=== PATIENT | female | born 2000 | race Caucasian/White ===

== ENCOUNTER 2024-01-23 16:02 | Emergency (ER) | payer OTHER, SELFPAY ==
--- NOTE | ~2024-01-23 | XR_ITS ---
XR chest 1V portable Ordering provider: Camila Pierce MD History: 23 years Female with . palpitations/tachycardia; SHIELD abdomen. 19 wks preg . Comparison: None. FINDINGS: MEDIASTINUM: The cardiac silhouette is not enlarged. LUNGS: No effusions or pneumothorax. Prominent bronchovascular markings in the left lower lobe medial ly. Early pneumonia is not excluded. OTHER: No free air under the diaphragm. IMPRESSION: Prominent markings in the left lower lobe medially which may indicate early pneumonia. Follow-up advi sed. Reviewed, dictated and finalized at location A. IMPRESSION: Prominent markings in the left lower lobe medially which may indicate early pne umonia. Follow-up advised.
--- NOTE | 2024-01-23 16:09 | ECG_ITS ---
Test Date: 2024-01-23 16:18:59 Measurements Intervals [place] Rate: 101 P: 19 NE: 157 QRS: 24 QRSD: 91 T: 9 QT: 341 QTc: 443 Interpretive Statements SINUS TACHYCARDIA OTHERWISE WITHIN NORMAL LIMITS No previous ECG available for comparison Electronically Signed On 01-24-2024 09:41:12 CDT by Barrie Klein M.D.
[2024-01-23 16:15] VITALS: BP 148/76; PULSE 101; RESP 16; TEMP 36.4; O2SAT 99
[2024-01-23 16:58] VITALS: BP 149/78; PULSE 100; RESP 18; O2SAT 98
--- NOTE | 2024-01-23 17:44 | ED.ARRPALP ---
HPI - Arrhythmia/Palpitations General Chief Complaint: Arrhythmia/Palpitations <Camila Pierce MD - Last Filed: 01/24/24 08:06> Stated Complaint: fast heart rate <Camila Pierce MD - Last Filed: 01/24/24 08:06> Time Seen by Provider: 01/23/24 16:58 <Camila Pierce MD - Last Filed: 01/24/24 08:06> Source: patient and other (Boyfriend) <Camila Pierce MD - Last Filed: 01/24/24 08:06> Mode of arrival: ambulatory <Camila Pierce MD - Last Filed: 01/24/24 08:06> Limitations: no limitations <Camila Pierce MD - Last Filed: 01/24/24 08:06> History of Present Illness HPI narrative: 23-year-old female at approximately 19 weeks gestational age presents with complaint of palpitations. She was sitting while at rest using her laptop when she felt like heart was racing and beating out of her chest. She checked her watch at this time and her heart rate was between 100 and 125 beats per minute. She has had a slight nonproductive cough but notes that this has generally only been she has not eaten for a bit. Denies any fevers or syncope. No history of anxiety or panic attacks. Denies any vision changes during the episode. Denies any underlying respiratory or cardiac history. This has never happened before. She did have some shortness breath which is now resolved. She has had no chest pain. She follows with Dr. Jarad Minor as her inspectors and regulatory officers. She denies leakage of fluid or contractions. He does feel like she has had some decreased movement today. <Camila Pierce MD - Last Filed: 01/24/24 08:06> Related Data Allergies/Adverse Reactions: Allergies Allergy/AdvReac Type Severity Reaction Status Date / Time No Known Allergies Allergy Verified 01/23/24 16:18 <Camila Pierce MD - Last Filed: 01/24/24 08:06> Exam Narrative: GENERAL: Well-appearing, well-nourished, and in no acute distress. HEAD: Normocephalic, atraumatic. EYES: Non injected, non icteric ENT: Nares clear, no rhinorrhea or epistaxis. NECK: Supple. CHEST: Speaking in full sentences. No respiratory distress. Lungs clear to auscultation bilaterally without wheezes or crackles. HEART: Mildly tachycardic rate and rhythm. Normal S1-S2 without appreciable murmur. ABDOMEN: Soft, nondistended. Obese. EXTREMITIES: Normal range of motion. No lower extremity edema bilaterally. SKIN: Warm, dry, no rash. NEURO: No focal deficits. Alert and oriented x3. PSYCH: Normal mood and affect. <Camila Pierce MD - Last Filed: 01/24/24 08:06> Course Vital Signs Vital signs: Vital Signs Temperature 97.5 F L 01/23/24 16:15 Pulse Rate 101 H 01/23/24 16:15 Respiratory Rate 16 01/23/24 16:15 Blood Pressure 148/76 H 01/23/24 16:15 Pulse Oximetry 99 01/23/24 16:15 Oxygen Delivery Room Air 01/23/24 16:15 Temperature 98.3 F 01/23/24 19:27 Pulse Rate 98 01/23/24 19:27 Respiratory Rate 19 01/23/24 19:27 Blood Pressure 137/67 01/23/24 19:27 Pulse Oximetry 100 01/23/24 19:27 Oxygen Delivery Room Air 01/23/24 16:15 <Camila Pierce MD - Last Filed: 01/24/24 08:06> Vital Signs Temperature 97.5 F L 01/23/24 16:15 Pulse Rate 101 H 01/23/24 16:15 Respiratory Rate 16 01/23/24 16:15 Blood Pressure 148/76 H 01/23/24 16:15 Pulse Oximetry 99 01/23/24 16:15 Oxygen Delivery Room Air 01/23/24 16:15 Temperature 98.3 F 01/23/24 19:27 Pulse Rate 98 01/23/24 19:27 Respiratory Rate 19 01/23/24 19:27 Blood Pressure 137/67 01/23/24 19:27 Pulse Oximetry 100 01/23/24 19:27 Oxygen Delivery Room Air 01/23/24 16:15 <Barrie León MD - Last Filed: 01/23/24 20:46> MDM - Arrhythmia/Palpitations MDM Narrative Medical decision making narrative: 23-year-old female at 19 weeks 3 days gestational age based on stated estimated due date of 06/15/2024 presents with palpita
[2024-01-23 18:22] VITALS: BP 151/83; PULSE 104; RESP 18; O2SAT 99
[2024-01-23 19:02] LABS: Basophils Absolute Auto 0.1 K/mm3 (0.0-0.1); Basophils Percent Auto 0.3 % (0.2-1.2); Eosinophils Absolute Auto 0.2 K/mm3 (0-0.3); Eosinophils Percent Auto 1.5 % (0-4.4); Hematocrit 35.3 % (37.0-47.0); Hemoglobin 11.5 g/dL (12.0-15.0); Immature Granulocyte Absolute 0.19 K/mm3 (0.00-0.031); Immature Granulocyte Percent A 1.2 % (0-0.5); Lymphocytes Absolute Auto 2.54 K/mm3 (0.9-3.2); Lymphocytes Percent Auto 16.4 % (18.3-44.2); Mean Corpuscular HGB Conc 32.6 g/dl (32-36); Mean Corpuscular Hemoglobin 26.4 pg (26-34); Mean Corpuscular Volume 81.1 fl (80-100); Mean Platelet Volume 9.9 fl (7.4-10.4); Monocytes Absolute Auto 1.1 K/mm3 (0.1-0.6); Monocytes Percent Auto 7.2 % (2.6-8.5); Neutrophils Absolute Auto 11.4 K/mm3 (1.3-6.7); Neutrophils Percent Auto 73.4 % (45.5-73.1); Platelet Count Result 268 k/mm3 (150-375); Red Blood Count 4.35 M/mm3 (4.2-5.4); Red Cell Distribution Width 13.2 % (11.5-14.5); White Blood Count 15.5 K/mm3 (4.5-10.0)
[2024-01-23 19:14] LABS: Prothrombin Time 13.9 Seconds (11.1-14.7)
[2024-01-23 19:15] LABS: Alanine Aminotransferase 15 U/L (6-35); Albumin Level 3.9 g/dL (3.5-5.1); Alkaline Phosphatase 52 U/L (38-126); Anion Gap 8 mmol/L (4-12); Aspartate Amino Transferase 23 U/L (14-36); Bilirubin,Total 0.2 mg/dL (0.2-1.3); Blood Urea Nitrogen 7 mg/dL (7-17); Calcium 8.9 mg/dL (8.4-10.2); Carbon Dioxide 22 mmol/L (22-30); Chloride 105 mmol/L (98-107); Estimated CRCL calculation 203 ml/min; Estimated Glomerular Filt Rate > 60; Glucose 96 mg/dL (65-110); Partial Thromboplastin Time 27.7 Seconds (22.3-36.8); Potassium 3.8 mmol/L (3.4-5.0); Sodium 135 mmol/L (137-145)
[2024-01-23 19:17] LABS: D Dimer 0.27 ug/mL (<0.48)
[2024-01-23 19:27] VITALS: BP 137/67; PULSE 98; RESP 19; TEMP 36.8; O2SAT 100
[2024-01-23 20:16] LABS: Influenza A QL RT-PCR Negative (Negative); Influenza B QL RT-PCR Negative (Negative); RSV RNA, RT-PCR Negative (Negative); SARS-CoV-2 RNA PCR Negative (Negative)
[2024-01-23] MEDS: AMOXICILLIN/CLAVULANATE K 875-125 MG TAB 1 TABLET PO (21:02)
[2024-01-23] MEDS: AZITHROMYCIN 250 MG TABLET 500 MG PO (21:02)
== END 2024-01-23 20:55 | disposition home or self-care (01) ==
PROVIDERS: Student in an Organized Health Care Education/Training Program; Emergency Provider Emergency Medicine
DX: O99.512 Diseases of the respiratory system complicating pregnancy, second trimester (principal); J18.9 Pneumonia, unspecified organism; O99.891 Other specified diseases and conditions complicating pregnancy; R00.0 Tachycardia, unspecified; Z20.822 Contact with and (suspected) exposure to COVID-19; Z3A.19 19 weeks gestation of pregnancy
CPT/HCPCS: 36415; 71045; 80053; 85025; 85380; 85610; 85730; 87637; 93005; 99283; A9270

== ENCOUNTER 2024-03-17 10:39 | Emergency (ER) | payer OTHER, SELFPAY ==
--- NOTE | ~2024-03-17 | XR_ITS ---
Clinical Indication: Cough PA and lateral views of the chest: Comparison: 01/23/2024 Findings: The lungs are clear, without evidence of focal consolidation or pleural effusion. Cardiome diastinal silhouette is within normal limits. Bones and soft tissues are unremarkable. Impression: Normal chest. Reviewed, dictated and finalized at location . RUMENTAL MUSIC TEACHER Impression: Normal chest.
--- NOTE | 2024-03-17 10:45 | ED.URI ---
HPI - URI/Sore Throat General Chief Complaint: Upper Respiratory Infection Stated Complaint: Congestion Time Seen by Provider: 03/17/24 10:50 Source: patient Mode of arrival: ambulatory Limitations: no limitations History of Present Illness HPI Narrative: iVk is a 23-year-old female patient presenting to the clinic today with complaints of productive cough with yellow phlegm, headache, sore throat, bilateral ear pain, nasal and chest congestion, and shortness of breath x3 days. She took Tylenol and Benadryl this morning. She is 27 weeks . Denies any chest pain. No history of prior DVT or PE. Was diagnosed with pneumonia back in January. No fever or chills. She does not appear to be any respiratory distress. She is able speak in full sentences without gasping for air in between words. She denies any abdominal pain or vaginal discharge. States that the baby has been active. MD elicited complaint: cough, sore throat, rhinorrhea, nasal congestion and other Related Data Allergies Allergy/AdvReac Type Severity Reaction Status Date / Time No Known Allergies Allergy Verified 03/17/24 11:00 Review of Systems Review of Systems: Pertinent positives per HPI. Patient denies any fever, chills, rash, headache, visual changes, dizziness, chest pain, palpitations, nausea, vomiting, diarrhea, constipation, abdominal pain, or any urinary issues. PMFSH Comments At the time of my signature, I reviewed and agree with the nursing past medical, surgical, social, and family history. There is no relevant family history pertinent to the patient complaint. Exam Narrative: General: Well-developed, morbidly obese, in no apparent distress Head: Normocephalic, atraumatic Eyes: Pupils equally round and reactive to light bilaterally, EOM intact, sclera and conjunctive clear, no discharge, lids normal Ears: TMs intact and congested, ear canals clear, no drainage, grossly hearing normal. Nose: Nares patent, clear nasal discharge, no inflammation, no sinus tenderness. Mouth: Oral pharynx without lesions or masses, good dentition, MMM. Neck: Supple, trachea midline, no enlargement of anterior or posterior cervical nodes, no thyroid masses or goiter palpable. Cardio: Regular rate and rhythm, s1 and s2 normal, no murmur appreciated. Resp: Clear to auscultation bilaterally, no rhonchi, rales, wheezing or rubs Course Course Emergency Course: Portions of this record may have been created with voice recognition software. Level of Care: Express Care Visit Vital Signs Vital signs: Vital Signs Oxygen Delivery Room Air 03/17/24 10:47 Temperature 36.6 C 03/17/24 10:49 Pulse Rate 114 H 03/17/24 10:49 Respiratory Rate 16 03/17/24 10:49 Blood Pressure 129/91 H 03/17/24 10:49 Pulse Oximetry 96 03/17/24 10:49 Oxygen Delivery Room Air 03/17/24 10:47 Vital signs reviewed MDM - URI/Sore Throat MDM Narrative Medical decision making narrative: At the time of visit patient is resting comfortably on the exam table. Patient appears to be nontoxic. Labs: COVID, influenza, and strep test were performed. All testing was negative. We will send strep for culture. Diagnostics: Chest x-ray is negative for any acute cardiopulmonary process. heart tones: heart tones were 148 in the clinic today Plan: Wells criteria- 1.5% low risk for PE. I suspect patient has URI with cough and congestion. Prescription for albuterol inhaler was sent to the pharmacy. Supportive measures were discussed with the patient and they voiced understanding discharge instructions and agrees to treatment plan. Return precautions reviewed Differential Diagnosis Differential diagnosis: Likely upper respiratory infection, otitis media, sinusitis, viral infection, bronchitis, influenza and pharyngitis Lab Data Labs: Lab Results 03/17/24 03/17/24 Range/Units 11:05 11:11 POC Influenza A Ag Negative (Negative) POC Influenza B Ag Negative (Negative) POC SARS CoV-2 Ag Pending POC Grp A Strep Screen Negative (Negative) Discharge Plan Discharge Clinical Impression: Upper respiratory infection with cough and congestion Patient Disposition: Home, Self-Care Condition: Stable Instructions: Antibiotic Form, Upper Respiratory Infection (ED) Additional Instructions: COVID, influenza, and strep test were all negative in the clinic today. We will send strep for culture. Chest x-rays negative for any acute cardiopulmonary process. Take prescription medications only as prescribed-albuterol inhaler Increase fluids and stay well hydrated Tylenol for pain/fever Flonase and OTC antihistamines such as Zyrtec or Claritin as directed Vicks vapor rub to open sinuses Sinus rinses for congestion Cepacol spray, cough drops, throat lozenges, warm tea with honey/lemon, gargle salt water to soothe throat BRAT diet for diarrhea Clear liquids x 24 hours then advance as tolerated for nausea/vomiting Go to the ED if you develop a worsening in your condition- high fever not controlled by Tylenol or Motrin, dehydration, weakness, lethargy, shortness of breath, or chest pain. Follow up with your PCP in 3-5 days if symptoms persist. Approved Medications for Patients Cold and Flu Symptoms --Tylenol (regular or extra Strength) Fever (call if over 101?)--Tylenol (regular or extra Strength) Nasal Drainage/Head Congestion--Chlor-Trimeton, Sudafed, Tavist,Tylenol Sinus Cough--Robitussin, Delsym, Mucinex Sore Throat--Chloraseptic, Cepacol lozenges Allergy Symptoms--Benadryl, Zyrtec, Zyrtec D, Claritin, Claritin D Nausea--Emetrol, Vitamin B6 Tablets, Rosario, Rosario Tea, Preggie Pops, B-Rubia Suckers Constipation--Milk of Magnesia, Metamucil, Fiberall, Konsyl, Colace (Docusate Sodium) Diarrhea--Imodium, Kaopectate, Follow BRAT diet: bananas, rice, applesauce, tea/toast Heartburn--Maalox, Mylanta, TUMS, Prilosec OTC, Zantac, Tagament, Prevacid, Pepcid Hemorrhoids--Tucks Pads, Anusol, Preparation H, warm sitz baths Patient Language: Montenegrin Prescriptions: New albuterol sulfate 90 mcg/actuation HFA aerosol inhaler 2 puff inhalation Q4-6H PRN (Reason: shortness of breath or wheezing) 30 Days Qty: 8.5 0RF No Action azithromycin 250 mg tablet 250 mg PO DAILY 4 Days Qty: 4 0RF Rx Instructions: start on day 2 of therapy amoxicillin-pot clavulanate 875-125 mg tablet 1 tablet PO Q12H Qty: 14 0RF Follow-up/Referrals: PHYSICIAN,AGRICULTURAL PRODUCTION ENGINEER [Primary Care Provider] - Time of Disposition: 11:49 Quality NIHSS Nursing Documentation ED NIHSS nursing documentation: reviewed/agree
[2024-03-17 10:49] VITALS: BP 129/91; PULSE 114; RESP 16; TEMP 36.6; O2SAT 96
[2024-03-17 11:06] LABS: EDSTREPNEGPOS1 Negative (Negative)
[2024-03-17 11:13] LABS: EDINFLUASCREEN Negative (Negative); EDINFLUBSCREEN Negative (Negative)
[2024-03-17 14:03] LABS: EDCOVIDSCREEN Yes (Negative)
== END 2024-03-17 11:45 | disposition home or self-care (01) ==
PROVIDERS: Emergency Provider Nurse Practitioner Family
DX: O99.512 Diseases of the respiratory system complicating pregnancy, second trimester (principal); Z3A.27 27 weeks gestation of pregnancy; J06.9 Acute upper respiratory infection, unspecified; Z20.822 Contact with and (suspected) exposure to COVID-19
CPT/HCPCS: 71046; 87081; 87426; 87804; 87880; 99213; G0463

== ENCOUNTER 2024-03-17 17:57 | Observation (INO) | payer OTHER, SELFPAY ==
[2024-03-17] VITALS (18 sets, daily range): BP systolic 134–156; BP diastolic 72–92; PULSE 67–142; RESP 16–24; TEMP 36.6–37.1; O2SAT 78–99; BMI 52.5
--- NOTE | 2024-03-17 18:10 | ECG_ITS ---
Test Date: 2024-03-17 18:18:36 Measurements Intervals [place] Rate: 128 P: 35 UT: 145 QRS: 55 QRSD: 85 T: 31 QT: 302 QTc: 441 Interpretive Statements SINUS TACHYCARDIA ABNORMAL RHYTHM ECG Compared to ECG 01/23/2024 16:18:59 No significant changes Electronically Signed On 03-17-2024 19:06:07 MERCHANDISE APPRAISER by Ysabel Kennedy
[2024-03-17 20:47] LABS: Basophils Absolute Auto 0.1 K/mm3 (0.0-0.1); Basophils Percent Auto 0.4 % (0.2-1.2); Eosinophils Absolute Auto 0.2 K/mm3 (0-0.3); Eosinophils Percent Auto 1.4 % (0-4.4); Hematocrit 36.9 % (37.0-47.0); Hemoglobin 12.1 g/dL (12.0-15.0); Immature Granulocyte Absolute 0.15 K/mm3 (0.00-0.031); Immature Granulocyte Percent A 1.2 % (0-0.5); Lymphocytes Absolute Auto 1.62 K/mm3 (0.9-3.2); Lymphocytes Percent Auto 13.3 % (18.3-44.2); Mean Corpuscular HGB Conc 32.8 g/dl (32-36); Mean Corpuscular Hemoglobin 26.1 pg (26-34); Mean Corpuscular Volume 79.7 fl (80-100); Mean Platelet Volume 9.8 fl (7.4-10.4); Monocytes Absolute Auto 1.2 K/mm3 (0.1-0.6); Monocytes Percent Auto 9.8 % (2.6-8.5); Neutrophils Percent Auto 73.9 % (45.5-73.1); Platelet Count Result 271 k/mm3 (150-375); Red Blood Count 4.63 M/mm3 (4.2-5.4); Red Cell Distribution Width 13.3 % (11.5-14.5); White Blood Count 12.2 K/mm3 (4.5-10.0)
[2024-03-17 21:02] LABS: Alanine Aminotransferase 24 U/L (6-35); Albumin Level 3.9 g/dL (3.5-5.1); Alkaline Phosphatase 81 U/L (38-126); Anion Gap 9 mmol/L (4-12); Aspartate Amino Transferase 59 U/L (14-36); Bilirubin,Total 0.4 mg/dL (0.2-1.3); Blood Urea Nitrogen 7 mg/dL (7-17); Calcium 9.2 mg/dL (8.4-10.2); Carbon Dioxide 18 mmol/L (22-30); Chloride 104 mmol/L (98-107); Estimated CRCL calculation 176 ml/min; Estimated Glomerular Filt Rate > 60; Glucose 93 mg/dL (65-110); Lipase 43 U/L (23-300); Potassium 3.9 mmol/L (3.4-5.0); Sodium 131 mmol/L (137-145)
[2024-03-17 21:06] LABS: Prothrombin Time 13.8 Seconds (11.1-14.7)
[2024-03-17] MEDS: SODIUM CHLORIDE 0.9% IV 1,000 ML 999 ML IV CONT (21:09)
[2024-03-17 21:14] LABS: Troponin I < 0.012 ng/mL (0.000-0.034)
[2024-03-17 21:15] LABS: Lactate Dehydrogenase 181 U/L (120-246); Magnesium 1.6 mg/dL (1.6-2.3); Uric Acid 6.2 mg/dL (2.5-7.5)
[2024-03-17 21:21] LABS: Add Urine Microscopic? YES; Appearance Urine Cloudy (Clear); Bacteria Urine Rare /hpf; Bilirubin Urine Negative (Negative); Blood Urine Negative (Negative); Color Urine Yellow (Yellow); Glucose Urine UA Negative (Negative); Ketones Urine 1+ mg/dL (Negative); Leukocyte Esterase Ur 1+ LEU/UL (Negative); Nitrate Urine Negative (Negative); Non Pathogenic Casts 0-2; Protein Urine Negative (Negative); RBC Urine 0-2 /hpf (0-2); Specific Grav Ur 1.008 (1.001-1.035); Squamous Epithelial Cell Urine Few /hpf (Few); Urobilinogen Urine 0.2 mg/dL (<2.0); pH Urine 6.5 (5.0-9.0)
[2024-03-17 21:54] LABS: Troponin I < 0.012 ng/mL (0.000-0.034)
--- NOTE | 2024-03-17 22:02 | ED_ITS ---
HPI - Chest Pain General Chief Complaint: Chest Pain Stated Complaint: chest pain Time Seen by Provider: 03/17/24 20:39 History of Present Illness HPI narrative: Patient is a 23-year-old female who presents to the emergency department this evening with multiple complaints. Patient is approximately [address] Minor as her OBGYN. She states that within the past 3 days she has been having URI symptoms including a cough, chest pain, right ear pain, nausea and vomiting. Patient also states that she has been having headaches for the past 3 days. Denies any history of migraine headaches and denies any history of hypertension. Patient admits that this is her 1st . Patient was seen at an urgent care and had negative viral swabs there today but was sent to our facility for further evaluation given that she is 27 weeks . Denies any additional symptoms or concerns at this time. Related Data Allergies Allergy/AdvReac Type Severity Reaction Status Date / Time No Known Allergies Allergy Verified 03/17/24 11:00 Review of Systems 2 Review of Systems: All systems are reviewed and are negative unless stated otherwise in the HPI. Exam 2 Narrative: General: Alert, awake, afebrile, in no acute distress. HEENT: PERRL, no rhinorrhea, no post nasal drip, oropharynx clear. Neck: Trachea midline, no JVD, no lymphadenopathy. Cardiovascular: Regular rate and rhythm, no murmurs, rubs or gallops, no peripheral edema. Respiratory: Clear to auscultation bilaterally, no tachypnea, no wheezing, no rhonchi, no rubs, no respiratory distress. Abdomen: Soft, nontender, nondistended, no rebound, no guarding, no peritoneal signs. Musculoskeletal: No joint swelling or deformity, normal muscle tone. Skin: No rashes or petechia, no signs of infection. Psychiatric: Alert and oriented, normal behavior and judgment for situation. Neurological: Alert and oriented to person, place, and time. Follows all commands. No focal deficits, speech is clear and fluent. Course Vital Signs Vital signs: Vital Signs Temperature 98 F 03/17/24 18:11 Pulse Rate 126 H 03/17/24 18:11 Respiratory Rate 16 03/17/24 18:11 Blood Pressure 148/92 H 03/17/24 18:11 Pulse Oximetry 98 03/17/24 18:11 Temperature 98 F 03/17/24 18:11 Pulse Rate 126 H 03/17/24 20:44 Respiratory Rate 24 H 03/17/24 20:44 Blood Pressure 144/73 H 03/17/24 20:44 Pulse Oximetry 96 03/17/24 20:44 Oxygen Delivery Room Air 03/17/24 20:42 MDM - Chest Pain MDM Narrative Medical decision making narrative: The patient was evaluated by myself in the emergency department. History is obtained from patient who is an independent historian and physical exam was performed. External medical records were reviewed at this time. IV was established and pertinent tests were ordered. Patient's blood pressure has been persistently elevated over 140 systolic during her 4 hour ED stay with blood pressure readings of 148/92, 149/73, 144/131 and 151/79. Patient denies any history of hypertension and states that she has never taken any blood pressure medications. EKG was obtained which revealed sinus tachycardia rate of 128 beats per Min. No ST changes, T wave inversions or evidence of acute ischemia. EKG was independently interpreted by me and is currently pending official cardiology read. Laboratory results obtained revealing a leukocytosis of 12.2, AST 59 otherwise unremarkable. Urinalysis revealed 1+ ketones. Patient was administered 1 L IV fluid bolus with normal saline. Given her ear pain and right tympanic membrane erythema patient was also started on Augmentin b.i.d. for otitis media. Differential diagnosis considerations include acute viral syndrome, dehydration, electrolyte derangements, preeclampsia. Comorbidities impacting this visit include current 2nd trimester . At this time, case was discussed with the on-call OBGYN for Dr. Minor, Dr. Sher at 2200 regarding admission for concern for preeclampsia. After discussing the case with him he did agree to admitting the patient to L&D for observation. I have evaluated and discussed social determinants of health with the patient that could potentially impact subsequent diagnosis and treatment plans. On repeat assessment of the patient, reevaluation revealed that the patient is doing well and is in no acute distress. Patient symptoms have improved since she arrived to our emergency department. Repeat vital signs were all reviewed and noted to be stable. Differential diagnosis and treatment plan were discussed with the patient at bedside. Patient agrees with discussion and after shared medical decision making agrees with admission. All questions were answered to the patient's satisfaction. Patient was admitted to our labor and delivery unit in stable condition. Lab Data 03/17/24 20:41 03/17/24 20:41 Labs: Lab Results 03/17/24 03/17/24 03/17/24 Range/Units 20:41 21:08 21:27 WBC 12.2 H (4.5-10.0) K/mm3 RBC 4.63 (4.2-5.4) M/mm3 Hgb 12.1 (12.0-15.0) g/dL Hct 36.9 L (37.0-47.0) % MCV 79.7 L (80-100) fl MCH 26.1 (26-34) pg MCHC 32.8 (32-36) g/dl RDW 13.3 (11.5-14.5) % Plt Count 271 (150-375) k/mm3 MPV 9.8 (7.4-10.4) fl Immature Gran % (Auto) 1.2 H (0-0.5) % Neut % (Auto) 73.9 H (45.5-73.1) % Lymph % (Auto) 13.3 L (18.3-44.2) % [place] % (Auto) 9.8 H (2.6-8.5) % Eos % (Auto) 1.4 (0-4.4) % Baso % (Auto) 0.4 (0.2-1.2) % Lymph # (Auto) 1.62 (0.9-3.2) K/mm3 [place] # (Auto) 1.2 H (0.1-0.6) K/mm3 Eos # (Auto) 0.2 (0-0.3) K/mm3 Baso # (Auto) 0.1 (0.0-0.1) K/mm3 Abs Immat Gran (auto) 0.15 H (0.00-0.031) K/mm3 Absolute Neuts (auto) 9.0 H (1.3-6.7) K/mm3 Absolute Nucleated RBC 0.000 (0.0-0.012) K/mm3 Nucleated RBC % 0.0 (0.0-0.2) % PT 13.8 (11.1-14.7) Seconds INR 1.0 APTT 29.0 (22.3-36.8) Seconds Sodium 131 L (137-145) mmol/L Potassium 3.9 (3.4-5.0) mmol/L Chloride 104 (98-107) mmol/L Carbon Dioxide 18 L (22-30) mmol/L Anion Gap 9 (4-12) mmol/L BUN 7 (7-17) mg/dL Creatinine 0.60 L (0.7-1.0) mg/dL Estim Creat Clear Calc 176 ml/min Estimated GFR > 60 (59 - ) Glucose 93 (65-110) mg/dL Uric Acid 6.2 (2.5-7.5) mg/dL Calcium 9.2 (8.4-10.2) mg/dL Magnesium 1.6 (1.6-2.3) mg/dL Total Bilirubin 0.4 (0.2-1.3) mg/dL AST 59 H (14-36) U/L ALT 24 (6-35) U/L Alkaline Phosphatase 81 (38-126) U/L Lactate Dehydrogenase 181 (120-246) U/L Troponin I < 0.012 < 0.012 (0.000-0.034) ng/mL Total Protein 7.0 (6.3-8.2) g/dL Albumin 3.9 (3.5-5.1) g/dL Lipase 43 (23-300) U/L Urine Color Yellow (Yellow) Urine Appearance Cloudy H (Clear) Urine pH 6.5 (5.0-9.0) Ur Specific [place] 1.008 (1.001-1.035) Urine Protein Negative (Negative) mg/dL Urine Glucose (UA) Negative (Negative) mg/dL Urine Ketones 1+ H (Negative) mg/dL Ur Blood (Man) Negative (Negative) Urine Nitrate Negative (Negative) Urine Bilirubin Negative (Negative) Urine Urobilinogen 0.2 (<2.0) mg/dL Leukocyte Esterase Rfl 1+ H (Negative) QUINTIN/UL Urine RBC 0-2 (0-2) /hpf Urine WBC 6-10 H (0-3) /hpf Ur Squamous Epith Cells Few (Few) /hpf Urine Bacteria Rare /hpf Urine Casts 0-2 Discharge Plan Discharge Clinical Impression: Acute viral syndrome, Pre-eclampsia Patient Disposition: Still a Patient Condition: Improved Patient Language: Mongolian Prescriptions: No Action albuterol sulfate 90 mcg/actuation HFA aerosol inhaler 2 puff inhalation Q4-6H PRN (Reason: shortness of breath or wheezing) 30 Days Qty: 8.5 0RF azithromycin 250 mg tablet 250 mg PO DAILY 4 Days Qty: 4 0RF Rx Instructions: start on day 2 of therapy amoxicillin-pot clavulanate 875-125 mg tablet 1 tablet PO Q12H Qty: 14 0RF Follow-up/Referrals: PHYSICIAN,DIRECTOR DIGITAL COMMUNICATIONS [Primary Care Provider] - Time of Disposition: 22:41
[2024-03-17] MEDS: AMOXICILLIN/CLAVULANATE K 875-125 MG TAB 1 TABLET PO (22:53)
--- NOTE | 2024-03-17 22:57 | PC.NURSE ---
Pt arrives to unit from the ED with a headache, cough, right ear pain, and nausea.
--- NOTE | 2024-03-17 23:26 | OBADM ---
This patient, Rochelle Louise, admitted to the OB room [facility] Post [facility] for observation. Patient/family oriented to hospital policies and general routines including ID bracelet, bed and alarms, visiting hours, pain management, procedures, bathroom and other care routines, personal items, smoking policy, room service/diet, and visiting hours. Patient/Family are encouraged to report perceived risks to care and to ask questions if they do not understand what they are told or what they should do.
--- NOTE | 2024-03-17 23:42 | PC.NURSE ---
Called Fide Souza CNM, update on pt, headache, cough, right ear pain, nausea, blood pressure, tracing, EKG, chest X-ray, labs, and medications given in the ER. Orders received to administer LR at 125 ml/hr, tylenol 1000 mg as needed, robitussin as needed, vitals signs every four hours, and NST every shift.
[2024-03-18] VITALS (31 sets, daily range): BP systolic 124–156; BP diastolic 65–98; PULSE 66–159; RESP 18–20; TEMP 36.3–36.6; O2SAT 78–100
[2024-03-18] MEDS: LACTATED RINGERS 1,000 ML 125 ML IV CONT ×2 (00:07→07:58)
[2024-03-18] MEDS: guaiFENesin/DEXTROMETHORPHAN 10 ML UDC 5 ML PO ×2 (00:12→04:05)
[2024-03-18] MEDS: ACETAMINOPHEN 500 MG TABLET 1000 MG PO (03:50)
[2024-03-18] MEDS: CALCIUM CARBONATE (TUMS) 500 MG (200 MG ELEMENTAL) PO (03:50)
--- NOTE | 2024-04-10 11:20 | P.PNOB_ITS ---
OB - Triage/Final Diagnosis Visit Information Comments/Additional reasons for admission: I have assessed the risk for this patient, Rochelle Louise, and determined that she would benefit from observation care. Evaluation Laboratory results: Laboratory Tests 03/17/24 03/17/24 03/17/24 20:41 21:08 21:27 WBC 12.2 H RBC 4.63 Hgb 12.1 Hct 36.9 L MCV 79.7 L MCH 26.1 MCHC 32.8 RDW 13.3 Plt Count 271 MPV 9.8 Immature Gran % (Auto) 1.2 H Neut % (Auto) 73.9 H Lymph % (Auto) 13.3 L [place] % (Auto) 9.8 H Eos % (Auto) 1.4 Baso % (Auto) 0.4 Lymph # (Auto) 1.62 [place] # (Auto) 1.2 H Eos # (Auto) 0.2 Baso # (Auto) 0.1 Abs Immat Gran (auto) 0.15 H Absolute Neuts (auto) 9.0 H Absolute Nucleated RBC 0.000 Nucleated RBC % 0.0 PT 13.8 INR 1.0 APTT 29.0 Sodium 131 L Potassium 3.9 Chloride 104 Carbon Dioxide 18 L Anion Gap 9 BUN 7 Creatinine 0.60 L Estim Creat Clear Calc 176 Estimated GFR > 60 Glucose 93 Uric Acid 6.2 Calcium 9.2 Magnesium 1.6 Total Bilirubin 0.4 AST 59 H ALT 24 Alkaline Phosphatase 81 Lactate Dehydrogenase 181 Troponin I < 0.012 < 0.012 Total Protein 7.0 Albumin 3.9 Lipase 43 Urine Color Yellow Urine Appearance Cloudy H Urine pH 6.5 Ur Specific [place] 1.008 Urine Protein Negative Urine Glucose (UA) Negative Urine Ketones 1+ H Ur Blood (Man) Negative Urine Nitrate Negative Urine Bilirubin Negative Urine Urobilinogen 0.2 Leukocyte Esterase Rfl 1+ H Urine RBC 0-2 Urine WBC 6-10 H Ur Squamous Epith Cells Few Urine Bacteria Rare Urine Casts 0-2 Final Diagnosis (1) Upper respiratory infection: Code(s): J06.9 - Acute upper respiratory infection, unspecified Status: Acute
== END 2024-03-18 10:07 | disposition home or self-care (01) ==
LOC: ANHED 22:41 → ANHOBPP 23:03
PROVIDERS: Family Medicine; Admitting Provider Obstetrics & Gynecology; Emergency Provider Emergency Medicine; Visit Provider Obstetrics & Gynecology
DX: O99.512 Diseases of the respiratory system complicating pregnancy, second trimester (principal); J06.9 Acute upper respiratory infection, unspecified; O14.92 Unspecified pre-eclampsia, second trimester; Z3A.27 27 weeks gestation of pregnancy; Z20.822 Contact with and (suspected) exposure to COVID-19
CPT/HCPCS: 36415; 59025; 71046; 80053; 81001; 83615; 83690; 83735; 84484; 84550; 85025; 85610; 85730; 87081; 87086; 87426; 87804; 87880; 93005; 96360; 96361; 99285; A9270; G0378; J7030; J7120

== ENCOUNTER 2024-04-23 15:55 | Outpatient (CLI) | payer OTHER, SELFPAY ==
[2024-04-23 16:31] VITALS: BP 141/75; PULSE 99
[2024-04-23 16:35] LABS: Add Urine Microscopic? NO; Appearance Urine Clear (Clear); Bilirubin Urine Negative (Negative); Blood Urine Negative (Negative); Color Urine Yellow (Yellow); Glucose Urine UA Negative (Negative); Ketones Urine 1+ mg/dL (Negative); Leukocyte Esterase Ur Negative LEU/UL (Negative); Nitrate Urine Negative (Negative); Protein Urine Negative (Negative); Specific Grav Ur 1.006 (1.001-1.035); Urobilinogen Urine 0.2 mg/dL (<2.0)
[2024-04-23 16:35] LABS: Basophils Percent Auto 0.3 % (0.2-1.2); Eosinophils Absolute Auto 0.1 K/mm3 (0-0.3); Eosinophils Percent Auto 0.7 % (0-4.4); Hematocrit 37.8 % (37.0-47.0); Hemoglobin 12.2 g/dL (12.0-15.0); Immature Granulocyte Absolute 0.08 K/mm3 (0.00-0.031); Immature Granulocyte Percent A 0.7 % (0-0.5); Lymphocytes Absolute Auto 2.22 K/mm3 (0.9-3.2); Lymphocytes Percent Auto 18.2 % (18.3-44.2); Mean Corpuscular HGB Conc 32.3 g/dl (32-36); Mean Corpuscular Hemoglobin 25.6 pg (26-34); Mean Corpuscular Volume 79.2 fl (80-100); Mean Platelet Volume 10.8 fl (7.4-10.4); Monocytes Absolute Auto 0.9 K/mm3 (0.1-0.6); Monocytes Percent Auto 7.2 % (2.6-8.5); Neutrophils Absolute Auto 8.9 K/mm3 (1.3-6.7); Neutrophils Percent Auto 72.9 % (45.5-73.1); Platelet Count Result 280 k/mm3 (150-375); Red Blood Count 4.77 M/mm3 (4.2-5.4); Red Cell Distribution Width 14.2 % (11.5-14.5); White Blood Count 12.2 K/mm3 (4.5-10.0)
[2024-04-23 16:42] LABS: Creatinine Urine 42.8 mg/dL; Total Protein Urine Random 32 mg/dL; Ur Ttl Prot Creatinine Ratio 0.75 mg/mg (0-0.20)
[2024-04-23 16:46] VITALS: BP 139/86; PULSE 109
[2024-04-23 16:50] LABS: Alanine Aminotransferase 24 U/L (6-35); Albumin Level 3.6 g/dL (3.5-5.1); Alkaline Phosphatase 89 U/L (38-126); Anion Gap 11 mmol/L (4-12); Aspartate Amino Transferase 41 U/L (14-36); Bilirubin,Total 0.4 mg/dL (0.2-1.3); Blood Urea Nitrogen 9 mg/dL (7-17); Calcium 10.3 mg/dL (8.4-10.2); Carbon Dioxide 16 mmol/L (22-30); Chloride 106 mmol/L (98-107); Estimated Glomerular Filt Rate > 60; Glucose 84 mg/dL (65-110); Potassium 4.2 mmol/L (3.4-5.0); Sodium 133 mmol/L (137-145)
[2024-04-23 17:01] VITALS: BP 130/78; PULSE 101
--- NOTE | 2024-04-23 17:07 | PC.NURSE ---
Report to Dr. Minor re: BP's and lab results. Orders to DC home with instructions re: preeclampsia.
[2024-04-23 17:12] VITALS: BMI 52.4
== END 2024-04-23 17:15 | disposition home or self-care (01) ==
LOC: ANHOBOP 16:04 → ANHLDR 16:06
PROVIDERS: Visit Provider Obstetrics & Gynecology
DX: O13.9 Gestational [pregnancy-induced] hypertension without significant proteinuria, unspecified trimester (principal); Z3A.00 Weeks of gestation of pregnancy not specified
CPT/HCPCS: 36415; 59025; 80053; 81003; 82570; 84156; 84550; 85025; 99199

== ENCOUNTER 2024-04-29 10:14 | Outpatient (CLI) | payer OTHER, SELFPAY ==
[2024-04-29 10:40] LABS: Basophils Percent Auto 0.3 % (0.2-1.2); Eosinophils Absolute Auto 0.1 K/mm3 (0-0.3); Eosinophils Percent Auto 1.1 % (0-4.4); Hematocrit 38.9 % (37.0-47.0); Hemoglobin 12.6 g/dL (12.0-15.0); Immature Granulocyte Absolute 0.06 K/mm3 (0.00-0.031); Immature Granulocyte Percent A 0.5 % (0-0.5); Lymphocytes Absolute Auto 2.22 K/mm3 (0.9-3.2); Lymphocytes Percent Auto 18.3 % (18.3-44.2); Mean Corpuscular HGB Conc 32.4 g/dl (32-36); Mean Corpuscular Hemoglobin 25.8 pg (26-34); Mean Corpuscular Volume 79.7 fl (80-100); Mean Platelet Volume 10.8 fl (7.4-10.4); Monocytes Absolute Auto 0.9 K/mm3 (0.1-0.6); Monocytes Percent Auto 7.1 % (2.6-8.5); Neutrophils Absolute Auto 8.8 K/mm3 (1.3-6.7); Neutrophils Percent Auto 72.7 % (45.5-73.1); Platelet Count Result 274 k/mm3 (150-375); Red Blood Count 4.88 M/mm3 (4.2-5.4); Red Cell Distribution Width 14.4 % (11.5-14.5); White Blood Count 12.1 K/mm3 (4.5-10.0)
[2024-04-29 10:47] VITALS: BP 123/63; PULSE 101
[2024-04-29 10:48] VITALS: BP 123/63; PULSE 85
[2024-04-29 10:49] LABS: Add Urine Microscopic? YES; Appearance Urine Clear (Clear); Bacteria Urine 2+ /hpf; Bilirubin Urine Negative (Negative); Blood Urine Negative (Negative); Color Urine Yellow (Yellow); Glucose Urine UA Negative (Negative); Ketones Urine 2+ mg/dL (Negative); Leukocyte Esterase Ur 1+ LEU/UL (Negative); Nitrate Urine Negative (Negative); Protein Urine 1+ mg/dL (Negative); RBC Urine 0-2 /hpf (0-2); Specific Grav Ur 1.017 (1.001-1.035); Squamous Epithelial Cell Urine Moderate /hpf (Few); Urobilinogen Urine 0.2 mg/dL (<2.0); WBC Urine 21-50 /hpf (0-3)
[2024-04-29 10:52] LABS: Alanine Aminotransferase 23 U/L (6-35); Albumin Level 3.4 g/dL (3.5-5.1); Alkaline Phosphatase 99 U/L (38-126); Anion Gap 11 mmol/L (4-12); Aspartate Amino Transferase 39 U/L (14-36); Bilirubin,Total 0.4 mg/dL (0.2-1.3); Blood Urea Nitrogen 9 mg/dL (7-17); Calcium 9.1 mg/dL (8.4-10.2); Carbon Dioxide 16 mmol/L (22-30); Chloride 107 mmol/L (98-107); Creatinine Urine 132.8 mg/dL; Estimated Glomerular Filt Rate > 60; Glucose 124 mg/dL (65-110); Potassium 4.2 mmol/L (3.4-5.0); Sodium 134 mmol/L (137-145); Total Protein Urine Random 49 mg/dL; Ur Ttl Prot Creatinine Ratio 0.37 mg/mg (0-0.20); Uric Acid 7.3 mg/dL (2.5-7.5)
[2024-04-29 11:02] VITALS: BP 131/76; PULSE 98
--- NOTE | 2024-04-29 11:13 | PC.NURSE ---
Fide Souza CNM in department, reviewed tracing, vital signs, and lab results. Okay to discharge.
--- OUTSIDE RECORDS SUMMARY | 2024-04-30 04:18 | XMS_ITS | Referral Summary ---
Author Organization [facility] Address [address] [place] [address] Care Team Providers Care Corrections Lieutenant Name Role Phone Jovanny Montenegro MD Primary Care Provider [phone] Allergies No known active allergies Medications albuterol HFA (PROVENTIL HFA,VENTOLIN HFA,PROAIR HFA) 90 mcg/actuation inhaler Inhale 2 puffs every 6 (six) hours as needed 02/21/2020 Active sertraline (ZOLOFT) 50 mg tabletIndication s:Mild episode of recurrent major depressive disorder (HCC),Anxiety TAKE ONE (1) TABLET (50 MG TOTAL) BY MOUTH DAILY 90 tablet 1 12/27/2021 Active Active Problems Problem Noted Date Diagnosed Date Anxiety 09/10/2021 Assessment & Plan (09/10/2021 1:33 PM CDT): Discussed indications, MOA, and adverse effects of SSRIs, anxiolytics, and daily vs PRN medications. Would like to re-start sertraline as she had previous good response. Reviewed healthy diet, benefits of exercise, and sleep hygiene. Encouraged patient to engage in counseling. Seek immediate medical attention if experiencing SI/HI. Acute maxillary sinusitis 05/24/2021 Assessment & Plan (06/20/2021 1:48 PM CDT): To completes Augmentin and, with food. Discussed benefits of sinus irrigation using distilled water only. Recommended nasal glucocorticoid. Patient to follow-up if no improvement in 1-2 weeks. Acute strain of neck muscle 05/24/2021 Assessment & Plan (06/20/2021 1:48 PM CDT): Will trial short course of muscle relaxer p.r.n. nightly. Discussed NSAID use in scheduling. We will continue to monitor. Refused influenza vaccine 03/05/2021 Encounter for screening for lipid disorder 03/05 Assessment & Plan (03/05/2021 2:01 PM RN CASE MANAGER): Results for orders placed or performed in visit on 03/05/21 POCT hemoglobin A1c Result Value Ref Range Hemoglobin A1C, POC 4.8 POCT lipid panel Result Value Ref Range Cholesterol, POC 232 mg/dL HDL, POC 35 mg/dL Triglycerides, POC 96 mg/dL LDL, Direct, POC 177 mg/dL Chol/HDL Ratio, POC 6.5 Non-HDL Cholesterol, POC 196 mg/dL Cholesterol Total, POC 232 mg/dL Discussed need to increase exercise and avoid bad fats such as red meats and fried/fatty/fast and greasy foods. Will plan to repeat labs in 6 month. Allergic rhinitis due to animal hair and dander 03/05/2021 Assessment & Plan (03/05/2021 1:44 PM RN CASE MANAGER): Encouraged patient to take daily antihistamine and avoid exposure to known irritants/animals. Encounter for medical examination to establish c are 03/05/2021 Assessment & Plan (03/05/2021 2:01 PM RN CASE MANAGER): Preventive exam; reviewed recommended preventive screenings and vaccinations. Declines annual flu vaccine. Wear sunscreen/protective clothing when outdoors. No concerns for STI and declines testing. Will request pap results from [facility] office. 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 Assessment & Plan (06/20/2021 1:52 PM CDT): Stable on current medication regimen, sertraline 50 mg daily. No changes made today. We will continue to monitor. Assessment & Plan (03/05/2021 2:00 PM RN CASE MANAGER): Depression well controlled with sertraline. Medication refilled. Denies SI/HI. Patient benefiting from counseling. Class 3 severe obesity due t o excess calories without serious comorbidity with body mass index (BMI) of 40.0 to 44.9 in adult 07/15/2017 Assessment & Plan (09/10/2021 1:33 PM CDT): Discussed healthy diet and importance of regular physical activity. Encouraged patient to track calories and pay attention to portion sizes. Will continue to monitor. Assessment & Plan (05/24/2021 9:37 AM RN CASE MANAGER): Discussed healthy diet and importance of regular physical activity. Assessment & Plan (03/05/2021 1:38 PM RN CASE MANAGER): Discussed healthy diet and importance of regular physical activity. Primary hypertriglyceridemia 08/13/2010 Resolved Problems Problem Noted Date Diagnosed Date Resolved Date Lipid screening 03/05/2021 03/05/2021 Encounter for screening for diabetes mellitus 03/05/20 21 03/05/2021 Assessment & Plan (03/05/2021 1:43 PM RN CASE MANAGER): A1c 4.8. Reviewed diet and exercise recommendations and need for weight loss. Current mild episode of alex r depressive disorder without prior episode 08/18/2017 Neck pain 05/06/2016 03/05/2021 Overview (07/12/2016): Neck pain Shoulder pain 04/19/2016 03/05/2021 Overview (07/12/2016): Shoulder pain Knee pain 01/29/2016 03/05/2021 Overview (07/12/2016): Knee pain Immunizations Name Administration Dates Next Due DTaP 09/24/2004, 0,07/23/1999,04/18,02/16/1999 DTaP 5 Pertussis 09/24/2004, 0,07/23/1999,04/18,02/16/1999 HPV, Quadrivalent 11/08/2011,01/02/2011,10/27/19 11 Hep B / HiB 07/23/1999 Hep B, Adolescent or Pediatric 12/02/2002,1999 Hib (HbOC) 03/21/2000,04/18/1999,02/16/1999 IPV 09/24/2004, 0,04/18/1999,02/16 Influenza, Quadrivalent, Spl it, Intramuscular 01/20/2019 Influenza, Trivalent, IM (MDV) 02/06/2015,2008 Influenza, Unspecified 03/05/2021(Deferr ed: Patient Refused),01/06/2020(Deferred: Patient Refused),01/06/2020(Deferred: Patient Refused),04/08/2016(Deferred: Patient Refused) MMR 09/24/2004,12/27/1999 Meningococcal ACWY, Unspecified 10/26/2010 Meningococcal MCV4P (Menactra) 2016,2014 Meningococcal Polysaccharide (Menomune) 10/26/2010 Pneumococcal Conjugate 7-Valent 12/02/2002,02/12,12/27/1999 Tdap 10/26/2010 Varicella 02/18/2014,12/10/2013,12/27/1999 Social History Tobacco Use Types Packs/Day Years Used Date Smoking Tobacco: Former Cigarettes Smokeless Tobacco: Never Alcohol Use Standard Drinks/Week Comments Not Asked 0 (1 standard drink = 0.6 oz pur e alcohol) PHQ-2 Answer Date Recorded PHQ-2 Total Score 0 09/10/2021 Personal Safety Answer Date Recorded Getting School Help Needed Not on file 06/21 Comments No Sex and Gender Information Value Date Recorded Sex Assigned at Not on file Legal Sex Female 1:47 AM RN CASE MANAGER Gender Identity Not on file Sexual Orientation Not on file Last Filed Vital Signs Vital Sign Reading Time Taken Comments Blood Pressure 110/64 09/10/2021 1:02 PM CDT Pulse 102 09/10/2021 1:02 PM CDT Temperature 36.7 ??C (98 ??F) 05/24/2021 8:56 AM RN CASE MANAGER Respiratory Rate 16 09/10/2021 1:02 PM CDT Oxygen Saturation 97% 09/10/2021 1:02 PM CDT Inhaled Oxygen Concentration - - Weight 125.1 kg (275 lb 12.8 oz) 09/10/2021 1:02 PM CDT Height 168.5 cm (5' 6.34 ) 09/10/2021 1:02 PM CD T Body Mass Index 44.06 09/10/2021 1:02 PM CDT Plan of Treatment Not on file Insurance [id number] [place] [address] [place] [place] [address] [facility] CHOICE PLUS [employer] Care Teams Corrections Lieutenant Relationship Specialty Start Date End Date Jovanny [place] [address] PCP - General Family Medicine 03/05/21
--- OUTSIDE RECORDS SUMMARY | 2024-04-30 04:18 | XMS_ITS | Clinical Summary ---
Author Organization [facility] Address [address] [place] [address] Care Team Providers Care Photoflash Powder Mixer Name Role Phone Jovanny Montenegro MD Primary Care Provider [phone] Allergies No known active allergies Medications albuterol [...] 03/05 Assessment & Plan (03/05/2021 2:01 PM FINAL TOUCH UP PAINTER): Results for orders placed or performed in [...] 03/05/2021 Assessment & Plan (03/05/2021 1:44 PM FINAL TOUCH UP PAINTER): Encouraged patient to take daily antihistamine and avoid exposure to known irritants/animals. Encounter for medical examination to establish c are 03/05/2021 Assessment & Plan (03/05/2021 2:01 PM FINAL TOUCH UP PAINTER): Preventive exam; reviewed recommended preventive screenings and vaccinations. Declines annual flu vaccine. Wear sunscreen/protective clothing when outdoors. No concerns for STI and declines testing. Will request pap results from [facility] office. 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 Assessment & Plan (06/20/2021 1:52 PM CDT): Stable on current medication regimen, sertraline 50 mg daily. No changes made today. We will continue to monitor. Assessment & Plan (03/05/2021 2:00 PM FINAL TOUCH UP PAINTER): Depression well controlled with sertraline. Medication refilled. [...] monitor. Assessment & Plan (05/24/2021 9:37 AM FINAL TOUCH UP PAINTER): Discussed healthy diet and importance of regular physical activity. Assessment & Plan (03/05/2021 1:38 PM FINAL TOUCH UP PAINTER): Discussed healthy diet and importance of regular physical activity. Primary hypertriglyceridemia 08/13/2010 Resolved Problems Problem Noted Date Diagnosed Date Resolved Date Lipid screening 03/05/2021 03/05/2021 Encounter for screening for diabetes mellitus 03/05/20 21 03/05/2021 Assessment & Plan (03/05/2021 1:43 PM FINAL TOUCH UP PAINTER): A1c 4.8. Reviewed diet and exercise recommendations [...] Conjugate 7-Valent 12/02/2002,02/12,12/27/1999 Tdap 10/26/2010 Varicella 02/18/2014,12/10/2013,12/27/1999 Medical History Medical History Date Comments Asthma Asthma Hx Other Medical cervical radicu lopathy; Comments: JOSH 05/07/2016 - Family History Medical History Relation Name Comments Diabetes type II Mother Diabetes me llitus type 2; Fibromyalgia Mother Lupus Mother Neuropathy Mother Alcohol abuse Other 1 grandfather Family history of Alcoholism; Cancer Other 1 grandfather Heart disease Other 2 Family history of Heart disease; Mental illness Other 3 Family histor y of Mental illness; Diabetes Other 4 Family history of diabetes; Relation Name Status Comments Mother Other 1 grandfather Other Other 2 Other 3 Other 4 Social History Tobacco Use Types Packs/Day Years [...] on file Legal Sex Female 1:47 AM FINAL TOUCH UP PAINTER Gender Identity Not on file Sexual Orientation Not on file Obstetrics History Last Filed Vital Signs Vital Sign Reading Time Taken Comments Blood Pressure 110/64 09/10/2021 1:02 PM CDT Pulse 102 09/10/2021 1:02 PM CDT Temperature 36.7 ??C (98 ??F) 05/24/2021 8:56 AM FINAL TOUCH UP PAINTER Respiratory Rate 16 09/10/2021 1:02 PM CDT Oxygen Saturation 97% 09/10/2021 1:02 PM CDT Inhaled Oxygen Concentration - - Weight 125.1 kg (275 lb 12.8 oz) 09/10/2021 1:02 PM CDT Height 168.5 cm (5' 6.34 ) 09/10/2021 1:02 PM CD T Body Mass Index 44.06 09/10/2021 1:02 PM CDT Plan of Treatment Health Maintenance Due Date Last Done Comments Cervical Cancer Screening 1998 Hepatitis C Screening 1998 DTaP/Tdap/Td Vaccine (7 - Td or Tdap) 10/26/2020 10/26/2010, 09/24/2004, 09/24/2004, Additional history exists Regular Well Visit/Exam 18-64 03/05/2022 03/05/2021 Depression Screening 09/10/2022 09/10/2021, 05/24/2021, 03/05/2021, Additional history exists Covid-19 Vaccine (3 2023-2 5 season) 2023 09/15/2020, 08/25/2020 Influenza Vaccine (#1) 2023 9, 02/06/2015, 01/06/2009 Pneumococcal vaccine <65 Completed 003, 02/13/2000, 12/27/1999 HPV Vaccines Completed 11/08/2011, 12/07, 10/26/2010 Varicella Vaccines Completed 02/18/2014, 0 12/10/2013, 12/27/1999 Insurance [facility] CHOICE PLUS [facility] HMO/PPO Address: [address] [facility] Address: [facility] [address] [place] [address] [facility] CHOICE PLUS [facility] HMO/PPO [place] [address] [address] [address] [employer] Care Teams Photoflash Powder Mixer Relationship Specialty Start Date End Date Jovanny Montenegro MD [address] [place] [address] PCP - General Family Medicine 03/05/21
--- OUTSIDE RECORDS SUMMARY | 2024-04-30 04:18 | XMS_ITS | Data Portability ---
Author Organization [facility] Address [address] [place] [address] Care Team Providers Care Renal Dietitian Name Role Phone INDU YUSUF Primary Care Provider [phone] Assessment No assessment recorded. Plan of Treatment Reminders Order Date Submit Date Provider Last Modified By Organization Details Last Modified Time Details Appointments U/S OB BPP 2024 10:00A M ULTRASOUND Not available Not available Not available NST 2024 10:30A M NST SCHEDULE Not available Not available Not available NST 2024 09:30A M NST SCHEDULE Not available Not available Not available OB ROUTINE 2024 10:00A M BIPIN RODRÍGUEZ MD Not available Not available Not available U/S OB BPP 2024 09:30A M ULTRASOUND Not available Not available Not available NST 2024 10:00A M NST SCHEDULE Not available Not available Not available OB ROUTINE 2024 10:30A M BIPIN RODRÍGUEZ MD Not available Not available Not available NST 2024 09:30A M NST SCHEDULE Not available Not available Not available U/S OB BPP 2024 09:30A M ULTRASOUND Not available Not available Not available NST 2024 10:00A M NST SCHEDULE Not available Not available Not available OB ROUTINE 2024 10:30A M BIPIN RODRÍGUEZ MD Not available Not available Not available NST 2024 09:30A M NST SCHEDULE Not available Not available Not available U/S OB BPP 2024 09:00A M ULTRASOUND Not available Not available Not available NST 2024 09:30A M NST SCHEDULE Not available Not available Not available OB ROUTINE 2024 10:00A M BIPIN RODRÍGUEZ MD Not available Not available Not available NST 2024 09:30A M NST SCHEDULE Not available Not available Not available U/S OB BPP 2024 09:30A M ULTRASOUND Not available Not available Not available NST 2024 10:00A M NST SCHEDULE Not available Not available Not available OB ROUTINE 2024 10:30A M Sheila THORNTON MD Not available Not available Not available NST 2024 09:30A M NST SCHEDULE Not available Not available Not available NST 2024 09:30A M NST SCHEDULE Not available Not available Not available U/S OB BPP 2024 10:00A M ULTRASOUND Not available Not available Not available OB ROUTINE 2024 10:30A M BIPIN RODRÍGUEZ MD Not available Not available Not available NST 2024 09:30A M NST SCHEDULE Not available Not available Not available U/S OB BPP 2024 09:00A M ULTRASOUND Not available Not available Not available NST 2024 09:30A M NST SCHEDULE Not available Not available Not available OB ROUTINE 2024 10:15A M BIPIN RODRÍGUEZ MD Not available Not available Not available Lab None recorde d. Referral None recorde d. Procedures None recorde d. Surgeries None recorde d. Imaging non-str ess test 2024 025 [email or web address] [address], [address], [place], [address], 04/28/2024 02:43:07 US, obstetr ic, biophys ical profile + non-str ess test 2024 025 [email or web address] [address], [address], [place], [address], 04/27/2024 20:36:37 non-str ess test 2024 025 [email or web address] [place], [address], [address], [place], [address], 04/29/2024 15:13:41 Medication Orders None recorde d. Patient TargetsNo targets recorded. Patient InstructionsNo instructions recorded. Reason for Referral None Reported. Results Created Date Observation Date Name Description Value Unit Range Abnormal Flag Note LastModifiedBy Organization Detail LastModifiedTime 03/29/20 24 03/29/2024 HEMAT OCRIT (HCT) HCT 37.6 % (based on docume nted legal sex) 34.0-4 5.0 Not Available [facility] (Lab) [address] [facility] [facility], [place], [address], 03/30/2024 11:49:17 03/29/20 24 03/29/2024 HEMOG LOBIN (HGB) HGB 11.7 g/dL (based on docume nted legal sex) 11.6-1 5.4 Not Available [facility] (Lab) [address] [facility] [facility], [place], [address], 03/30/2024 11:49:18 03/29/20 24 03/29/2024 GTT - GESTA LUKE Jane Darling, ACOG OB glucose, 1 hour screen 186 mg/dL 70-135 high Not Available [facility] (Lab) [address] [place], [address], 03/30/2024 11:49:18 03/29/20 24 03/29/2024 HIV 1/2 ANTIG EN/AN TIBOD Y, REFLE X CONFI RMATI ON HIV antigen/anti body Nonrea ctive nonrea ctive HIV-1 antig en and HIV-1 /HIV- 2 antib odies were not detec loc. No labor atory evide nce of HIV infec tion. Not Available [facility] (Lab) [address] [facility] [facility], [place], [address], 03/30/2024 11:49:18 03/29/20 24 03/29/2024 RPR SCREE N, REFLE X TITER /CONF IRMAT ION RPR screen Nonrea ctive nonrea ctive Not Available [facility] (Lab) [address] [facility] [facility], [place], [address], 03/30/2024 11:49:18 04/08/19 25 04/08/2024 GTT - GESTA LUKE L, 3 HOUR, ACOG glucose, fasting acog 119 mg/dL 70-94 high Not Available [facility] (Lab) [address] [facility] [facility], [place], [address], 04/09/2024 04:22:23 04/08/19 25 04/08/2024 GTT - GESTA LUKE L, 3 HOUR, ACOG glucose, 1 hour acog 216 mg/dL 70-179 high Not Available [facility] (Lab) [address] [facility] [facility], [place], [address], 04/09/2024 04:22:23 04/08/19 25 04/08/2024 GTT - GESTA LUKE L, 3 HOUR, ACOG glucose, 2 hour acog 168 mg/dL 70-154 high Not Available [facility] (Lab) [address] [place], [address], 04/09/2024 04:22:23 04/08/19 25 04/08/2024 GTT - GESTA LUKE L, 3 HOUR, ACOG glucose, 3 hour acog 153 mg/dL 70-139 high Not Available [facility] (Lab) [address] [place], [address], 04/09/2024 04:22:23 03/24/20 24 03/24/2024 US, jessica royalo w-up No observ ation record ed. [email or web address] [facility] [address], [place], [address], 03/25/2024 15:07:53 04/08/19 25 04/08/2024 US, obste tric, follo w-up No observ ation record ed. [address] [facility] [place] [address] [facility], [place], [address], 04/21/2024 11:05:34 04/08/19 25 04/08/2024 imagi ng/di agnos tic resul t No observ ation record ed. [address], [place], [address], 04/09/2024 10:30:29 04/22/19 25 04/22/2024 US, obste tric, follo w-up No observ ation record ed. [address] [facility] [place] [address] [facility], [place], [address], 04/23/2024 20:51:38 04/22/19 25 04/22/2024 US, obste tric, follo w-up No observ ation record ed. [address] [facility] [place] [address], [place], [address], 04/23/2024 09:57:54 04/22/19 25 04/22/2024 US, obste tric, follo w-up No observ ation record ed. [address] [facility] [place] [address] [facility], [place], [address], 04/23/2024 20:53:23 04/22/19 25 04/22/2024 US, doppl er, echoc ardio gram, follo w-up No observ ation record ed. [address] [facility] [place] [address] [facility], [place], [address], 04/27/2024 07:30:58 04/22/19 25 04/22/2024 US, obste tric, follo w-up No observ ation record ed. [address] [facility] [place] [address], [place], [address], 04/23/2024 09:59:17 04/22/19 25 04/22/2024 US, obste tric, follo w-up No observ ation record ed. [address] [facility] [address], [place], [address], 04/23/2024 09:58:52 04/22/19 25 04/22/2024 US, obste tric, follo w-up No observ ation record ed. [address] [facility], [place], [address], 04/23/2024 09:58:38 04/23/19 25 04/23/2024 imagi ng/di agnos tic resul t No observ ation record ed. [address] [facility], [place], [address], 04/25/2024 10:48:45 04/27/19 25 04/27/2024 US, obste tric, bioph ysica l profi le + non-s tress test No observ ation record ed. [facility] [address], [place], [address], 04/27/2024 17:41:59 04/27/19 25 04/27/2024 US, obste tric, bioph ysica l profi le + non-s tress test No observ ation record ed. [email or web address] [address], [place], [address], 04/27/2024 21:32:25 04/27/19 25 04/27/2024 non-s tress test No observ ation record ed. [place] [address], [place], [address], 04/27/2024 14:30:50 04/29/19 25 04/29/2024 non-s tress test No observ ation record ed. [place] [id number] [facility] [address] [facility], [place], [address], 04/29/2024 14:47:44 04/29/19 25 04/29/2024 non-s tress test No observ ation record ed. [email or web address] [place] [address], [place], [address], 04/29/2024 14:54:57 Result Notes None recorded. Problems Name Problem SNOMED Code Status Onset Date Resolution Date Notes Provider Name and Address Organization Details Recorded Time 37231891 Active 2023 Carmela Ryder [facility], [facility] 4 12:23:09 Body mass index 40+ - severely obese 021565004 Active testing @ 34wks Odilia Peña [facility] 4 15:01:19 Body mass index 40+ - severely obese 700233658 Active testing @ 34wks Odilia Peña [facility], [facility] 4 15:01:19 Alpha thalassemi a 10395649 Active 2023 silent carrier, low risk Lisbeth Wise [facility], [facility] 4 10:09:47 Gestationa l diabetes mellitus 16926605 Active BS QID and serial growth pt scheduled [facility] 04/22/24 Lantus 20u @ HS DT referral faxed 04/16 [facility] 04/22 Appt Odilia Peña [facility], [facility] 5 15:54:42 Gestationa l diabetes mellitus 62789388 Active BS QID and serial growth pt scheduled [facility] 04/22/24 Lantus 20u @ HS DT referral faxed 04/16 [facility] 04/22 Appt Odilia Peña [facility], [facility] 5 15:54:42 Pre-eclamp tonya 399427210 Active LD labs 0.75 2xwkly testing Odilia roldan [facility] 5 18:10:41 Pre-eclamp tonya 813468389 Active LD labs 0.75 2xwkly testing Odilia roldan, [facility] 5 18:10:41 Problem Notes None recorded. Procedures Surgical History Date Name Laterality Status Provider Name and Address Organization Details Recorded Time 3 Colposcopy completed [facility] 10/29/2023 12:39:09 3 Date of Last Pap Smear completed [facility] 10/29/2023 12:04:48 3 Colposcopy completed [facility] 12/03/2023 12:46:10 Imaging Results Imaging Date Name Status LastModified by Organiz ation Details LastModified Time 03/24/2024 US, obstetric, follow-up completed [address], [address], 03/25/2024 15:07:53 04/08/2024 US, obstetric, follow-up completed [address], [address], 04/21/2024 11:05:34 04/08/2024 imaging/diagnos tic result completed [address], [address], 04/09/2024 10:30:29 04/22/2024 US, obstetric, follow-up completed [address], [address], 04/23/2024 20:51:38 04/22/2024 US, obstetric, follow-up completed [email or web address] [facility] [address], [place], [address], 04/23/2024 09:57:54 04/22/2024 US, obstetric, follow-up completed [address] [facility], [place], [address], 04/23/2024 20:53:23 04/22/2024 US, doppler, echocardiogram, follow-up completed [address] [place], [address], 04/27/2024 07:30:58 04/22/2024 US, obstetric, follow-up completed [address], [place], [address], 04/23/2024 09:59:17 04/22/2024 US, obstetric, follow-up completed [address], [place], [address], 04/23/2024 09:58:52 04/22/2024 US, obstetric, follow-up completed [address], [address], 04/23/2024 09:58:38 04/23/2024 imaging/diagnos tic result completed [facility] [address], [place], [address], 04/25/2024 10:48:45 04/27/2024 US, obstetric, biophysical profile + non-stress test completed [facility] [address], [place], [address], 04/27/2024 17:41:59 04/27/2024 US, obstetric, biophysical profile + non-stress test completed [email or web address] [address], [place], [address], 04/27/2024 21:32:25 04/27/2024 non-stress test completed [place] [address], [place], [address], 04/27/2024 14:30:50 04/29/2024 non-stress test completed [address], [place], [address], 04/29/2024 14:47:44 04/29/2024 non-stress test completed [email or web address] [place] [address], [place], [address], 04/29/2024 14:54:57 Procedure Notes None recorded. Medical Equipment None Reported. Allergies No known drug allergies Medications Name Sig Start Date Stop Date Status Note LastModified by Organization Details LastModified Time azithromyci n 250 mg tablet TAKE 1 TABLET BY MOUTH EVERY DAY FOR 4 DAYS 02/01 completed Not Available Not Available Not Available Lantus U-100 Insulin 100 unit/mL subcutaneou s solution Inject 10 units every day by subcutane ous route at bedtime. active Not Available Not Available No t Available metronidazo le 500 mg tablet TAKE 1 TABLET BY MOUTH TWICE DAILY 10/28 completed Not Available Not Available Not Available albuterol sulfate HFA 90 mcg/actuati on aerosol inhaler active Not Available Not Available Not Available metoclopram lima 10 mg tablet TAKE 1 TABLET BY MOUTH FOUR TIMES A DAY active Not Available Not Available No t Available amoxicillin 875 mg-potassiu m clavulanate 125 mg tablet TAKE 1 TABLET BY MOUTH EVERY 12 HOURS 04/27 completed Not Available Not Available Not Available nitrofurant oin monohydrate /macrocryst als 100 mg capsule TAKE 1 CAPSULE BY MOUTH EVERY 12 HOURS FOR 5 DAYS 01/01 completed Not Available Not Available Not Available OneTouch Verio test strips active Not Available Not Available Not Available Vitamin 27 mg iron-800 mcg tablet 1 tablet every day by oral route. 2023 active Not Available Not Available Not Avai lable OneTouch Verio Flex Meter TEST BLOOD SUGARS 4 TIMES A DAY active Not Available Not Available No t Available BD Veo Insulin Syringe Ultra-Fine 0.3 mL 31 gauge x 15/64 active Not Available Not Available Not Available OneTouch Delica Plus Lancet 33 gauge TEST BLOOD SUGARS 4 TIMES A DAY active Not Available Not Available No t Available Vitals Date Recorded Body weight Systolic blood pressure Diastolic blood pressure Provider Name and Address Organization Details Last Updated DateTime 04/16/2024 800930.188 92 g 143 mm[Hg] 87 mm[Hg] Jaci Dorian [facility] 04/16/2024 14:48:27 Date Recorded Body height Body mass index (BMI) Body weight Systolic blood pressure Diastolic blood pressure Provider Name and Address Organization Details Last Updated DateTime 04/27/2024 165.1 cm 52.3 kg/m2 031672 g 152 mm[Hg] 92 mm[Hg] [facility] 12:13:27 Date Recorded Body height Body mass index (BMI) Body weight Systolic blood pressure Diastolic blood pressure Systolic blood pressure Diastolic blood pressure Provider Name and Address Organization Details Last Updated DateTime 165.1 cm 52.6 kg/m2 249041. 19 g 157 mm[Hg] 99 mm[Hg] 160 mm[Hg] 98 mm[Hg] [facility] 14:54:08 Social History Question Answer Notes LastModified by Organizat ion Details LastModified Time What Is Your Level Of Alcohol Consumption? Occasional Information not available 12/03/2023 How Many Years Have You Consumed Alcohol? 3 Information not available 12/03/2023 Are You Blind Or Do You Have Difficulty Seeing? Yes Information not available 12/03/2023 What Is Your Level Of Caffeine Consumption? Heavy Information not available 12/03/2023 How Much Tobacco Do You Chew? None Information not available 12/03/2023 In The 14 Days Before Symptom Onset, Have You Had Close Contact With A Laboratory-confir med COVID-19 While That Case Was Ill? No Information not available 12/03/2023 In The 14 Days Before Symptom Onset, Have You Had Close Contact With A Person Who Is Under Investigation For COVID-19 While That Person Was Ill? No Information not available 12/03/2023 Have You Been To An Area Known To Be High Risk For COVID-19? No Information not available 12/03/2023 Are You Deaf Or Do You Have Serious Difficulty Hearing? No Information not available 12/03/2023 What Type Of Diet Are You Following? REGULAR Information not available 12/03/2023 What Is The Highest Grade Or Level Of School You Have Completed Or The Highest Degree You Have Received? 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 No Information not available 12/03/2023 Do You Use Protection During Sex? No Information not available 12/03/2023 Do You Use Your Seat Belt Or Car Seat Routinely? Yes Information not available 12/03/2023 Do You Have Smoke And Carbon Monoxide Detectors In Your Home? Yes Information not available 12/03/2023 How Much Tobacco Do You Smoke? No Information not available 12/03/2023 Do You Feel Stressed (tense, Restless, Nervous, Or Anxious, Or Unable To Sleep At Night)? [id number] Information not available 12/03/2023 Do You Use Any Illicit Or Recreational Drugs? Yes Information not available 12/03/2023 Do You Use Sunscreen Routinely? Yes Information not available 12/03/2023 Have You Used IV Drugs? No Information not available 12/03/2023 Sex: Unknown Functional Status Question Answer Note LastModified by Organizat ion Details LastModified Time Are you able to walk? YESWOREST Information not available 12/03/2023 What is your exercise level? Occasional Information not available 12/03/2023 Mental Status None recorded. Family History Relationship Description Onset Age of this Age Resolved Age Notes LastModified by Organization Details LastModified Time Mother Diabetes mellitus [email or web address] Not available 2023 12:38:27 Maternal Grandfather Diabetes mellitus [email or web address] Not available 08/28/ 2024 12:45:55 Maternal Grandmother Malignant neoplastic disease [email or web address] Not available 2023 12:45:55 Medical History Condition Response Allergies (Food, seasonal, environmental ) N Other N Drug/Latex Allergies/Reactions N Blood Transfusion N Breast Cancer N Dermatologic Disorders N Lung Disease N Defects or Inherited Disease N Breast Problem N Gestational Diabetes N Hematologic disorders N Anesthesia Complications N History of STI N Deep Vein Thrombosis N Polycystic ovary syndrome N Anxiety Disorder N Autoimmune disease N Arthritis N Polyps N Infertility N Acid Reflux (GERD) N History of abnormal pap N Cancer N Varicosities N Stroke N Neurologic/Epilepsy N Endometriosis N High Cholesterol N Fibromyalgia N Headaches N Kidney Disease N Heart Problems N Thyroid Problems N Kidney or Bladder Problems N GI Problems N Eating Disorder N Anemia N Art (IVF or FET) N Psychiatric Illness N Ovarian Cancer N Diabetes N Pulmonary (TB, Asthma) N Hepatitis/Liver Disease N No Past Medical History N Eczema N Urinary Tract Infection N Abuse/Domestic Violence N Asthma N Trauma/Violence N Depression/ depression N Heart Disease N Pre-Eclampsia N Hypertension N Osteoporosis N Thrombophilias N Gynecological History Statement/Question Response Date of LMP 07/16/2023 On BCP's at Conception? N N Was last menstrual period normal Y STIs/STDs N HPV Vaccine Y Colposcopy 06/05/2022 Duration of Flow (days) 7 Current Control Method None Frequency of Cycle (Q days) 25 Sexually Active? Y None Age of first menstrual cycle 10 Date of Last Pap Smear 11/25/2022 Sexual Problems? N Desired Control Method N/A LMP Unknown N Obstetrics History GPAL:G 1 P 0 0 0 0 Past Encounters Encounter ID Performer Location Encounter Start Date Encounter Closed Date Diagnosis/Indication Diagnosis SNOMED-CT Code Diagnosis ICD10 Code Diagnosis Note Kate Greenwood [place] [address] [address] 10/29/2023 11:35:12 10/29/2023 12:27:19 Uterine size for dates discrepancy 816813305 O26.841 Z3A.01 BIPIN RODRÍGUEZ MD [place] [address] [address] 10/29/2023 11:39:02 10/29/2023 13:09:43 Nausea and vomiting 84196340 R11.2 test positive 581091601 Z32.01 1. Exam today within normal limits.2. Ultrasound today confirms GA and viability. EDC . GC/Clamydi a testing done: will f/u as indicated. 4. ACOG guidelines and plan of care for reviewed with patient. All questions answered.5 . Return to office at 12 weeks for new OB visit6. Will need new OB labs at next visit.7. [facility] screening: [facility]. [id number] [facility] [address],[place] [address] 12/03/2023 11:47:08 12/03/2023 12:45:41 screening 616598004 Z36.82 Z3A.12 [id number] [facility] [address],[place] [address] 12/03/2023 11:49:53 12/03/2023 13:47:17 Routine care 622961453 Z34.91 screening 2437 61722 Z36.0 [id number] BIPIN RODRÍGUEZ MD [place] [address],[place] [address] 01/02/2024 12:02:11 01/02/2024 13:05:31 Routine care 444079761 Z34.91 - continue PNV [id number] Kate Greenwood [place] [address],[place] [address] 02/02/2024 11:24:42 02/02/2024 12:43:33 screening for malformation 819140207 Z36.3 Z3A.20 [id number] BIPIN RODRÍGUEZ MD [place] [address],[place] [address] 02/02/2024 11:25:05 02/02/2024 13:57:19 Body mass index 40+ - severely obese 347263545 Z68.43 - testing at 34 weeks Gestation period, 20 weeks 03576083 Z3A.20 - continue PNV [id number] BIPIN RODRÍGUEZ MD [place] [address],[place] [address] 03/01/2024 11:58:10 03/01/2024 13:57:27 Maternal obesity complicating , childbirth and the puerperium, antepartum 3135280988 07 O99.212 Gestation period, 24 weeks 425201554 Z3A.24 [id number] Kate Greenwood [place] [address],[place] [address] 03/01/2024 11:58:57 03/01/2024 12:38:51 screening 048077107 Z36.2 O99.212 Z3A.24 [id number] BIPIN RODRÍGUEZ MD [place] [address],[place] [address] 03/29/2024 11:18:45 03/29/2024 11:56:51 Maternal obesity complicating , childbirth and the puerperium, antepartum 7315632975 07 O99.212 - plan for testing at 34 weeks Gestation period, 28 weeks 38156991 Z3A.28 [id number] BIPIN RODRÍGUEZ MD [place] [address],[place] [address] 04/16/2024 14:39:31 04/19/2024 18:24:44 Gestational diabetes mellitus 14618438 O24.410 Maternal o besity complicating , childbirth and the puerperium, antepartum 5002780371 07 O99.212 - plan for testing at 34 weeks Gestation period, 31 weeks 51268079 Z3A.31 [id number] [facility] [address],[place] [address] 04/27/2024 10:35:14 04/27/2024 11:06:01 Gestational diabetes mellitus 36906094 O24.414 O99.210 O14.93 Z3A.33 [id number] Amber Barrientos [place] [address],[place] [address] 04/27/2024 10:35:32 04/27/2024 14:34:56 Maternal obesity complicating , childbirth and the puerperium, antepartum 0059742288 07 O99.212 [id number] BIPIN RODRÍGUEZ MD [place] [address],[place] [address] 04/27/2024 10:36:48 04/27/2024 14:34:49 Mild pre-eclampsia 54685815 O14.03 - twice weekly testing- weekly labs- 37 week induction Gestationa l diabetes mellitus class A2 63314942 O24.414 - just started lantus 10u- continue to monitor glucose closely Maternal o besity complicating , childbirth and the puerperium, antepartum 9096196200 07 O99.212 Gestation period, 33 weeks 42778143 Z3A.33 [id number] Amber Iliana [place] [address] [address] 04/29/2024 09:58:29 04/29/2024 15:13:41 Maternal obesity complicating , childbirth and the puerperium, antepartum 4597347095 07 O99.212 Health Concerns Section Related Observation LastModified by Organization Detai ls LastModified Time None Recorded Concern Status LastModified by Organization Details LastModified Time None Recorded Advance Directives Directive None Recorded Payers Encounter Date Sequence Insurance Name Policy Number Policy Li Covered Member ID Li Member ID Guarantor Name 04/16/[address] [facility] [id number] Rochelle Louise [id number] Rochelle Louise 04/16/2024 1 [employer] - CHOICE (POS II) [id number] Rochelle Louise [id number] Rochelle Louise 04/27/2024 1 [employer] - CHOICE (POS II) [id number] Rochelle Louise [id number] Rochelle Louise 04/27/2024 1 [employer] - CHOICE (POS II) [id number] Rochelle Louise [id number] Rochelle Louise 04/27/2024 1 [employer] - CHOICE (POS II) [id number] Rochelle Louise [id number] Rochelle Louise 04/29/2024 1 [employer] - CHOICE (POS II) [id number] Rochelle Louise [id number] Rochelle Louise OBGyn Episode Ob Episode Information Episode Created Date Number of Fetuses Patient Bloodtype Patient rh Status Prepregnancy Weight lbs Domestic Partner Domestic Partner Phone Father Name Case Reviewer Status 10/29/19 24 1 A Positive OPEN Fetus Data First Name Last Name Admitted to NICU Weight (g) Sex Living Outcome Pediatric Complications Fetus ID Race Codes Race Delivery Type [id number] Problems Problem Notes UDS +THCComplete anatomy - [facility] 04/08 & 04/22/24 USincomplete cardiac views MF echo referral faxed 04/16- echo in chart (recommend pediatric cardiolgy [facility] arrange ) Problem Name Start Date End Date Resolution Snomed Code Not e Body mass index 40+ - severely obese [id number] dereje ting @ 34wks Alpha thalassemia 12/18/2023 [id number] s ilent carrier, low risk Pre-eclampsia [id number] LD lab s 0.752xwkly testing Gestational diabetes mellitus [id number] BS QID and seri al growth pt [facility] 04/22/24Lantus 20u @ HS DT referral faxed 04/16 [facility] 04/22 Appt Adan Calculation Initial Adan Date Initial Exam Date Initial Exam Provider Initial Ultrasound Date Last Menstrual Period Date Ultra Sound Weeks Gestation 06/15/2024 10/29/2023 10/29/2023 07/16/2023 7 Eighteen To Twenty Week Adan Update Ultra Sound Date Fundal Height At Umbil Quickening Date Ultra Sound Latest Weeks Gestation Final Adan Confirmed By Final Adan Confirmed Date Final Adan Date Ultra Sound Latest Days Gestation 0 06/16/19 25 0 Pre- Flowsheet Flowsheet Date 10/29/2023 March Score Blood Edema Fundus Height Fundus Units Glucose Ketones Leukocytes Nitrite Labor Signs Protein Cervic Dilation Cervic Effacement Cervic Station Type Weight in lbs Pre/Post Dialysis Refused Weight 289.486019539092 BP Diastolic BP Location Tested BP Systolic BP Type 80 125 Fetus Heart Rate Present Fetus Movement Comments Flowsheet Date 12/03/2023 March Score Blood Edema Fundus Height Fundus Units Glucose Ketones Leukocytes Nitrite Labor Signs Protein Cervic Dilation Cervic Effacement Cervic Station Type Weight in lbs Pre/Post Dialysis Refused BP Diastolic BP Location Tested BP Systolic BP Type Fetus Heart Rate Present Fetus Movement Comments Flowsheet Date 12/03/2023 March Score Blood Edema Fundus Height Fundus Units Glucose Ketones Leukocytes Nitrite Labor Signs Protein Cervic Dilation Cervic Effacement Cervic Station Type Weight in lbs Pre/Post Dialysis Refused Weight 291.830568299508 BP Diastolic BP Location Tested BP Systolic BP Type 84 138 Fetus Heart Rate Present Fetus Movement Comments Patient presents to [facility] care. Nausea much improved! Has not needed meds in the past two weeks. No cramping. Small amount of spotting that has resolved. Otherwise doing well. NT/NB wnl today, desires NIPT. Will draw with new OB labs. PMH/PSH otherwise uncomplicated. RTC 4 weeks. Flowsheet Date 01/02/2024 March Score Blood Edema Fundus Height Fundus Units Glucose Ketones Leukocytes Nitrite Labor Signs Protein Cervic Dilation Cervic Effacement Cervic Station neg none none trace Type Weight in lbs Pre/Post Dialysis Refused 297.863882018489 BP Diastolic BP Location Tested BP Systolic BP Type 84 L arm 135 sitting Fetus Heart Rate Present Fetus Movement A No Comments Doing well, no movemen t. No cramping or bleeding. Will run ZULEAM for UTI. LR female NIPT. 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 Other OB labs wnl. Discussed anatomy US for next visit. RTC 4 weeks. Flowsheet Date 02/02/2024 March Score Blood Edema Fundus Height Fundus Units Glucose Ketones Leukocytes Nitrite Labor Signs Protein Cervic Dilation Cervic Effacement Cervic Station Type Weight in lbs Pre/Post Dialysis Refused BP Diastolic BP Location Tested BP Systolic BP Type Fetus Heart Rate Present Fetus Movement Comments Flowsheet Date 02/02/2024 March Score Blood Edema Fundus Height Fundus Units Glucose Ketones Leukocytes Nitrite Labor Signs Protein Cervic Dilation Cervic Effacement Cervic Station neg none none trace Type Weight in lbs Pre/Post Dialysis Refused 308.508050841116 BP Diastolic BP Location Tested BP Systolic BP Type 85 L arm 137 sitting Fetus Heart Rate Present A Present Fetus Movement A Yes Comments Good movement. No cram ping or bleeding. Was seen in the ER 2 weeks ago and diagnosed with pneumonia, received abx and is feeling better. Anatomy today, EFW 41%, incomplete due to heart views. Will repeat in 4 weeks, discussed referral to [facility] if unable to clear at next visit. RTC 4 weeks. Flowsheet Date 03/01/2024 March Score Blood Edema Fundus Height Fundus Units Glucose Ketones Leukocytes Nitrite Labor Signs Protein Cervic Dilation Cervic Effacement Cervic Station Type Weight in lbs Pre/Post Dialysis Refused BP Diastolic BP Location Tested BP Systolic BP Type Fetus Heart Rate Present Fetus Movement Comments Flowsheet Date 03/01/2024 March Score Blood Edema Fundus Height Fundus Units Glucose Ketones Leukocytes Nitrite Labor Signs Protein Cervic Dilation Cervic Effacement Cervic Station neg none none trace Type Weight in lbs Pre/Post Dialysis Refused 315.038004032667 BP Diastolic BP Location Tested BP Systolic BP Type 74 L arm 136 sitting Fetus Heart Rate Present A Present Fetus Movement A Yes Comments Patient c/o of slight swelli ng in feet. No bleeding or cramping. Good movement. EFW 59%, ESTHER normal. LVOT and AA seen, needs RVOT and DA still. Will send to [facility] for completion of anatomy US. Discussed gct and labs for next visit. RTC 4 weeks. Flowsheet Date 03/29/2024 March Score Blood Edema Fundus Height Fundus Units Glucose Ketones Leukocytes Nitrite Labor Signs Protein Cervic Dilation Cervic Effacement Cervic Station neg none Type Weight in lbs Pre/Post Dialysis Refused Weight 311.167491050275 BP Diastolic BP Location Tested BP Systolic BP Type 84 L arm 132 sitting Fetus Heart Rate Present A 150 Fetus Movement A Yes Comments Good movement. No cram ping or bleeding. Saw [facility] for completion of anatomy, heart views still suboptimal. Repeat US scheduled 1/2 with [facility]. GCT and labs today. RTC 2 weeks. Need to discuss tdap at next appointment. Flowsheet Date 04/16/2024 March Score Blood Edema Fundus Height Fundus Units Glucose Ketones Leukocytes Nitrite Labor Signs Protein Cervic Dilation Cervic Effacement Cervic Station Type Weight in lbs Pre/Post Dialysis Refused 316.199792338162 BP Diastolic BP Location Tested BP Systolic BP Type 87 L arm 143 sitting Fetus Heart Rate Present A 145 Fetus Movement A Yes Comments Good movement. No cram ping or bleeding. Diagnosed with GDM, started tracking BG yesterday, PP wnl, fasting elevated x1 (125). Discussed diet, order sent for diet teaching. Discussed parameters for starting insulin. Also discussed incomplete anatomy at [facility], recommend echo, order sent. Will start testing at 34 weeks due to obesity. RTC 2 weeks. Flowsheet Date 04/27/2024 March Score Blood Edema Fundus Height Fundus Units Glucose Ketones Leukocytes Nitrite Labor Signs Protein Cervic Dilation Cervic Effacement Cervic Station Type Weight in lbs Pre/Post Dialysis Refused BP Diastolic BP Location Tested BP Systolic BP Type Fetus Heart Rate Present Fetus Movement Comments Flowsheet Date 04/27/2024 March Score Blood Edema Fundus Height Fundus Units Glucose Ketones Leukocytes Nitrite Labor Signs Protein Cervic Dilation Cervic Effacement Cervic Station Type Weight in lbs Pre/Post Dialysis Refused BP Diastolic BP Location Tested BP Systolic BP Type Fetus Heart Rate Present Fetus Movement Comments Flowsheet Date 04/27/2024 March Score Blood Edema Fundus Height Fundus Units Glucose Ketones Leukocytes Nitrite Labor Signs Protein Cervic Dilation Cervic Effacement Cervic Station neg none Type Weight in lbs Pre/Post Dialysis Refused Weight 314.694622008845 BP Diastolic BP Location Tested BP Systolic BP Type 92 L arm 152 sitting Fetus Heart Rate Present A 140 Fetus Movement A Yes Comments Good movement. No cram ping or bleeding. Fasting glucose still elevated, only started insulin yesterday. Will recheck at next monitoring appointment. Discussed diagnosis of preeclampsia without severe features based on BPs and proteinuria. Discussed recommendation for twice weekly monitoring and weekly labs, as well as 37 week delivery. Discussed severe features and warning symptoms. Discussed delivery before 37 weeks if severe features present. Patient voices understanding. BPP 01/14. Continue twice weekly monitoring. Flowsheet Date 04/29/2024 March Score Blood Edema Fundus Height Fundus Units Glucose Ketones Leukocytes Nitrite Labor Signs Protein Cervic Dilation Cervic Effacement Cervic Station Type Weight in lbs Pre/Post Dialysis Refused Weight 316.588585083670 BP Diastolic BP Location Tested BP Systolic BP Type 99 L arm 157 sitting 98 L arm 160 sitting Fetus Heart Rate Present Fetus Movement Comments Menstrual History Last Menstrual Date Menses Monthly On Bcp Conception Prior Menses Frequency Hcg Plus Date Menarche Onset Age 0407/16/2023 Delivery Information Delivery Date Delivery Type Labor Anesthesia Weeks Gestation Incision Type Labor Labor Length Hrs Delivered By Post Complications Tubal Sterilization Discharge Date Comments Discharge Information Feeding Method Contraceptive Method Maternal HG B and HCT Levels
== END 2024-04-29 11:10 ==
LOC: ANHOBOP 10:19 → ANHOBPP 10:21
PROVIDERS: Visit Provider Obstetrics & Gynecology
DX: O13.9 Gestational [pregnancy-induced] hypertension without significant proteinuria, unspecified trimester (principal); Z3A.00 Weeks of gestation of pregnancy not specified
CPT/HCPCS: 36415; 59025; 80053; 81001; 82570; 84156; 84550; 85025; 99199

== ENCOUNTER 2024-05-06 08:15 | Outpatient (RCR) | payer OTHER, MEDICAID, SELFPAY | END 2024-07-12 10:13 | disposition home or self-care (01) | LOC: ANHDMC 08:15 | PROVIDERS: Visit Provider Obstetrics & Gynecology | DX: O24.410 Gestational diabetes mellitus in pregnancy, diet controlled (principal); Z71.3 Dietary counseling and surveillance | CPT/HCPCS: G0108 ==

== ENCOUNTER 2024-05-17 11:41 | Outpatient (RCR) | payer OTHER, MEDICAID, SELFPAY ==
--- NOTE | ~2024-05-17 | US_ITS ---
EXAMINATION: US OB BPP wo non-stress DATE: 05/17/2024 13:41 [employer] IN[employer] INDICATION: Nonreactive tracing in office TECHNIQUE: Real-time transabdominal obstetric ultrasound. FINDINGS: There is a single intrauterine gestation in vertex presentation. The placenta is posterior without p lacenta previa. cardiac activity and movement is noted with a heart rate of 146 beats per minute. Biophysical profile: breathin of 2 movement: 2 of 2 tone: 2 of 2 Amniotic fluid pocket: 2 of 2 Total score: 8 of 8 IMPRESSION: 1. Single intrauterine gestation in vertex presentation. 2: Total biophysical profile score of 8 out of 8. Reviewed, dictated and finalized at location A. [employer] ARTIST IN[employer]CTOR
[2024-05-17 13:45] VITALS: BP 154/95; PULSE 91
== END 2024-08-15 23:59 | disposition home or self-care (01) ==
LOC: ANHOBOP 11:41
PROVIDERS: Visit Provider Obstetrics & Gynecology
DX: O36.8330 Maternal care for abnormalities of the fetal heart rate or rhythm, third trimester, not applicable or unspecified (principal); O26.899 Other specified pregnancy related conditions, unspecified trimester; Z3A.35 35 weeks gestation of pregnancy
CPT/HCPCS: 59025; 76819

== ENCOUNTER 2024-05-24 14:08 | Inpatient (IN) | payer OTHER, MEDICAID, SELFPAY ==
[2024-05-24] VITALS (127 sets, daily range): BP systolic 70–183; BP diastolic 35–118; PULSE 71–203; TEMP 36.8–37.4; O2SAT 63–100; BMI 52.6
[2024-05-24 15:38] LABS: Basophils Percent Auto 0.3 % (0.2-1.2); Eosinophils Absolute Auto 0.1 K/mm3 (0-0.3); Eosinophils Percent Auto 0.8 % (0-4.4); Hematocrit 38.9 % (37.0-47.0); Hemoglobin 12.7 g/dL (12.0-15.0); Immature Granulocyte Absolute 0.05 K/mm3 (0.00-0.031); Immature Granulocyte Percent A 0.5 % (0-0.5); Lymphocytes Percent Auto 23.2 % (18.3-44.2); Mean Corpuscular HGB Conc 32.6 g/dl (32-36); Mean Corpuscular Hemoglobin 25.8 pg (26-34); Mean Corpuscular Volume 79.1 fl (80-100); Mean Platelet Volume 11.3 fl (7.4-10.4); Monocytes Absolute Auto 0.7 K/mm3 (0.1-0.6); Neutrophils Absolute Auto 7.4 K/mm3 (1.3-6.7); Neutrophils Percent Auto 69.2 % (45.5-73.1); Platelet Count Result 248 k/mm3 (150-375); Red Blood Count 4.92 M/mm3 (4.2-5.4); White Blood Count 10.8 K/mm3 (4.5-10.0)
[2024-05-24 16:15] LABS: Syphilis IgG/IgM Antibody Negative (Negative)
[2024-05-24 16:28] LABS: HIV 1/2 Ab P24 Ag Result Negative (Negative)
[2024-05-24 16:43] LABS: Alanine Aminotransferase 20 U/L (6-35); Albumin Level 3.2 g/dL (3.5-5.1); Alkaline Phosphatase 136 U/L (38-126); Anion Gap 11 mmol/L (4-12); Aspartate Amino Transferase 31 U/L (14-36); Bilirubin,Total 0.3 mg/dL (0.2-1.3); Blood Urea Nitrogen 14 mg/dL (7-17); Calcium 9.4 mg/dL (8.4-10.2); Carbon Dioxide 17 mmol/L (22-30); Chloride 106 mmol/L (98-107); Estimated Glomerular Filt Rate > 60; Glucose 118 mg/dL (65-110); Potassium 4.3 mmol/L (3.4-5.0); Sodium 134 mmol/L (137-145); Uric Acid 7.1 mg/dL (2.5-7.5)
[2024-05-24] MEDS: LABETALOL HCL 100 MG TABLET 200 MG PO (16:50)
--- OUTSIDE RECORDS SUMMARY | 2024-05-24 16:50 | XMS_ITS | Continuity of Care Document ---
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 Plan of Treatment Reminders Order Date Submit Date Provider Last Modified By Organization Details Last Modified Time Details Appointments U/S OB BPP 2024 09:00A M ULTRASOUND Not available Not available Not available NST 2024 09:30A M NST SCHEDULE Not available Not available Not available OB ROUTINE 2024 10:00A M BIPIN RODRÍGUEZ MD Not available Not available Not available INDUCTI ON 2024 12:00A M BIPIN RODRÍGUEZ MD Not available Not [...] d. Imaging non-str ess test 2024 025 [email or web address] [facility], [address], [address], [place], [address], 05/24/2024 11:54:56 Medication Orders None recorde d. Patient TargetsNo targets recorded. Patient InstructionsNo instructions recorded. Reason for Referral None Reported. Results Created Date Observation Date Name Description Value Unit Range Abnormal Flag Note LastModifiedBy Organization Detail LastModifiedTime 10/29/19 24 10/29/2023 US, obste tric, trans vagin al No observ ation record ed. [email or web address] [facility] [address], [place], [address], 10/29/2023 13:07:15 10/29/19 24 10/29/2023 US, obste tric, follo w-up No observ ation record ed. Latisha [address], [place], [address], 10/30/2023 17:04:50 12/03/19 24 12/03/2023 US, obste tric, nucha l trans lucen cy No observ ation record ed. [email or web address] [facility] [address], [place], [address], 12/03/2023 14:04:30 12/03/19 24 12/03/2023 US, obste tric, follo w-up No observ ation record ed. Latisha [address], [place], [address], 12/04/2023 08:41:06 02/02/20 24 02/02/2024 US, obste tric, 2nd or 3rd trime ster No observ ation record ed. [email or web address] [facility] [address], [place], [address], 02/02/2024 19:16:06 02/02/20 24 02/02/2024 US, obste tric, 2nd or 3rd trime ster No observ ation record ed. MARCI [facility] [address], [place], [address], 02/02/2024 13:39:26 03/01/20 24 03/01/2024 US, obste tric, follo w-up No observ ation record ed. [email or web address] [facility] [address], [place], [address], 03/01/2024 13:04:13 03/01/20 24 03/01/2024 US, obste tric, follo w-up No observ ation record ed. [email or web address] [facility] [address], [place], [address], 03/01/2024 18:01:55 03/24/20 24 03/24/2024 US, obste tric, follo w-up No observ ation record ed. [email or web address] [facility] [address], [address], 03/25/2024 15:07:53 04/08/19 25 04/08/2024 US, obste tric, follo w-up No observ ation record ed. [email or web address] [facility] [address], [address], 04/21/2024 11:05:34 04/08/19 25 04/08/2024 imagi ng/di agnos tic resul t No observ ation record ed. [address], [place], [address], 04/09/2024 10:30:29 04/22/19 25 04/22/2024 US, obste tric, follo w-up No observ ation record ed. [address] [facility] [place] [address] [facility], [place], [address], 04/23/2024 20:51:38 04/22/19 25 04/22/2024 US, obste tric, follo w-up No observ ation record ed. [address] [facility] [place] [address], [place], [address], 04/23/2024 09:57:54 04/22/19 25 04/22/2024 US, obste tric, follo w-up No observ ation record ed. [address] [facility] [place] [address] [facility], [place], [address], 04/23/2024 20:53:23 04/22/19 25 04/22/2024 US, doppl er, echoc ardio gram, follo w-up No observ ation record ed. [address] [facility] [place] [address] [facility], [place], [address], 04/27/2024 07:30:58 04/22/19 25 04/22/2024 US, obste tric, follo w-up No observ ation record ed. [address] [facility] [address], [place], [address], 04/23/2024 09:59:17 04/22/19 25 04/22/2024 US, obste tric, follo w-up No observ ation record ed. [address] [facility] [address], [place], [address], 04/23/2024 09:58:52 04/22/19 25 04/22/2024 US, obste tric, follo w-up No observ ation record ed. [address] [facility], [place], [address], 04/23/2024 09:58:38 04/23/19 25 04/23/2024 imagi ng/di agnos tic resul t No observ ation record ed. [facility] [address], [place], [address], 04/25/2024 10:48:45 04/27/19 25 04/27/2024 US, obste tric, bioph ysica l profi le + non-s tress test No observ ation record ed. [email or web address] [facility] [address], [place], [address], 04/27/2024 17:41:59 04/27/19 25 04/27/2024 US, obste tric, bioph ysica l profi le + non-s tress test No observ ation record ed. [email or web address] [facility] [address], [place], [address], 04/27/2024 21:32:25 04/27/19 25 04/27/2024 non-s tress test No observ ation record ed. [email or web address] [facility] [address], [place], [address], 04/27/2024 14:30:50 04/29/19 25 04/29/2024 non-s tress test No observ ation record ed. [address] [facility] [address], [place], [address], 04/29/2024 14:47:44 04/29/19 25 04/29/2024 non-s tress test No observ ation record ed. [email or web address] [facility] [address], [place], [address], 04/29/2024 14:54:57 05/03/19 25 05/03/2024 US, obste tric, bioph ysica l profi le + non-s tress test No observ ation record ed. [email or web address] [facility] [address], [place], [address], 05/03/2024 17:58:34 05/03/19 25 05/03/2024 US, obste tric, bioph ysica l profi le + non-s tress test No observ ation record ed. [email or web address] [facility] [address], [place], [address], 05/05/2024 21:12:06 05/03/19 25 05/03/2024 non-s tress test No observ ation record ed. [email or web address] [facility] [address], [place], [address], 05/03/2024 12:26:44 05/06/19 25 05/06/2024 non-s tress test No observ ation record ed. [facility] [address], [place], [address], 05/06/2024 10:57:38 05/10/19 25 05/10/2024 US, obste tric, bioph ysica l profi le + non-s tress test No observ ation record ed. [email or web address] [facility] [address], [place], [address], 05/10/2024 16:26:01 05/10/19 25 05/10/2024 US, obste tric, bioph ysica l profi le + non-s tress test No observ ation record ed. [email or web address] [facility] [address], [place], [address], 05/10/2024 23:42:06 05/10/19 25 05/10/2024 non-s tress test No observ ation record ed. [email or web address] [facility] [address], [place], [address], 05/10/2024 11:49:04 05/13/19 25 05/13/2024 non-s tress test No observ ation record ed. [email or web address] [facility] [address], [place], [address], 05/13/2024 16:47:38 05/17/19 25 05/17/2024 US, obste tric, follo w-up No observ ation record ed. [email or web address] [facility] [address], [place], [address], 05/17/2024 13:56:22 05/17/19 25 05/17/2024 US, obste tric, follo w-up No observ ation record ed. [email or web address] [address] [facility], [place], [address], 05/18/2024 12:41:00 05/17/19 25 05/17/2024 non-s tress test No observ ation record ed. [facility] [address], [place], [address], 05/17/2024 11:58:36 05/17/19 25 05/17/2024 imagi ng/di agnos tic resul t No observ ation record ed. [facility] [address], [place], [address], 05/18/2024 12:48:36 05/17/19 25 05/17/2024 imagi ng/di agnos tic resul t No observ ation record ed. [facility] [address], [place], [address], 05/18/2024 12:48:13 05/20/19 25 05/20/2024 non-s tress test No observ ation record ed. [facility] [address], [place], [address], 05/20/2024 11:11:16 05/24/19 25 05/24/2024 US, obste tric, bioph ysica l profi le + non-s tress test No observ ation record ed. [email or web address] [facility] [address], [place], [address], 05/24/2024 12:56:50 05/24/19 25 05/24/2024 US, obste tric, bioph ysica l profi le + non-s tress test No observ ation record ed. [email or web address] [address], [place], [address], 05/24/2024 11:35:23 05/24/19 25 05/24/2024 non-s tress test No observ ation record ed. [email or web address] [facility] [address], [place], [address], 05/24/2024 11:52:16 Result Notes None recorded. Problems Name Problem SNOMED Code Status Onset Date Resolution Date Notes Provider Name and Address Organization Details Recorded Time 67633956 Active 2023 Carmela Ryder null, [facility] 4 12:23:09 Body mass index 40+ - severely obese 471451636 Active testing @ 34wks Odilia ePña null, [facility] 4 15:01:19 Body mass index 40+ - severely obese 028678249 Active testing @ 34wks Odiliasevero Peña null, [facility] 4 15:01:19 Alpha thalassem ia 04900887 Active 2023 silent carrier, low risk Lisbeth Wise null, [facility] 4 10:09:47 Gestation al diabetes mellitus 68192642 Active BS QID and serial growth pt scheduled [facility] 04/22/24 Lantus 10u in AM, 25u @ HS DT referral faxed 04/16 [facility] 04/22 Appt BIPIN RODRÍGUEZ MD [address], [place], [address], [facility] 5 11:58:23 Gestation al diabetes mellitus 64931293 Active BS QID and serial growth pt scheduled [facility] 04/22/24 Lantus 10u in AM, 25u @ HS DT referral faxed 04/16 [facility] 04/22 Appt BIPIN RODRÍGUEZ MD [address], [place], [address], [facility] 5 11:58:23 Pre-eclam psia 310781585 Active LD labs 0.75 2xwkly [facility] 18:10:41 Pre-eclam psia 263644621 Active LD labs 0.75 2xwkly testing Odilia Peña [facility] 5 18:10:41 Problem Notes None recorded. Procedures Surgical History Date Name Laterality Status Provider Name and Address Organization Details Recorded Time 3 Colposcopy completed [facility] 10/29/2023 12:39:09 3 Date of Last Pap Smear completed [facility] 10/29/2023 12:04:48 3 Colposcopy completed [facility] 12/03/2023 12:46:10 Imaging Results Imaging Date Name Status LastModified by Organiz ation Details LastModified Time 05/24/2024 non-stress test completed [facility] [address], [place], [address], 05/24/2024 11:52:16 Procedure Notes None recorded. Medical Equipment None [...] completed Not Available Not Available Not Available cyclobenzap rine 5 mg tablet TAKE 1 TABLET 3 TIMES A DAY BY ORAL ROUTE NEEDED. active Not Available Not Available No t Available nitrofurant oin monohydrate /macrocryst als 100 mg capsule TAKE 1 CAPSULE BY MOUTH EVERY 12 HOURS DIRECTED FOR 7 DAYS 05/10 completed Not Available Not Available Not Available OneTouch Verio test strips TEST BLOOD SUGARS 4 TIMES A DAY active Not Available Not Available No t Available Vitamin 27 mg iron-800 mcg tablet 1 tablet every day by oral route. 2023 active Not Available Not Available Not Avai lable OneTouch Verio Flex Meter TEST BLOOD SUGARS 4 TIMES A DAY active Not Available Not Available No t Available BD Veo Insulin Syringe Ultra-Fine 0.3 mL 31 gauge x 15/64 test blood sugars four times a day active Not Available Not Available No t Available BD Veo Insulin Syringe Ultra-Fine 1 mL 31 gauge x 15/64 active Not Available Not Available Not Available OneTouch Delica Plus Lancet 33 gauge test blood sugars four times a day active Not Available Not Available No t Available Vitals Date Recorded Body height Body mass index (BMI) Body weight Systolic blood pressure Diastolic blood pressure Provider Name and Address Organization Details Last Updated DateTime 05/24/2024 165.1 cm 52.6 kg/m2 337338.1 9 g 143 mm[Hg] 80 mm[Hg] Amberlilibeth Barrientos [facility] 5 11:50:39 Social History Question Answer Notes LastModified by [...] Or The Highest Degree You Have Received? [id number] Information not available 12/03/2023 What Is Your Occupation? [employer] Information not available 12/03/2023 Are There [...] Anxious, Or Unable To Sleep At Night)? [id number] Information not available 12/03/2023 Do You Use Any Illicit Or Recreational Drugs? Yes Information not available 12/03/2023 Do You Use Sunscreen Routinely? Yes Information not available 12/03/2023 Have You Used IV Drugs? No Information not available 12/03/2023 Sex: Unknown Functional Status Question Answer Note LastModified by Organizat ion Details LastModified Time Do you have difficulty walking or climbing stairs? No [email or web address] Information not available 05/10/2024 Are you able to walk? YESWOREST Information not available 12/03/2023 Are you able to care for yourself? Yes [email or web address] Information not available 05/10/2024 Do you have difficulty dressing or bathing? No [email or web address] Information not available 05/10/2024 What is your exercise level? Occasional Information not available 12/03/2023 Mental Status None recorded. Family History Relationship Description Onset Age of this Age Resolved Age Notes LastModified by Organization Details LastModified Time Mother Diabetes mellitus [email or web address] Not available 2023 12:38:27 Maternal Grandfather Diabetes mellitus [email or web address] Not available 2023 12:45:55 Maternal Grandmother Malignant neoplastic disease [email or web address] Not available 2023 12:45:55 Medical History Condition Response Allergies (Food, seasonal, environmental ) N Other N Breast Cancer N Drug/Latex Allergies/Reactions N Blood Transfusion N Dermatologic Disorders N Lung Disease N Defects or Inherited Disease N Breast Problem N Gestational Diabetes N Hematologic disorders N Anesthesia Complications N History of STI N Deep Vein Thrombosis N Polycystic ovary syndrome N Anxiety Disorder N Autoimmune disease N Arthritis N Infertility N Polyps N Acid Reflux (GERD) N History of abnormal pap N Cancer N Stroke N Varicosities N Neurologic/Epilepsy N Endometriosis N High Cholesterol N Headaches N Fibromyalgia N Kidney Disease N Heart Problems N Kidney or Bladder Problems N Thyroid Problems N GI Problems N Eating Disorder [...] SNOMED-CT Code Diagnosis ICD10 Code Diagnosis Note [id number] Fabiola Fraga [facility] [address],[place] [address] 04/27/2024 10:35:14 04/27/2024 11:06:01 Gestational diabetes mellitus 18349454 O24.414 O99.210 O14.93 Z3A.33 [id number] [facility] [address],[place] [address] 04/27/2024 10:35:32 04/27/2024 14:34:56 Maternal obesity complicating , childbirth and the puerperium, antepartum 7323196415 07 O99.212 [id number] BIPIN RODRÍGUEZ MD [facility] [address],[place] [address] 04/27/2024 10:36:48 04/27/2024 14:34:49 Mild pre-eclampsia 55430952 O14.03 - twice weekly testing- weekly labs- 37 week induction Gestationa l diabetes mellitus class A2 85163670 O24.414 - just started lantus 10u- continue to monitor glucose closely Maternal o besity complicating , childbirth and the puerperium, antepartum 9733844186 07 O99.212 Gestation period, 33 weeks 68276771 Z3A.33 [id number] Amber Barrientos [facility] [address],[place] [address] 04/29/2024 09:58:29 04/29/2024 15:13:41 Maternal obesity complicating , childbirth and the puerperium, antepartum 9436588219 07 O99.212 [id number] [facility] [address],[place] [address] 05/03/2024 10:57:51 05/03/2024 11:34:01 Gestational diabetes mellitus 33251797 O24.414 Z3A.33 [id number] [facility] [address],[place] [address] 05/03/2024 10:58:29 05/03/2024 12:33:38 Gestational diabetes mellitus 62438850 O24.410 [id number] [facility] [address],[place] [address] 05/06/2024 10:02:41 05/06/2024 11:03:39 Gestational diabetes mellitus 61944739 O24.410 [id number] BIPIN RODRÍGUEZ MD [facility] [address],[place] [address] 05/06/2024 10:03:12 05/06/2024 11:52:45 -induced hypertension 14385941 O13.9 - asymptomat ic- BP mild range- return precaution s discussed Maternal o besity complicating , childbirth and the puerperium, antepartum 2962237832 07 O99.212 Gestationa l diabetes mellitus class A2 87797640 O24.414 - increase to lantus 25u- continue to monitor glucose closely Gestation period, 34 weeks 84679930 Z3A.34 [id number] [facility] [address],[place] [address] 05/10/2024 10:31:39 05/10/2024 11:06:29 -induced hypertension 93185228 O13.9 O24.414 O99.213 Z3A.34 [id number] CHRIS Dickey [facility] [address],[place] [address] 05/10/2024 10:31:55 05/10/2024 11:54:07 Maternal obesity complicating , childbirth and the puerperium, antepartum 4624152363 07 O99.212 [id number] BIPIN RODRÍGUEZ MD [facility] [address],[place] [address] 05/10/2024 10:32:20 05/10/2024 12:01:39 Low back pain in 0476401008 106 O26.899 Gestationa l diabetes mellitus class A2 13527498 O24.414 - increase to lantus 25u at night, 10u in AM- continue to monitor glucose closely Pre-eclampsia 484762873 O14.03 Gestation period, 34 weeks 89238161 Z3A.34 [id number] Jaci Alarcon [facility] [address],[place] [address] 05/13/2024 10:33:11 05/13/2024 17:18:50 Body mass index 40+ - severely obese 680541970 Z68.43 [id number] Kate Greenwood [facility] [address],[place] [address] 05/17/2024 10:31:04 05/17/2024 11:20:53 Gestational diabetes mellitus 64489311 O24.414 O99.213 Z3A.35 [id number] Amber Iliana [facility] [address],[place] [address] 05/17/2024 10:31:41 05/17/2024 12:00:35 Maternal obesity complicating , childbirth and the puerperium, antepartum 0042643161 07 O99.212 [id number] BIPIN RODRÍGUEZ MD [facility] [address],[place] [address] 05/17/2024 10:31:57 05/17/2024 15:19:18 Gestational diabetes mellitus class A2 79912843 O24.414 - continue lantus 25u at night, 10u in AM; has not taken AM lantus in 2 days due to lower sugars.- continue to monitor glucose closely Mild pre-eclampsia 59406 007 O14.03 - twice weekly testing; BPP 09/14 today, will send to hospital for further monitoring - weekly labs- 37 week induction Maternal o besity complicating , childbirth and the puerperium, antepartum 2686267564 07 O99.212 Gestation period, 35 weeks 05003470 Z3A.35 - GBS collected today [id number] Amber Barrientos [facility] [address],[facility] [place] [address] 05/20/2024 10:33:19 05/20/2024 11:25:57 Maternal obesity complicating , childbirth and the puerperium, antepartum 2775232719 07 O99.212 [id number] Kate Greenwood [facility] [address],[place] [address] 05/24/2024 10:33:47 05/24/2024 11:42:00 Gestational diabetes mellitus 17667733 O24.414 O99.213 Z3A.36 [id number] Amber Barrientos [facility] [address],[place] [address] 05/24/2024 10:34:51 05/24/2024 11:54:56 Maternal obesity complicating , childbirth and the puerperium, antepartum 2239580850 07 O99.212 Health Concerns Section Related Observation LastModified by Organization Detai ls LastModified Time None Recorded Concern Status LastModified by Organization Details LastModified Time None Recorded Payers Encounter Date Sequence Insurance Name Policy Number Policy Li Covered Member ID Li Member ID Guarantor Name 05/24/2024 1 [employer] - CHOICE (POS II) [id number] Rochelle Louise [id number] 5 Rochelle Louise OBGyn Episode Ob Episode Information Episode Created Date Number of Fetuses Patient Bloodtype Patient rh Status Prepregnancy Weight lbs Domestic Partner Domestic Partner Phone Father Name [employer]er Status 10/29/19 24 1 A Positive OPEN Fetus Data First Name Last Name Admitted to NICU Weight (g) Sex Living Outcome Pediatric Complications Fetus ID Race Codes Race Delivery Type [id number] Problems Problem Notes UDS +THCComplete anatomy - [facility] & 04/22/24 USincomplete cardiac views [facility] echo referral faxed 04/16- echo in chart (recommend pediatric cardiolgy [facility] arrange ) Problem Name Start Date End Date Resolution Snomed Code Not e Body mass index 40+ - severely obese 783745632 dereje marylug @ 34wks Alpha thalassemia 12/18/2023 78527843 s ilent carrier, low risk Pre-eclampsia 650057529 LD lab s 0.752xwkly testing Gestational diabetes mellitus 11158256 BS QID and layton cruz growth pt scheduled Bhumika [facility] 04/22/24Lantus 10u in AM, 25u @ HS DT referral faxed 04/16 [facility] 04/22 Appt Adan Calculation Initial Adan [...] Latest Days Gestation 0 06/16/19 25 0 Pre-bimal Flowsheet Flowsheet Date 10/29/2023 March Score Blood Edema Fundus Height Fundus Units Glucose Ketones Leukocytes Nitrite Labor Signs Protein Cervic Dilation Cervic Effacement Cervic Station Type Weight in lbs Pre/Post Dialysis Refused Weight 289.542365566502 BP Diastolic BP Location Tested BP Systolic [...] Weight in lbs Pre/Post Dialysis Refused Weight 291.396860001205 BP Diastolic BP Location Tested BP Systolic BP Type 84 138 Fetus Heart Rate Present Fetus Movement Comments Patient presents to [facility] care. Nausea much improved! Has not needed [...] Type Weight in lbs Pre/Post Dialysis Refused 297.018125851561 BP Diastolic BP Location Tested BP Systolic BP Type 84 L arm 135 sitting Fetus Heart Rate Present Fetus Movement A No Comments Doing well, no movemen t. No cramping or bleeding. Will run ZULEMA for UTI. LR female NIPT. Silent carrier [...] Type Weight in lbs Pre/Post Dialysis Refused 308.009695769852 BP Diastolic BP Location Tested BP Systolic [...] repeat in 4 weeks, discussed referral to MFM if unable to clear at next visit. [...] Type Weight in lbs Pre/Post Dialysis Refused 315.887417557786 BP Diastolic BP Location Tested BP Systolic BP Type 74 L arm 136 sitting Fetus Heart Rate Present A Present Fetus Movement A Yes Comments Patient c/o of slight swelli ng in feet. No bleeding or cramping. Good movement. EFW 59%, ESTHER normal. LVOT and AA seen, needs RVOT and DA still. Will send to [facility] for completion of anatomy US. Discussed gct and labs for next visit. RTC 4 weeks. Flowsheet Date 03/29/2024 March Score Blood Edema Fundus Height Fundus Units Glucose Ketones Leukocytes Nitrite Labor Signs Protein Cervic Dilation Cervic Effacement Cervic Station neg none Type Weight in lbs Pre/Post Dialysis Refused Weight 311.501448724138 BP Diastolic BP Location Tested BP Systolic BP Type 84 L arm 132 sitting Fetus Heart Rate Present A 150 Fetus Movement A Yes Comments Good movement. No cram ping or bleeding. Saw [facility] for completion of anatomy, heart views still suboptimal. Repeat US scheduled 1/2 with [facility]. GCT and labs today. RTC 2 weeks. Need to discuss tdap at next appointment. Flowsheet Date 04/16/2024 March Score Blood Edema Fundus Height Fundus Units Glucose Ketones Leukocytes Nitrite Labor Signs Protein Cervic Dilation Cervic Effacement Cervic Station Type Weight in lbs Pre/Post Dialysis Refused 316.592668620996 BP Diastolic BP Location Tested BP Systolic BP Type 87 L arm 143 sitting Fetus Heart Rate Present A 145 Fetus Movement A Yes Comments Good movement. No cram ping or bleeding. Diagnosed with GDM, started tracking BG yesterday, PP wnl, fasting elevated x1 (125). Discussed diet, order sent for diet teaching. Discussed parameters for starting insulin. Also discussed incomplete anatomy at [facility], recommend echo, order sent. Will start testing at 34 weeks due to obesity. RTC 2 weeks. Flowsheet Date 04/27/2024 Marhc Score Blood Edema Fundus Height Fundus Units [...] Weight in lbs Pre/Post Dialysis Refused Weight 314.807847087694 BP Diastolic BP Location Tested BP Systolic [...] Weight in lbs Pre/Post Dialysis Refused Weight 316.849128474003 BP Diastolic BP Location Tested BP Systolic BP Type 99 L arm 157 sitting 98 L arm 160 sitting Fetus Heart Rate Present Fetus Movement Comments Flowsheet Date 05/03/2024 March Score Blood Edema Fundus Height Fundus Units Glucose Ketones Leukocytes Nitrite Labor Signs Protein Cervic Dilation Cervic Effacement Cervic Station Type Weight in lbs Pre/Post Dialysis Refused BP Diastolic BP Location Tested BP Systolic BP Type Fetus Heart Rate Present Fetus Movement Comments Flowsheet Date 05/03/2024 March Score Blood Edema Fundus Height Fundus Units Glucose Ketones Leukocytes Nitrite Labor Signs Protein Cervic Dilation Cervic Effacement Cervic Station Type Weight in lbs Pre/Post Dialysis Refused Weight [id number] BP Diastolic BP Location Tested BP Systolic BP Type 92 L arm 142 sitting Fetus Heart Rate Present Fetus Movement Comments Flowsheet Date 05/06/2024 March Score Blood Edema Fundus Height Fundus Units Glucose Ketones Leukocytes Nitrite Labor Signs Protein Cervic Dilation Cervic Effacement Cervic Station Type Weight in lbs Pre/Post Dialysis Refused BP Diastolic BP Location Tested BP Systolic BP Type Fetus Heart Rate Present Fetus Movement Comments Flowsheet Date 05/06/2024 March Score Blood Edema Fundus Height Fundus Units Glucose Ketones Leukocytes Nitrite Labor Signs Protein Cervic Dilation Cervic Effacement Cervic Station neg trace Type Weight in lbs Pre/Post Dialysis Refused Weight 313.528495975000 BP Diastolic BP Location Tested BP Systolic BP Type 88 L arm 144 sitting Fetus Heart Rate Present A 140 Fetus Movement A Yes Comments Patient c/o of back hurting, states stomach has been feeling tight. Swelling in feet and fingers. PP values wnl, fasting elevated. Will increase to 25u. Good movement. No cramping or bleeding. Is having increased back pain, discussed symptomatic relief. May try muscle relaxer if worsening. Denies symptoms of preeclampsia. Will repeat labs today. Will schedule induction for 05/25. RTC for testing. Flowsheet Date 05/10/2024 March Score Blood Edema Fundus Height Fundus Units Glucose Ketones Leukocytes Nitrite Labor Signs Protein Cervic Dilation Cervic Effacement Cervic Station Type Weight in lbs Pre/Post Dialysis Refused BP Diastolic BP Location Tested BP Systolic BP Type Fetus Heart Rate Present Fetus Movement Comments Flowsheet Date 05/10/2024 March Score Blood Edema Fundus Height Fundus Units Glucose Ketones Leukocytes Nitrite Labor Signs Protein Cervic Dilation Cervic Effacement Cervic Station Type Weight in lbs Pre/Post Dialysis Refused BP Diastolic BP Location Tested BP Systolic BP Type Fetus Heart Rate Present Fetus Movement Comments Flowsheet Date 05/10/2024 March Score Blood Edema Fundus Height Fundus Units Glucose Ketones Leukocytes Nitrite Labor Signs Protein Cervic Dilation Cervic Effacement Cervic Station neg trace Type Weight in lbs Pre/Post Dialysis Refused Weight [id number] BP Diastolic BP Location Tested BP Systolic BP Type 82 L arm 142 sitting Fetus Heart Rate Present A 140 Fetus Movement A Yes Comments Patient c/o of back pain. Go od movement. No cramping or bleeding. BPP 10/10. Received RSV, Tdap, COVID, and flu shots. Postprandials within goal, however fastings still elevated. Will add 10u lantus. Will continue 25u lantus. Flowsheet Date 05/13/2024 March Score Blood Edema Fundus Height Fundus Units Glucose Ketones Leukocytes Nitrite Labor Signs Protein Cervic Dilation Cervic Effacement Cervic Station Type Weight in lbs Pre/Post Dialysis Refused BP Diastolic BP Location Tested BP Systolic BP Type Fetus Heart Rate Present Fetus Movement Comments Flowsheet Date 05/17/2024 March Score Blood Edema Fundus Height Fundus Units Glucose Ketones Leukocytes Nitrite Labor Signs Protein Cervic Dilation Cervic Effacement Cervic Station Type Weight in lbs Pre/Post Dialysis Refused BP Diastolic BP Location Tested BP Systolic BP Type Fetus Heart Rate Present Fetus Movement Comments Flowsheet Date 05/17/2024 March Score Blood Edema Fundus Height Fundus Units Glucose Ketones Leukocytes Nitrite Labor Signs Protein Cervic Dilation Cervic Effacement Cervic Station Type Weight in lbs Pre/Post Dialysis Refused BP Diastolic BP Location Tested BP Systolic BP Type Fetus Heart Rate Present Fetus Movement Comments Flowsheet Date 05/17/2024 March Score Blood Edema Fundus Height Fundus Units Glucose Ketones Leukocytes Nitrite Labor Signs Protein Cervic Dilation Cervic Effacement Cervic Station neg trace 1cm 50% -3 Type Weight in lbs Pre/Post Dialysis Refused Weight 315.44931719337 BP Diastolic BP Location Tested BP Systolic BP Type 80 L arm 146 sitting Fetus Heart Rate Present A 140 Fetus Movement A Yes Comments Patient states has been havi ng discharge for the past 5 days. Having contractions since , irregular. No bleeding. Good movement. Sugars well controlled, has not taken AM insulin the past two days due to fasting/PP breakfast glucose in 70s-80s. BPP 09/14, will send to hospital for monitoring and repeat BPP this afternoon. GBS collected. Discussed induction methods for next week. Continue twice weekly testing if extended monitoring wnl today. Flowsheet Date 05/20/2024 March Score Blood Edema Fundus Height Fundus Units Glucose Ketones Leukocytes Nitrite Labor Signs Protein Cervic Dilation Cervic Effacement Cervic Station Type Weight in lbs Pre/Post Dialysis Refused Weight 319.006158923745 BP Diastolic BP Location Tested BP Systolic BP Type 84 L arm 146 sitting Fetus Heart Rate Present Fetus Movement Comments Flowsheet Date 05/24/2024 March Score Blood Edema Fundus Height Fundus Units Glucose Ketones Leukocytes Nitrite Labor Signs Protein Cervic Dilation Cervic Effacement Cervic Station Type Weight in lbs Pre/Post Dialysis Refused BP Diastolic BP Location Tested BP Systolic BP Type Fetus Heart Rate Present Fetus Movement Comments Flowsheet Date 05/24/2024 March Score Blood Edema Fundus Height Fundus Units Glucose Ketones Leukocytes Nitrite Labor Signs Protein Cervic Dilation Cervic Effacement Cervic Station Type Weight in lbs Pre/Post Dialysis Refused BP Diastolic BP Location Tested BP Systolic BP Type Fetus Heart Rate Present Fetus Movement Comments Flowsheet Date 05/24/2024 March Score Blood Edema Fundus Height Fundus Units Glucose Ketones Leukocytes Nitrite Labor Signs Protein Cervic Dilation Cervic Effacement Cervic Station neg trace Type Weight in lbs Pre/Post Dialysis Refused Weight 316.267102622631 BP Diastolic BP Location Tested BP Systolic BP Type 80 L arm 143 sitting Fetus Heart Rate Present Fetus Movement A Yes Comments Menstrual History Last Menstrual Date Menses [...]
--- OUTSIDE RECORDS SUMMARY | 2024-05-24 16:52 | XMS_ITS | Data Portability ---
Author Organization [facility] Address [address] [place] [address] Care Team Providers Care Instructional Coordinator Name Role Phone INDU YUSUF Primary Care Provider Assessment No assessment recorded. Plan of Treatment [...] d. Imaging non-str ess test 2024 025 [email or web address] [place], [address], [place], [address], 05/24/2024 11:54:56 US, obstetr ic, biophys ical profile + non-str ess test 2024 025 [email or web address] [address], [address], [place], [address], 05/24/2024 11:42:00 non-str ess test 2024 025 [place], [address], [place], [address], 05/20/2024 11:25:57 US, obstetr ic, follow- up 2024 025 [email or web address] [place], [address], [place], [address], 05/17/2024 22:46:02 Medication Orders None recorde d. Patient TargetsNo targets recorded. Patient InstructionsNo instructions recorded. Reason for Referral None Reported. Results Created Date Observation Date Name Description Value Unit Range Abnormal Flag Note LastModifiedBy Organization Detail LastModifiedTime 04/29/1904/29/2024 CBC W/DIF F WBC 12.6 10'3/ uL 3.5-10 .5 high Not Available [facility] (Lab) [address], [place], [address], 04/30/2024 05:22:54 04/29/19 25 04/29/2024 CBC W/DIF F RBC 5.04 10'6/ uL (based on docume nted legal sex) 3.80-5 .20 Not Available [facility] (Lab) [address], [place], [address], 04/30/2024 05:22:54 04/29/19 25 04/29/2024 CBC W/DIF F HGB 12.6 g/dL (based on docume nted legal sex) 11.6-1 5.4 Not Available [facility] (Lab) [address], [place], [address], 04/30/2024 05:22:54 04/29/19 25 04/29/2024 CBC W/DIF F HCT 40.2 % (based on docume nted legal sex) 34.0-4 5.0 Not Available [facility] (Lab) [address], [place], [address], 04/30/2024 05:22:54 04/29/19 25 04/29/2024 CBC W/DIF F MCV 79.8 fL 80.0-9 9.0 low Not Available [facility] (Lab) [address], [place], [address], 04/30/2024 05:22:54 04/29/19 25 04/29/2024 CBC W/DIF F MCH 25.0 pg 27.0-3 4.0 low Not Available [facility] (Lab) [address] [place], [address], 04/30/2024 05:22:54 04/29/19 25 04/29/2024 CBC W/DIF F MCHC 31.3 g/dL 32.0-3 5.5 low Not Available [facility] (Lab) [address] [place], [address], 04/30/2024 05:22:54 04/29/19 25 04/29/2024 CBC W/DIF F RDW 14.5 % 11.0-1 5.0 Not Available [facility] (Lab) [address] [facility], [place], [address], 04/30/2024 05:22:54 04/29/19 25 04/29/2024 CBC W/DIF F plt 307 10'3/ uL 150-40 0 Not Available [facility] (Lab) [address] [facility], [place], [address], 04/30/2024 05:22:54 04/29/19 25 04/29/2024 CBC W/DIF F MPV 11.7 fL 8.8-12 .1 Not Available [facility] (Lab) [address] [facility], [place], [address], 04/30/2024 05:22:54 04/29/19 25 04/29/2024 CBC W/DIF F neutrophils 70.2 % 34.0-7 3.0 Not Available [facility] (Lab) [address] [facility], [place], [address], 04/30/2024 05:22:54 04/29/19 25 04/29/2024 CBC W/DIF F lymphocytes 19.8 % 15.0-5 0.0 Not Available [facility] (Lab) [address] [facility], [place], [address], 04/30/2024 05:22:54 04/29/19 25 04/29/2024 CBC W/DIF F monocytes 7.8 % 1.0-15 .0 Not Available [facility] (Lab) [address] [facility], [place], [address], 04/30/2024 05:22:54 04/29/19 25 04/29/2024 CBC W/DIF F eosinophils 1.3 % 0.0-8. 0 Not Available [facility] (Lab) [address] [place], [address], 04/30/2024 05:22:54 04/29/19 25 04/29/2024 CBC W/DIF F basophils 0.3 % 0.0-2. 0 Not Available [facility] (Lab) [address] [facility], [place], [address], 04/30/2024 05:22:54 04/29/19 25 04/29/2024 CBC W/DIF F immature granulocytes 0.6 % no define d refere nce range Immat ure Granu locyt es (IG) repre sents autom ated enume ratio n of Metam yeloc ytes, Myelo cytes and Promy elocy dereje when IG is < 5%. Blast s are not inclu ded in IG and repor loc separ ately if prese nt. Not Available [facility] (Lab) [address] [facility], [place], [address], 04/30/2024 05:22:54 04/29/19 25 04/29/2024 CBC W/DIF F absolute neutrophils 8.9 10'3/ uL 1.5-8. 0 high Not Available [facility] (Lab) [address] [facility], [place], [address], 04/30/2024 05:22:54 04/29/19 25 04/29/2024 CBC W/DIF F absolute lymphocytes 2.5 10'3/ uL 1.0-4. 0 Not Available [facility] (Lab) [address] [facility], [place], [address], 04/30/2024 05:22:54 04/29/19 25 04/29/2024 CBC W/DIF F absolute monocytes 1.0 10'3/ uL 0.2-1. 0 Not Available [facility] (Lab) [address] [facility], [place], [address], 04/30/2024 05:22:54 04/29/19 25 04/29/2024 CBC W/DIF F absolute eosinophils 0.2 10'3/ uL 0.0-0. 6 Not Available [facility] (Lab) [address], [place], [address], 04/30/2024 05:22:54 04/29/19 25 04/29/2024 CBC W/DIF F absolute basophils 0.0 10'3/ uL 0.0-0. 3 Not Available [facility] (Lab) [address] [place], [address], 04/30/2024 05:22:54 04/29/19 25 04/29/2024 CBC W/DIF F absolute immature granulocytes 0.1 10'3/ uL 0.00-0 .10 Refer ence range s for nonbi nary/ inter sex or unspe cifie d gende r patie nts have not been estab lishe d. Pleas e refer to the jessicao wing table for range s estab lishe d for cisge nder patie nts and evalu ate in the clini yvette adalberto xt of the indiv idual patie nt: https ://amy chau book. nm.or g/Gen derX Not Available [facility] (Lab) [address] , [place], [address], 04/30/2024 05:22:54 04/29/19 25 04/29/2024 URIC ACID uric acid 7.3 mg/dL 2.3-6. 6 high Not Available [facility] (Lab) [address] [place], [address], 04/30/2024 05:22:55 04/29/19 25 04/29/2024 CMP(C OMPRE HENSI VE METAB OLIC PANEL ) sodium 134 mmol/ L 133-14 6 Not Available [facility] (Lab) [address] [place], [address], 04/30/2024 05:22:55 04/29/19 25 04/29/2024 CMP(C OMPRE HENSI VE METAB OLIC PANEL ) potassium 4.4 mmol/ L 3.5-5. 1 Not Available [facility] (Lab) [address] [place], [address], 04/30/2024 05:22:55 04/29/19 25 04/29/2024 CMP(C OMPRE HENSI VE METAB OLIC PANEL ) chloride 104 mmol/ L 98-107 Not Available [facility] (Lab) [address] [facility], [place], [address], 04/30/2024 05:22:55 04/29/19 25 04/29/2024 CMP(C OMPRE HENSI VE METAB OLIC PANEL ) carbon dioxide 19 mmol/ L 21-31 low Not Available [facility] (Lab) [address] [facility], [place], [address], 04/30/2024 05:22:55 04/29/19 25 04/29/2024 CMP(C OMPRE HENSI VE METAB OLIC PANEL ) anion gap 11 mmol/ L 4-13 Not Available [facility] (Lab) [address] [facility], [place], [address], 04/30/2024 05:22:55 04/29/19 25 04/29/2024 CMP(C OMPRE HENSI VE METAB OLIC PANEL ) blood urea nitrogen 9 mg/dL 7-25 Not Available [facility] (Lab) [address] [facility], [place], [address], 04/30/2024 05:22:55 04/29/19 25 04/29/2024 CMP(C OMPRE HENSI VE METAB OLIC PANEL ) creatinine 0.67 mg/dL 0.60-1 .30 Not Available [facility] (Lab) [address] [facility], [place], [address], 04/30/2024 05:22:55 04/29/19 25 04/29/2024 CMP(C OMPRE HENSI VE METAB OLIC PANEL ) egfrcr (CKD-epi 2020) >90 mL/mi n/1.7 3_m2 >=60 Not Available [facility] (Lab) [address] [facility], [place], [address], 04/30/2024 05:22:55 04/29/19 25 04/29/2024 CMP(C OMPRE HENSI VE METAB OLIC PANEL ) calcium 9.4 mg/dL 8.3-10 .5 Not Available [facility] (Lab) [address] [place], [address], 04/30/2024 05:22:55 04/29/19 25 04/29/2024 CMP(C OMPRE HENSI VE METAB OLIC PANEL ) glucose 113 mg/dL 70-100 high Not Available [facility] (Lab) [address] [place], [address], 04/30/2024 05:22:55 04/29/19 25 04/29/2024 CMP(C OMPRE HENSI VE METAB OLIC PANEL ) protein, total 6.3 g/dL 6.4-8. 3 low Not Available [facility] (Lab) [address] [place], [address], 04/30/2024 05:22:55 04/29/19 25 04/29/2024 CMP(C OMPRE HENSI VE METAB OLIC PANEL ) albumin 3.3 g/dL 3.5-5. 0 low Not Available [facility] (Lab) [address] [place], [address], 04/30/2024 05:22:55 04/29/19 25 04/29/2024 CMP(C OMPRE HENSI VE METAB OLIC PANEL ) ALT 19 units /L 9-43 Not Available [facility] (Lab) [address] [place], [address], 04/30/2024 05:22:55 04/29/19 25 04/29/2024 CMP(C OMPRE HENSI VE METAB OLIC PANEL ) alkaline phosphatase 94 units /L 34-104 Not Available [facility] (Lab) [address] [place], [address], 04/30/2024 05:22:55 04/29/19 25 04/29/2024 CMP(C OMPRE HENSI VE METAB OLIC PANEL ) AST 30 units /L 13-39 Not Available [facility] (Lab) [address] [place], [address], 04/30/2024 05:22:55 04/29/19 25 04/29/2024 CMP(C OMPRE HENSI VE METAB OLIC PANEL ) bilirubin, total 0.3 mg/dL 0.2-1. 2 Not Available [facility] (Lab) [address], [place], [address], 04/30/2024 05:22:55 05/06/19 25 05/06/2024 CBC W/DIF F WBC 10.8 10'3/ uL 3.5-10 .5 high Not Available [facility] (Lab) [address], [place], [address], 05/07/2024 05:11:21 05/06/19 25 05/06/2024 CBC W/DIF F RBC 4.93 10'6/ uL (based on docume nted legal sex) 3.80-5 .20 Not Available [facility] (Lab) [address], [place], [address], 05/07/2024 05:11:21 05/06/19 25 05/06/2024 CBC W/DIF F HGB 12.5 g/dL (based on docume nted legal sex) 11.6-1 5.4 Not Available [facility] (Lab) [address], [place], [address], 05/07/2024 05:11:21 05/06/19 25 05/06/2024 CBC W/DIF F HCT 39.5 % (based on docume nted legal sex) 34.0-4 5.0 Not Available [facility] (Lab) [address], [place], [address], 05/07/2024 05:11:21 05/06/19 25 05/06/2024 CBC W/DIF F MCV 80.1 fL 80.0-9 9.0 Not Available [facility] (Lab) [address] [place], [address], 05/07/2024 05:11:21 05/06/19 25 05/06/2024 CBC W/DIF F MCH 25.4 pg 27.0-3 4.0 low Not Available [facility] (Lab) [address], [place], [address], 05/07/2024 05:11:21 05/06/19 25 05/06/2024 CBC W/DIF F MCHC 31.6 g/dL 32.0-3 5.5 low Not Available [facility] (Lab) [address], [place], [address], 05/07/2024 05:11:21 05/06/19 25 05/06/2024 CBC W/DIF F RDW 14.8 % 11.0-1 5.0 Not Available [facility] (Lab) [address], [place], [address], 05/07/2024 05:11:21 05/06/19 25 05/06/2024 CBC W/DIF F plt 259 10'3/ uL 150-40 0 Not Available [facility] (Lab) [address], [place], [address], 05/07/2024 05:11:21 05/06/19 25 05/06/2024 CBC W/DIF F MPV 11.9 fL 8.8-12 .1 Not Available [facility] (Lab) [address], [place], [address], 05/07/2024 05:11:21 05/06/19 25 05/06/2024 CBC W/DIF F neutrophils 71.3 % 34.0-7 3.0 Not Available [facility] (Lab) [address], [place], [address], 05/07/2024 05:11:21 05/06/19 25 05/06/2024 CBC W/DIF F lymphocytes 19.2 % 15.0-5 0.0 Not Available [facility] (Lab) [address], [place], [address], 05/07/2024 05:11:21 05/06/19 25 05/06/2024 CBC W/DIF F monocytes 7.3 % 1.0-15 .0 Not Available [facility] (Lab) [address], [place], [address], 05/07/2024 05:11:21 05/06/19 25 05/06/2024 CBC W/DIF F eosinophils 1.1 % 0.0-8. 0 Not Available [facility] (Lab) [address] [facility], [place], [address], 05/07/2024 05:11:21 05/06/19 25 05/06/2024 CBC W/DIF F basophils 0.4 % 0.0-2. 0 Not Available [facility] (Lab) [address] [facility], [place], [address], 05/07/2024 05:11:21 05/06/19 25 05/06/2024 CBC W/DIF F immature granulocytes 0.7 % no define d refere nce range Immat ure Granu locyt es (IG) repre sents autom ated enume ratio n of Metam yeloc ytes, Myelo cytes and Promy elocy dereje when IG is < 5%. Blast s are not inclu ded in IG and repor loc separ ately if prese nt. Not Available [facility] (Lab) [address], [place], [address], 05/07/2024 05:11:21 05/06/19 25 05/06/2024 CBC W/DIF F absolute neutrophils 7.7 10'3/ uL 1.5-8. 0 Not Available [facility] (Lab) [address] [facility], [place], [address], 05/07/2024 05:11:21 05/06/19 25 05/06/2024 CBC W/DIF F absolute lymphocytes 2.1 10'3/ uL 1.0-4. 0 Not Available [facility] (Lab) [address] [facility], [place], [address], 05/07/2024 05:11:21 05/06/1905/06/2024 CBC W/DIF F absolute monocytes 0.8 10'3/ uL 0.2-1. 0 Not Available [facility] (Lab) [address] [facility], [place], [address], 05/07/2024 05:11:21 05/06/19 25 05/06/2024 CBC W/DIF F absolute eosinophils 0.1 10'3/ uL 0.0-0. 6 Not Available [facility] (Lab) [address] [facility], [place], [address], 05/07/2024 05:11:21 05/06/19 25 05/06/2024 CBC W/DIF F absolute basophils 0.0 10'3/ uL 0.0-0. 3 Not Available [facility] (Lab) [address] [facility], [place], [address], 05/07/2024 05:11:21 05/06/1905/06/2024 CBC W/DIF F absolute immature granulocytes 0.1 10'3/ uL 0.00-0 .10 Refer ence range s for nonbi nary/ inter sex or unspe cifie d gende r patie nts have not been estab lishe d. [facility]as e [facility] for range s estab lishe d for cisge nder patie nts and evalu ate in the clini yvette adalberto xt of the indiv idual patie nt: https ://amy chau book. nm.or g/Gen derX Not Available [facility] (Lab) [address] [facility], [place], [address], 05/07/2024 05:11:21 05/06/1905/06/2024 URIC ACID uric acid 6.0 mg/dL 2.3-6. 6 Not Available [facility] (Lab) [address] [place], [address], 05/07/2024 05:11:21 05/06/19 25 05/06/2024 CMP(C OMPRE HENSI VE METAB OLIC PANEL ) sodium 136 mmol/ L 133-14 6 Not Available [facility] (Lab) [address] [facility], [place], [address], 05/07/2024 05:11:22 05/06/19 25 05/06/2024 CMP(C OMPRE HENSI VE METAB OLIC PANEL ) potassium 4.4 mmol/ L 3.5-5. 1 Not Available [facility] (Lab) [address] [facility], [place], [address], 05/07/2024 05:11:22 05/06/19 25 05/06/2024 CMP(C OMPRE HENSI VE METAB OLIC PANEL ) chloride 104 mmol/ L 98-107 Not Available [facility] (Lab) [address] [facility], [place], [address], 05/07/2024 05:11:22 05/06/19 25 05/06/2024 CMP(C OMPRE HENSI VE METAB OLIC PANEL ) carbon dioxide 21 mmol/ L 21-31 Not Available [facility] (Lab) [address] [facility], [place], [address], 05/07/2024 05:11:22 05/06/19 25 05/06/2024 CMP(C OMPRE HENSI VE METAB OLIC PANEL ) anion gap 11 mmol/ L 4-13 Not Available [facility] (Lab) [address] [facility], [place], [address], 05/07/2024 05:11:22 05/06/19 25 05/06/2024 CMP(C OMPRE HENSI VE METAB OLIC PANEL ) blood urea nitrogen 9 mg/dL 7-25 Not Available [facility] (Lab) [address] [place], [address], 05/07/2024 05:11:22 05/06/19 25 05/06/2024 CMP(C OMPRE HENSI VE METAB OLIC PANEL ) creatinine 0.65 mg/dL 0.60-1 .30 Not Available [facility] (Lab) [address] [facility], [place], [address], 05/07/2024 05:11:22 05/06/19 25 05/06/2024 CMP(C OMPRE HENSI VE METAB OLIC PANEL ) egfrcr (CKD-epi 2020) >90 mL/mi n/1.7 3_m2 >=60 Not Available [facility] (Lab) [address] [facility], [place], [address], 05/07/2024 05:11:22 05/06/1905/06/2024 CMP(C OMPRE HENSI VE METAB OLIC PANEL ) calcium 9.5 mg/dL 8.3-10 .5 Not Available [facility] (Lab) [address] [facility], [place], [address], 05/07/2024 05:11:22 05/06/1905/06/2024 CMP(C OMPRE HENSI VE METAB OLIC PANEL ) glucose 106 mg/dL 70-100 high Not Available [facility] (Lab) [address] [facility], [place], [address], 05/07/2024 05:11:22 05/06/1905/06/2024 CMP(C OMPRE HENSI VE METAB OLIC PANEL ) protein, total 6.0 g/dL 6.4-8. 3 low Not Available [facility] (Lab) [address] [facility], [place], [address], 05/07/2024 05:11:22 05/06/1905/06/2024 CMP(C OMPRE HENSI VE METAB OLIC PANEL ) albumin 3.3 g/dL 3.5-5. 0 low Not Available [facility] (Lab) [address] [place], [address], 05/07/2024 05:11:22 05/06/19 25 05/06/2024 CMP(C OMPRE HENSI VE METAB OLIC PANEL ) ALT 17 units /L 9-43 Not Available [facility] (Lab) [address] [facility], [place], [address], 05/07/2024 05:11:22 05/06/19 25 05/06/2024 CMP(C OMPRE HENSI VE METAB OLIC PANEL ) alkaline phosphatase 106 units /L 34-104 high Not Available [facility] (Lab) [address] [facility], [place], [address], 05/07/2024 05:11:22 05/06/19 25 05/06/2024 CMP(C OMPRE HENSI VE METAB OLIC PANEL ) AST 23 units /L 13-39 Not Available [facility] (Lab) [address] [facility], [place], [address], 05/07/2024 05:11:22 05/06/19 25 05/06/2024 CMP(C OMPRE HENSI VE METAB OLIC PANEL ) bilirubin, total 0.3 mg/dL 0.2-1. 2 Not Available [facility] (Lab) [address] [place], [address], 05/07/2024 05:11:22 05/13/19 25 05/13/2024 CBC W/DIF F WBC 12.4 10'3/ uL 3.5-10 .5 high Not Available [facility] (Lab) [address] [place], [address], 05/14/2024 05:01:11 05/13/19 25 05/13/2024 CBC W/DIF F RBC 5.27 10'6/ uL (based on docume nted legal sex) 3.80-5 .20 high Not Available [facility] (Lab) [address] [place], [address], 05/14/2024 05:01:11 05/13/19 25 05/13/2024 CBC W/DIF F HGB 13.5 g/dL (based on docume nted legal sex) 11.6-1 5.4 Not Available [facility] (Lab) [address], [place], [address], 05/14/2024 05:01:11 05/13/19 25 05/13/2024 CBC W/DIF F HCT 43.0 % (based on docume nted legal sex) 34.0-4 5.0 Not Available [facility] (Lab) [address], [place], [address], 05/14/2024 05:01:11 05/13/19 25 05/13/2024 CBC W/DIF F MCV 81.6 fL 80.0-9 9.0 Not Available [facility] (Lab) [address], [place], [address], 05/14/2024 05:01:11 05/13/19 25 05/13/2024 CBC W/DIF F MCH 25.6 pg 27.0-3 4.0 low Not Available [facility] (Lab) [address], [place], [address], 05/14/2024 05:01:11 05/13/1905/13/2024 CBC W/DIF F MCHC 31.4 g/dL 32.0-3 5.5 low Not Available [facility] (Lab) [address], [place], [address], 05/14/2024 05:01:11 05/13/19 25 05/13/2024 CBC W/DIF F RDW 14.7 % 11.0-1 5.0 Not Available [facility] (Lab) [address] [place], [address], 05/14/2024 05:01:11 05/13/19 25 05/13/2024 CBC W/DIF F plt 289 10'3/ uL 150-40 0 Not Available [facility] (Lab) [address] [place], [address], 05/14/2024 05:01:11 05/13/19 25 05/13/2024 CBC W/DIF F MPV 12.1 fL 8.8-12 .1 Not Available [facility] (Lab) [address] [place], [address], 05/14/2024 05:01:11 05/13/19 25 05/13/2024 CBC W/DIF F neutrophils 69.6 % 34.0-7 3.0 Not Available [facility] (Lab) [address] [place], [address], 05/14/2024 05:01:11 05/13/19 25 05/13/2024 CBC W/DIF F lymphocytes 21.2 % 15.0-5 0.0 Not Available [facility] (Lab) [address] [facility], [place], [address], 05/14/2024 05:01:11 05/13/19 25 05/13/2024 CBC W/DIF F monocytes 6.7 % 1.0-15 .0 Not Available [facility] (Lab) [address] [facility], [place], [address], 05/14/2024 05:01:11 05/13/19 25 05/13/2024 CBC W/DIF F eosinophils 1.7 % 0.0-8. 0 Not Available [facility] (Lab) [address] [place], [address], 05/14/2024 05:01:11 05/13/19 25 05/13/2024 CBC W/DIF F basophils 0.2 % 0.0-2. 0 Not Available [facility] (Lab) [address] [place], [address], 05/14/2024 05:01:11 05/13/19 25 05/13/2024 CBC W/DIF F immature granulocytes 0.6 % no define d refere nce range Immat ure Granu locyt es (IG) repre sents autom ated enume ratio n of Metam yeloc ytes, Myelo cytes and Promy elocy dereje when IG is < 5%. Blast s are not inclu ded in IG and repor loc separ ately if prese nt. Not Available [facility] (Lab) [address] [facility], [place], [address], 05/14/2024 05:01:11 05/13/19 25 05/13/2024 CBC W/DIF F absolute neutrophils 8.6 10'3/ uL 1.5-8. 0 high Not Available [facility] (Lab) [address] [facility], [place], [address], 05/14/2024 05:01:11 05/13/19 25 05/13/2024 CBC W/DIF F absolute lymphocytes 2.6 10'3/ uL 1.0-4. 0 Not Available [facility] (Lab) [address] [facility], [place], [address], 05/14/2024 05:01:11 05/13/19 25 05/13/2024 CBC W/DIF F absolute monocytes 0.8 10'3/ uL 0.2-1. 0 Not Available [facility] (Lab) [address] [facility], [place], [address], 05/14/2024 05:01:11 05/13/19 25 05/13/2024 CBC W/DIF F absolute eosinophils 0.2 10'3/ uL 0.0-0. 6 Not Available [facility] (Lab) [address] [place], [address], 05/14/2024 05:01:11 05/13/19 25 05/13/2024 CBC W/DIF F absolute basophils 0.0 10'3/ uL 0.0-0. 3 Not Available [facility] (Lab) [address] [place], [address], 05/14/2024 05:01:11 05/13/19 25 05/13/2024 CBC W/DIF F absolute immature granulocytes 0.1 10'3/ uL 0.00-0 .10 Refer ence range s for nonbi nary/ inter sex or unspe cifie d gende r patie nts have not been estab lishe d. Mirza srinivasan refer to the felipa wing table for range s estab lishe d for cisge nder patie nts and evalu ate in the clini yvette adalberto xt of the indiv idual patie nt: [email or web address] :[email or web address] [email or web address] [email or web address] g/Gen derX Not Available [facility] (Lab) [address] [place], [address], 05/14/2024 05:01:11 05/13/19 25 05/13/2024 CMP(C OMPRE HENSI VE METAB OLIC PANEL ) sodium 134 mmol/ L 133-14 6 Not Available [facility] (Lab) [address] [place], [address], 05/14/2024 05:01:12 05/13/19 25 05/13/2024 CMP(C OMPRE HENSI VE METAB OLIC PANEL ) potassium 4.3 mmol/ L 3.5-5. 1 Not Available [facility] (Lab) [address] [place], [address], 05/14/2024 05:01:12 05/13/19 25 05/13/2024 CMP(C OMPRE HENSI VE METAB OLIC PANEL ) chloride 105 mmol/ L 98-107 Not Available [facility] (Lab) [address] [place], [address], 05/14/2024 05:01:12 05/13/19 25 05/13/2024 CMP(C OMPRE HENSI VE METAB OLIC PANEL ) carbon dioxide 21 mmol/ L 21-31 Not Available [facility] (Lab) [address] [place], [address], 05/14/2024 05:01:12 05/13/19 25 05/13/2024 CMP(C OMPRE HENSI VE METAB OLIC PANEL ) anion gap 8 mmol/ L 4-13 Not Available [facility] (Lab) [address] [facility], [place], [address], 05/14/2024 05:01:12 05/13/19 25 05/13/2024 CMP(C OMPRE HENSI VE METAB OLIC PANEL ) blood urea nitrogen 11 mg/dL 7-25 Not Available [facility] (Lab) [address] [facility], [place], [address], 05/14/2024 05:01:12 05/13/19 25 05/13/2024 CMP(C OMPRE HENSI VE METAB OLIC PANEL ) creatinine 0.73 mg/dL 0.60-1 .30 Not Available [facility] (Lab) [address] [facility], [place], [address], 05/14/2024 05:01:12 05/13/19 25 05/13/2024 CMP(C OMPRE HENSI VE METAB OLIC PANEL ) egfrcr (CKD-epi 2020) >90 mL/mi n/1.7 3_m2 >=60 Not Available [facility] (Lab) [address] [facility], [place], [address], 05/14/2024 05:01:12 05/13/19 25 05/13/2024 CMP(C OMPRE HENSI VE METAB OLIC PANEL ) calcium 9.5 mg/dL 8.3-10 .5 Not Available [facility] (Lab) [address] [place], [address], 05/14/2024 05:01:12 05/13/19 25 05/13/2024 CMP(C OMPRE HENSI VE METAB OLIC PANEL ) glucose 95 mg/dL 70-100 Not Available [facility] (Lab) [address] [place], [address], 05/14/2024 05:01:12 05/13/19 25 05/13/2024 CMP(C OMPRE HENSI VE METAB OLIC PANEL ) protein, total 6.2 g/dL 6.4-8. 3 low Not Available [facility] (Lab) [address] [place], [address], 05/14/2024 05:01:12 05/13/19 25 05/13/2024 CMP(C OMPRE HENSI VE METAB OLIC PANEL ) albumin 3.3 g/dL 3.5-5. 0 low Not Available [facility] (Lab) [address] [facility], [place], [address], 05/14/2024 05:01:12 05/13/19 25 05/13/2024 CMP(C OMPRE HENSI VE METAB OLIC PANEL ) ALT 17 units /L 9-43 Not Available [facility] (Lab) [address] [facility], [place], [address], 05/14/2024 05:01:12 05/13/19 25 05/13/2024 CMP(C OMPRE HENSI VE METAB OLIC PANEL ) alkaline phosphatase 117 units /L 34-104 high Not Available [facility] (Lab) [address] [facility], [place], [address], 05/14/2024 05:01:12 05/13/19 25 05/13/2024 CMP(C OMPRE HENSI VE METAB OLIC PANEL ) AST 23 units /L 13-39 Not Available [facility] (Lab) [address] [facility], [place], [address], 05/14/2024 05:01:12 05/13/19 25 05/13/2024 CMP(C OMPRE HENSI VE METAB OLIC PANEL ) bilirubin, total 0.3 mg/dL 0.2-1. 2 Not Available [facility] (Lab) [address] [facility], [place], [address], 05/14/2024 05:01:12 05/13/19 25 05/13/2024 URIC ACID uric acid 6.1 mg/dL 2.3-6. 6 Not Available [facility] (Lab) [address] [place], [address], 05/14/2024 05:01:12 05/17/1905/17/2024 CULTU RE: GROUP B STREP SCREE N, REFLE X SUSCE PTIBI LITY result report SEE RESULT S BELOW Test: Cultu re: Group B Strep , Refle x Susce ptibi lity ([facility]/ [facility] ) Speci men Sourc e: Vagin a/Rec rajan Speci men Type: Vagin al/Re ctal Speci men Date: 2024 1203 Resul t Date: 2024 1357 Resul t Statu s: Final resul t Abnor mal: No Resul ting Lab: [facility] [address] [facility] [address] [facility] [address] Tel: CULTU RE ----- ----- ----- --- No Group B strep isola loc at 2 days (margo ctive broth enhan cemen t) Not Available [facility] (Lab) [address], [place], [address], 05/21/2024 01:44:46 05/20/1905/20/2024 CMP/C BC/UR IC ACID WBC 11.4 10'3/ uL 3.5-10 .5 high Not Available [facility] (Lab) [address] [place], [address], 05/21/2024 05:16:05 05/20/19 25 05/20/2024 CMP/C BC/UR IC ACID RBC 5.02 10'6/ uL (based on docume nted legal sex) 3.80-5 .20 Not Available [facility] (Lab) [address], [place], [address], 05/21/2024 05:16:05 05/20/19 25 05/20/2024 CMP/C BC/UR IC ACID HGB 12.8 g/dL (based on docume nted legal sex) 11.6-1 5.4 Not Available [facility] (Lab) [address], [place], [address], 05/21/2024 05:16:05 05/20/19 25 05/20/2024 CMP/C BC/UR IC ACID HCT 40.2 % (based on docume nted legal sex) 34.0-4 5.0 Not Available [facility] (Lab) [address] [facility], [place], [address], 05/21/2024 05:16:05 05/20/1905/20/2024 CMP/C BC/UR IC ACID MCV 80.1 fL 80.0-9 9.0 Not Available [facility] (Lab) [address] [facility], [place], [address], 05/21/2024 05:16:05 05/20/1905/20/2024 CMP/C BC/UR IC ACID MCH 25.5 pg 27.0-3 4.0 low Not Available [facility] (Lab) [address] [facility], [place], [address], 05/21/2024 05:16:05 05/20/1905/20/2024 CMP/C BC/UR IC ACID MCHC 31.8 g/dL 32.0-3 5.5 low Not Available [facility] (Lab) [address] [place], [address], 05/21/2024 05:16:05 05/20/1905/20/2024 CMP/C BC/UR IC ACID RDW 14.7 % 11.0-1 5.0 Not Available [facility] (Lab) [address] [place], [address], 05/21/2024 05:16:05 05/20/1905/20/2024 CMP/C BC/UR IC ACID plt 257 10'3/ uL 150-40 0 Not Available [facility] (Lab) [address] [place], [address], 05/21/2024 05:16:05 05/20/19 25 05/20/2024 CMP/C BC/UR IC ACID MPV 12.0 fL 8.8-12 .1 Not Available [facility] (Lab) [address] [place], [address], 05/21/2024 05:16:05 05/20/1905/20/2024 CMP/C BC/UR IC ACID neutrophils 68.9 % 34.0-7 3.0 Not Available [facility] (Lab) [address] [place], [address], 05/21/2024 05:16:05 05/20/1905/20/2024 CMP/C BC/UR IC ACID lymphocytes 20.8 % 15.0-5 0.0 Not Available [facility] (Lab) [address] [place], [address], 05/21/2024 05:16:05 05/20/1905/20/2024 CMP/C BC/UR IC ACID monocytes 7.7 % 1.0-15 .0 Not Available [facility] (Lab) [address] [place], [address], 05/21/2024 05:16:05 05/20/1905/20/2024 CMP/C BC/UR IC ACID eosinophils 1.5 % 0.0-8. 0 Not Available [facility] (Lab) [address] [place], [address], 05/21/2024 05:16:05 05/20/1905/20/2024 CMP/C BC/UR IC ACID basophils 0.4 % 0.0-2. 0 Not Available [facility] (Lab) [address] [place], [address], 05/21/2024 05:16:05 05/20/1905/20/2024 CMP/C BC/UR IC ACID immature granulocytes 0.7 % no define d refere nce range Immat ure Granu locyt es (IG) repre sents autom ated enume ratio n of Metam yeloc ytes, Myelo cytes and Promy elocy dereje when IG is < 5%. Blast s are not inclu ded in IG and repor loc separ ately if prese nt. Not Available [facility] (Lab) [address] [place], [address], 05/21/2024 05:16:05 05/20/19 25 05/20/2024 CMP/C BC/UR IC ACID absolute neutrophils 7.8 10'3/ uL 1.5-8. 0 Not Available [facility] (Lab) [address] [facility], [place], [address], 05/21/2024 05:16:05 05/20/1905/20/2024 CMP/C BC/UR IC ACID absolute lymphocytes 2.4 10'3/ uL 1.0-4. 0 Not Available [facility] (Lab) [address] [facility], [place], [address], 05/21/2024 05:16:05 05/20/19 25 05/20/2024 CMP/C BC/UR IC ACID absolute monocytes 0.9 10'3/ uL 0.2-1. 0 Not Available [facility] (Lab) [address] [place], [address], 05/21/2024 05:16:05 05/20/19 25 05/20/2024 CMP/C BC/UR IC ACID absolute eosinophils 0.2 10'3/ uL 0.0-0. 6 Not Available [facility] (Lab) [address] [place], [address], 05/21/2024 05:16:05 05/20/1905/20/2024 CMP/C BC/UR IC ACID absolute basophils 0.1 10'3/ uL 0.0-0. 3 Not Available [facility] (Lab) [address] [place], [address], 05/21/2024 05:16:05 05/20/19 25 05/20/2024 CMP/C BC/UR IC ACID absolute immature granulocytes 0.1 10'3/ uL 0.00-0 .10 Refer ence range s for nonbi nary/ inter sex or unspe cifie d gende r patie nts have not been estab lishe d. Mirza srinivasan refer to the felipa samuel table for range s estab lishe d for cisge nder patie nts and evalu ate in the clini yvette adalberto xt of the indiv idual patie nt: https :[email or web address] chau book. nm.or g/Gen derX Not Available [facility] (Lab) [address], [place], [address], 05/21/2024 05:16:05 05/20/19 25 05/20/2024 CMP/C BC/UR IC ACID uric acid 6.2 mg/dL 2.3-6. 6 Not Available [facility] (Lab) [address] [place], [address], 05/21/2024 05:16:05 05/20/19 25 05/20/2024 CMP/C BC/UR IC ACID sodium 133 mmol/ L 133-14 6 Not Available [facility] (Lab) [address] [place], [address], 05/21/2024 05:16:05 05/20/19 25 05/20/2024 CMP/C BC/UR IC ACID potassium 4.5 mmol/ L 3.5-5. 1 Not Available [facility] (Lab) [address] [place], [address], 05/21/2024 05:16:05 05/20/19 25 05/20/2024 CMP/C BC/UR IC ACID chloride 104 mmol/ L 98-107 Not Available [facility] (Lab) [address] [place], [address], 05/21/2024 05:16:05 05/20/19 25 05/20/2024 CMP/C BC/UR IC ACID carbon dioxide 20 mmol/ L 21-31 low Not Available [facility] (Lab) [address] [place], [address], 05/21/2024 05:16:05 05/20/19 25 05/20/2024 CMP/C BC/UR IC ACID anion gap 9 mmol/ L 4-13 Not Available [facility] (Lab) [address] [facility], [place], [address], 05/21/2024 05:16:05 05/20/19 25 05/20/2024 CMP/C BC/UR IC ACID blood urea nitrogen 11 mg/dL 7-25 Not Available [facility] (Lab) [address] [facility], [place], [address], 05/21/2024 05:16:05 05/20/19 25 05/20/2024 CMP/C BC/UR IC ACID creatinine 0.69 mg/dL 0.60-1 .30 Not Available [facility] (Lab) [address] [facility], [place], [address], 05/21/2024 05:16:05 05/20/19 25 05/20/2024 CMP/C BC/UR IC ACID egfrcr (CKD-epi 2020) >90 mL/mi n/1.7 3_m2 >=60 Not Available [facility] (Lab) [address] [facility], [place], [address], 05/21/2024 05:16:05 05/20/19 25 05/20/2024 CMP/C BC/UR IC ACID calcium 9.3 mg/dL 8.3-10 .5 Not Available [facility] (Lab) [address] [facility], [place], [address], 05/21/2024 05:16:05 05/20/19 25 05/20/2024 CMP/C BC/UR IC ACID glucose 94 mg/dL 70-100 Not Available [facility] (Lab) [address] [facility], [place], [address], 05/21/2024 05:16:05 05/20/19 25 05/20/2024 CMP/C BC/UR IC ACID protein, total 5.9 g/dL 6.4-8. 3 low Not Available [facility] (Lab) [address] [place], [address], 05/21/2024 05:16:05 05/20/19 25 05/20/2024 CMP/C BC/UR IC ACID albumin 3.0 g/dL 3.5-5. 0 low Not Available [facility] (Lab) [address] [place], [address], 05/21/2024 05:16:05 05/20/19 25 05/20/2024 CMP/C BC/UR IC ACID ALT 13 units /L 9-43 Not Available [facility] (Lab) [address] [facility], [place], [address], 05/21/2024 05:16:05 05/20/19 25 05/20/2024 CMP/C BC/UR IC ACID alkaline phosphatase 122 units /L 34-104 high Not Available [facility] (Lab) [address] [place], [address], 05/21/2024 05:16:05 05/20/19 25 05/20/2024 CMP/C BC/UR IC ACID AST 21 units /L 13-39 Not Available [facility] (Lab) [address] [facility], [place], [address], 05/21/2024 05:16:05 05/20/19 25 05/20/2024 CMP/C BC/UR IC ACID bilirubin, total 0.2 mg/dL 0.2-1. 2 Not Available [facility] (Lab) [address] [place], [address], 05/21/2024 05:16:05 04/22/19 25 04/22/2024 US, obste tric, follo w-up No observ ation record ed. [email or web address] [facility] [address], [place], [address], 04/23/2024 20:51:38 04/22/19 25 04/22/2024 US, obste tric, follo w-up No observ ation record ed. [address] [facility] [place] [address], [place], [address], 04/23/2024 09:57:54 04/22/19 25 04/22/2024 US, obste tric, follo w-up No observ ation record ed. [address] [facility] [place] [id number] [facility], [place], [address], 04/23/2024 20:53:23 04/22/19 25 04/22/2024 US, doppl er, echoc ardio gram, follo w-up No observ ation record ed. [address] [facility] [place] [id number] [facility], [place], [address], 04/27/2024 07:30:58 04/22/19 25 04/22/2024 US, obste tric, follo w-up No observ ation record ed. [address] [facility] [place] [address], [place], [address], 04/23/2024 09:59:17 04/22/19 25 04/22/2024 US, obste tric, follo w-up No observ ation record ed. [address] [facility] [place] [address], [place], [address], 04/23/2024 09:58:52 04/22/19 25 04/22/2024 US, obste tric, follo w-up No observ ation record ed. [address], [place], [address], 04/23/2024 09:58:38 04/23/19 25 04/23/2024 imagi ng/abdoulaye charlesos tic resul t No observ ation record ed. [place] [id number], [place], [address], 04/25/2024 10:48:45 04/27/19 25 04/27/2024 US, obste tric, bioph ysica l profi le + non-s tress test No observ ation record ed. [email or web address] [address], [place], [address], 04/27/2024 17:41:59 04/27/19 25 04/27/2024 US, obste tric, bioph ysica l profi le + non-s tress test No observ ation record ed. [email or web address] [address] [facility], [place], [address], 04/27/2024 21:32:25 04/27/19 25 04/27/2024 non-s tress test No observ ation record ed. [email or web address] [place] [address], [place], [address], 04/27/2024 14:30:50 04/29/19 25 04/29/2024 non-s tress test No observ ation record ed. [address], [place], [address], 04/29/2024 14:47:44 04/29/19 25 04/29/2024 non-s tress test No observ ation record ed. [email or web address] [place] [address], [place], [address], 04/29/2024 14:54:57 05/03/19 25 05/03/2024 US, obste tric, bioph ysica l profi le + non-s tress test No observ ation record ed. [email or web address] [place] [address], [place], [address], 05/03/2024 17:58:34 05/03/19 25 05/03/2024 US, obste tric, bioph ysica l profi le + non-s tress test No observ ation record ed. [email or web address] [address], [place], [address], 05/05/2024 21:12:06 05/03/19 25 05/03/2024 non-s tress test No observ ation record ed. [email or web address] [place] [address], [place], [address], 05/03/2024 12:26:44 05/06/19 25 05/06/2024 non-s tress test No observ ation record ed. [email or web address] [place] [address], [place], [address], 05/06/2024 10:57:38 05/10/19 25 05/10/2024 US, obste tric, bioph ysica l profi le + non-s tress test No observ ation record ed. [email or web address] [place] [address], [place], [address], 05/10/2024 16:26:01 05/10/19 25 05/10/2024 US, obste tric, bioph ysica l profi le + non-s tress test No observ ation record ed. [email or web address] [address], [place], [address], 05/10/2024 23:42:06 05/10/19 25 05/10/2024 non-s tress test No observ ation record ed. [email or web address] [place] [address], [place], [address], 05/10/2024 11:49:04 05/13/19 25 05/13/2024 non-s tress test No observ ation record ed. [email or web address] [place] [address], [place], [address], 05/13/2024 16:47:38 05/17/19 25 05/17/2024 US, obste tric, follo w-up No observ ation record ed. [email or web address] [place] [address], [place], [address], 05/17/2024 13:56:22 05/17/19 25 05/17/2024 US, obste tric, follo w-up No observ ation record ed. [email or web address] [address], [place], [address], 05/18/2024 12:41:00 05/17/19 25 05/17/2024 non-s tress test No observ ation record ed. [email or web address] [place] [address], [place], [address], 05/17/2024 11:58:36 05/17/19 25 05/17/2024 imagi ng/di agnos tic resul t No observ ation record ed. [address] [facility], [place], [address], 05/18/2024 12:48:36 05/17/19 25 05/17/2024 imagi ng/di agnos tic resul t No observ ation record ed. [facility] [address] [facility], [place], [address], 05/18/2024 12:48:13 05/20/19 25 05/20/2024 non-s tress test No observ ation record ed. [email or web address] [place] [address], [place], [address], 05/20/2024 11:11:16 05/24/19 25 05/24/2024 US, richi tric, bioph ysica l profi le + non-s tress test No observ ation record ed. [email or web address] [place] [address], [place], [address], 05/24/2024 12:56:50 05/24/1905/24/2024 US, obste tric, bioph ysica l profi le + non-s tress test No observ ation record ed. [email or web address] [address], [place], [address], 05/24/2024 11:35:23 05/24/1905/24/2024 non-s tress test No observ ation record ed. [email or web address] [place] [address], [place], [address], 05/24/2024 11:52:16 Result Notes None recorded. Problems Name Problem SNOMED Code Status Onset Date Resolution Date Notes Provider Name and Address Organization Details Recorded Time 28490332 Active 2023 Carmela Ryder null, [facility] 4 12:23:09 Body mass index 40+ - severely obese 700854602 Active testing @ 34wks Odilia Peña [facility], [facility] 4 15:01:19 Body mass index 40+ - severely obese 915086034 Active testing @ 34wks Odilia Peña null, [facility] 4 15:01:19 Alpha thalassem ia 20621667 Active 2023 silent carrier, low risk Lisbeth Wise null, [facility] 4 10:09:47 Gestation al diabetes mellitus 08344148 Active BS QID and serial growth pt scheduled [facility] 04/22/24 Lantus 10u in AM, 25u @ HS DT referral faxed 04/16 [facility] 04/22 Appt BIPIN RODRÍGUEZ MD [address], [place], [address], [facility] 5 11:58:23 Gestation al diabetes mellitus 01091224 Active BS QID and serial growth pt scheduled [facility] 04/22/24 Sameerjohanna 10u in AM, 25u @ HS DT referral faxed 04/16 [facility] 04/22 Appt BIPIN RODRÍGUEZ MD [address], [place], [address], [place] [facility] 5 11:58:23 Pre-eclam psia 112237018 Active LD labs 0.75 2xwkly testing Odilia roldan, [facility] 5 18:10:41 Pre-eclam psia 565339075 Active LD labs 0.75 2xwkly testing Odilia Peña [facility], [facility] 5 18:10:41 Problem Notes None recorded. Procedures Surgical History Date Name Laterality Status Provider Name and Address Organization Details Recorded Time 3 Colposcopy completed [facility] 10/29/2023 12:39:09 3 Date of Last Pap Smear completed [facility] 10/29/2023 12:04:48 3 Colposcopy completed [facility] 12/03/2023 12:46:10 Imaging Results Imaging Date Name Status LastModified by Organiz ation Details LastModified Time 04/22/2024 US, obstetric, follow-up completed [email or web address] [facility] [address], [place], [address], 04/23/2024 20:51:38 04/22/2024 US, obstetric, follow-up completed [email or web address] [facility] [address], [place], [address], 04/23/2024 09:57:54 04/22/2024 US, obstetric, follow-up completed [facility] [address] [facility], [place], [address], 04/23/2024 20:53:23 04/22/2024 US, doppler, echocardiogram, follow-up completed [email or web address] [facility] [place] [address] [facility], [place], [address], 04/27/2024 07:30:58 04/22/2024 US, obstetric, follow-up completed [email or web address] [facility] [address], [place], [address], 04/23/2024 09:59:17 04/22/2024 US, obstetric, follow-up completed [email or web address] [facility] [address], [place], [address], 04/23/2024 09:58:52 04/22/2024 US, obstetric, follow-up completed [facility] [address] [facility], [place], [address], 04/23/2024 09:58:38 04/23/2024 imaging/diagnos tic result completed [place] [id number], [place], [address], 04/25/2024 10:48:45 04/27/2024 US, obstetric, biophysical profile + non-stress test completed [email or web address] [place] [address], [place], [address], 04/27/2024 17:41:59 04/27/2024 US, obstetric, biophysical profile + non-stress test completed [email or web address] [address], [place], [address], 04/27/2024 21:32:25 04/27/2024 non-stress test completed [place] [address], [place], [address], 04/27/2024 14:30:50 04/29/2024 non-stress test completed [address], [place], [address], 04/29/2024 14:47:44 04/29/2024 non-stress test completed [email or web address] [place] [address], [place], [address], 04/29/2024 14:54:57 05/03/2024 US, obstetric, biophysical profile + non-stress test [email or web address] [place] [address], [place], [address], 05/03/2024 17:58:34 05/03/2024 US, obstetric, biophysical profile + non-stress test completed [email or web address] [address], [place], [address], 05/05/2024 21:12:06 05/03/2024 non-stress test completed [place] [address], [place], [address], 05/03/2024 12:26:44 05/06/2024 non-stress test completed [email or web address] [place] [address], [place], [address], 05/06/2024 10:57:38 05/10/2024 US, obstetric, biophysical profile + non-stress test completed [email or web address] [place] [address], [place], [address], 05/10/2024 16:26:01 05/10/2024 US, obstetric, biophysical profile + non-stress test completed [email or web address] [address], [place], [address], 05/10/2024 23:42:06 05/10/2024 non-stress test completed [email or web address] [place] [address], [place], [address], 05/10/2024 11:49:04 05/13/2024 non-stress test [email or web address] [place] [address], [place], [address], 05/13/2024 16:47:38 05/17/2024 US, obstetric, follow-up completed [email or web address] [place] [address], [place], [address], 05/17/2024 13:56:22 05/17/2024 US, obstetric, follow-up completed [email or web address] [address], [place], [address], 05/18/2024 12:41:00 05/17/2024 non-stress test completed [email or web address] [place] [address], [place], [address], 05/17/2024 11:58:36 05/17/2024 imaging/diagnos tic result completed [facility] [address], [place], [address], 05/18/2024 12:48:36 05/17/2024 imaging/diagnos tic result completed [facility] [address], [place], [address], 05/18/2024 12:48:13 05/20/2024 non-stress test completed [email or web address] [place] [address], [place], [address], 05/20/2024 11:11:16 05/24/2024 US, obstetric, biophysical profile + non-stress test completed [email or web address] [place] [address], [place], [address], 05/24/2024 12:56:50 05/24/2024 US, obstetric, biophysical profile + non-stress test active [id number], [place], [address], 05/24/2024 11:35:23 05/24/2024 non-stress test completed [email or web address] [place] [address], [place], [address], 05/24/2024 11:52:16 Procedure Notes None recorded. Medical [...] Not Available Not Available Not Available metoclopram ilma 10 mg tablet TAKE 1 TABLET BY [...] and Address Organization Details Last Updated DateTime 05/17/2024 165.1 cm 52.4 kg/m2 460196.6 g 146 mm[Hg] 80 mm[Hg] [facility] 5 11:49:57 Date Recorded Body height Body mass index (BMI) Body weight Systolic blood pressure Diastolic blood pressure Provider Name and Address Organization Details Last Updated DateTime 05/20/2024 165.1 cm 53.1 kg/m2 653600.9 7 g 146 mm[Hg] 84 mm[Hg] [facility] 5 11:10:33 Date Recorded Body height Body mass index (BMI) Body weight Systolic blood pressure Diastolic blood pressure Provider Name and Address Organization Details Last Updated DateTime 05/24/2024 165.1 cm 52.6 kg/m2 222741.1 9 g 143 mm[Hg] 80 mm[Hg] [facility] 11:50:39 Social History Question Answer Notes LastModified [...] You Had Close Contact With A Laboratory-confir [facility] COVID-19 While That Case Was Ill? No [...] Or The Highest Degree You Have Received? [id number] Information not available 12/03/2023 What Is Your [...] Anxious, Or Unable To Sleep At Night)? [id number] Information not available 12/03/2023 Do You Use Any Illicit Or Recreational Drugs? Yes Information not available 12/03/2023 Do You Use Sunscreen Routinely? Yes Information not available 12/03/2023 Have You Used IV Drugs? No Information not available 12/03/2023 Sex: Unknown Functional Status Question Answer Note LastModified by Organizat ion Details LastModified Time Do you have difficulty walking or climbing stairs? No [email or web address] Information not available 05/10/2024 Are you able to walk? YESWOREST Information not available 12/03/2023 Are you able to care for yourself? Yes [email or web address] Information not available 05/10/2024 Do you have difficulty dressing or bathing? No Information not available 05/10/2024 What is your [...] Diagnosis ICD10 Code Diagnosis Note Kate Greenwood [facility] [address] [address] 10/29/2023 11:35:12 10/29/2023 12:27:19 Uterine size for dates discrepancy 893621955 O26.841 Z3A.01 [id number] BIPIN RODRÍGUEZ MD [facility] [address],[place] [address] 10/29/2023 11:39:02 10/29/2023 13:09:43 Nausea and vomiting 39208409 R11.2 test positive 966528784 Z32.01 1. Exam today within normal limits.2. Ultrasound today confirms GA and viability. EDC . GC/Clamydi a testing done: will f/u as indicated. 4. ACOG guidelines and plan of care for reviewed with patient. All questions answered.5 . Return to office at 12 weeks for new OB visit6. Will need new OB labs at next visit.7. Genetic screening: desires. [id number] [facility] [address],[place] [address] 12/03/2023 11:47:08 12/03/2023 12:45:41 screening 617830708 Z36.82 Z3A.12 [id number] [facility] [address],[place] [address] 12/03/2023 11:49:53 12/03/2023 13:47:17 Routine care 198739362 Z34.91 screening 2437 77528 Z36.0 [id number] BIPIN RODRÍGUEZ MD [facility] [address],[place] [address] 01/02/2024 12:02:11 01/02/2024 13:05:31 Routine care 282217348 Z34.91 - continue PNV [id number] Ktaegabino Greenwood [facility] [address],[place] [address] 02/02/2024 11:24:42 02/02/2024 12:43:33 screening for malformation 564796370 Z36.3 Z3A.20 [id number] BIPNI RODRÍGUEZ MD [facility] [address],[place] [address] 02/02/2024 11:25:05 02/02/2024 13:57:19 Body mass index 40+ - severely obese 164212227 Z68.43 - testing at 34 weeks Gestation period, 20 weeks 04778931 Z3A.20 - continue PNV [id number] BIPIN RODRÍGUEZ MD [facility] [address],[place] [address] 03/01/2024 11:58:10 03/01/2024 13:57:27 Maternal obesity complicating , childbirth and the puerperium, antepartum 8427745226 07 O99.212 Gestation period, 24 weeks 387192132 Z3A.24 [id number] Kate Greenwood [facility] [address],[place] [address] 03/01/2024 11:58:57 03/01/2024 12:38:51 screening 702531980 Z36.2 O99.212 Z3A.24 [id number] BIPIN RODRÍGUEZ MD [facility] [address],[place] [address] 03/29/2024 11:18:45 03/29/2024 11:56:51 Maternal obesity complicating , childbirth and the puerperium, antepartum 4583437003 07 O99.212 - plan for testing at 34 weeks Gestation period, 28 weeks 43880510 Z3A.28 [id number] BIPIN RODRÍGUEZ MD [facility] [address],[place] [address] 04/16/2024 14:39:31 04/19/2024 18:24:44 Gestational diabetes mellitus 32681276 O24.410 Maternal o besity complicating , childbirth and the puerperium, antepartum 5317345030 07 O99.212 - plan for testing at 34 weeks Gestation period, 31 weeks 96830880 Z3A.31 [id number] Fabiola Fraga [facility] [address],[place] [address] 04/27/2024 10:35:14 04/27/2024 11:06:01 Gestational diabetes mellitus 21224335 O24.414 O99.210 O14.93 Z3A.33 [id number] Amber Barrientos [facility] [address],[place] [address] 04/27/2024 10:35:32 04/27/2024 14:34:56 Maternal obesity complicating , childbirth and the puerperium, antepartum 3180897659 07 O99.212 [id number] BIPIN RODRÍGUEZ MD [facility] [address],[place] [address] 04/27/2024 10:36:48 04/27/2024 14:34:49 Mild pre-eclampsia 90867572 O14.03 - twice weekly testing- weekly labs- 37 week induction Gestationa l diabetes mellitus class A2 32271268 O24.414 - just started lantus 10u- continue to monitor glucose closely Maternal o besity complicating , childbirth and the puerperium, antepartum 8589710505 07 O99.212 Gestation period, 33 weeks 29345576 Z3A.33 [id number] [facility] [address],[place] [address] 04/29/2024 09:58:29 04/29/2024 15:13:41 Maternal obesity complicating , childbirth and the puerperium, antepartum 4017775999 07 O99.212 [id number] Kate Greenwood [facility] [address],[place] [address] 05/03/2024 10:57:51 05/03/2024 11:34:01 Gestational diabetes mellitus 99711508 O24.414 Z3A.33 [id number] [facility] [address],[place] [address] 05/03/2024 10:58:29 05/03/2024 12:33:38 Gestational diabetes mellitus 93661004 O24.410 [id number] [facility] [address],[place] [address] 05/06/2024 10:02:41 05/06/2024 11:03:39 Gestational diabetes mellitus 32860391 O24.410 [id number] BIPIN RODRÍGUEZ MD [facility] [address],[place] [address] 05/06/2024 10:03:12 05/06/2024 11:52:45 -induced hypertension 55042402 O13.9 - asymptomat ic- BP mild range- return precaution s discussed Maternal o besity complicating , childbirth and the puerperium, antepartum 2952474257 07 O99.212 Gestationa l diabetes mellitus class A2 51570241 O24.414 - increase to lantus 25u- continue to monitor glucose closely Gestation period, 34 weeks 89433658 Z3A.34 [id number] [facility] [address],[place] [address] 05/10/2024 10:31:39 05/10/2024 11:06:29 -induced hypertension 49716744 O13.9 O24.414 O99.213 Z3A.34 [id number] CHRIS Dickey [facility] [place] [address],[place] [address] 05/10/2024 10:31:55 05/10/2024 11:54:07 Maternal obesity complicating , childbirth and the puerperium, antepartum 9601379564 07 O99.212 [id number] BIPIN RODRÍGUEZ MD [facility] [address],[place] [address] 05/10/2024 10:32:20 05/10/2024 12:01:39 Low back pain in 4413492075 106 O26.899 Gestationa l diabetes mellitus class A2 40548562 O24.414 - increase to lantus 25u at night, 10u in AM- continue to monitor glucose closely Pre-eclampsia 635106322 O14.03 Gestation period, 34 weeks 24376055 Z3A.34 [id number] Jaci Alarcon [facility] [place] [address],[place] [address] 05/13/2024 10:33:11 05/13/2024 17:18:50 Body mass index 40+ - severely obese 609252723 Z68.43 [id number] [facility] [address],[place] [address] 05/17/2024 10:31:04 05/17/2024 11:20:53 Gestational diabetes mellitus 20188051 O24.414 O99.213 Z3A.35 [id number] Amber Barrientos [facility] [place] [address],[place] [address] 05/17/2024 10:31:41 05/17/2024 12:00:35 Maternal obesity complicating , childbirth and the puerperium, antepartum 6903088636 07 O99.212 [id number] BIPIN RODRÍGUEZ MD [place] [place] [address],[place] [address] 05/17/2024 10:31:57 05/17/2024 15:19:18 Gestational diabetes mellitus class A2 00530802 O24.414 - continue lantus 25u at night, 10u in AM; has not taken AM lantus in 2 days due to lower sugars.- continue to monitor glucose closely Mild pre-eclampsia 91285 007 O14.03 - twice weekly testing; BPP 09/14 today, will send to hospital for further monitoring - weekly labs- 37 week induction Maternal o besity complicating , childbirth and the puerperium, antepartum 4121100902 07 O99.212 Gestation period, 35 weeks 00102717 Z3A.35 - GBS collected today [id number] Amber Barrientos [facility] [place] [address],[place] [address] 05/20/2024 10:33:19 05/20/2024 11:25:57 Maternal obesity complicating , childbirth and the puerperium, antepartum 0552352654 07 O99.212 [id number] Kate Greenwood [facility] [place] [address],[place] [address] 05/24/2024 10:33:47 05/24/2024 11:42:00 Gestational diabetes mellitus 49050744 O24.414 O99.213 Z3A.36 [id number] Amber Barrientos [facility] [place] [address],[place] [address] 05/24/2024 10:34:51 05/24/2024 11:54:56 Maternal obesity complicating , childbirth and the puerperium, antepartum 2149247704 07 O99.212 Health Concerns Section Related Observation LastModified by Organization Detai ls LastModified Time None Recorded Concern Status LastModified by Organization Details LastModified Time None Recorded Advance Directives Directive None Recorded Payers Encounter Date Sequence Insurance Name Policy Number Policy Li Covered Member ID Li Member ID Guarantor Name 05/17/2024 1 [employer] - CHOICE (POS II) [id number] Rochelle Louise [id number] 5 Rochelle [place] 05/20/2024 1 [employer] - CHOICE (POS II) [id number] Edwini Dani [id number] 5 Cori [place] 05/24/2024 1 [employer] - CHOICE (POS II) [id number] Edwini Dani [id number] 5 Cori Dani 05/24/2024 1 [employer] - CHOICE (POS II) [id number] Rochelle Louise [id number] 5 Rochelle Louise OBGyn Episode Ob Episode Information Episode Created Date Number of Fetuses Patient Bloodtype Patient rh Status Prepregnancy Weight lbs Domestic Partner Domestic Partner Phone Father Name Terrazzo Polisher Status 10/29/19 24 1 A Positive OPEN Fetus Data First Name Last Name Admitted to NICU Weight (g) Sex Living Outcome Pediatric Complications Fetus ID Race Codes Race Delivery Type [id number] Problems Problem Notes UDS +THCComplete anatomy - M [facility] 04/08 & 04/22/24 USincomplete cardiac views [facility] echo referral faxed 04/16- echo in chart (recommend pediatric cardiolgy [facility] arrange ) Problem Name Start Date End Date Resolution Snomed Code Not e Body mass index 40+ - severely obese 064160864 dereje ting @ 34wks Alpha thalassemia 12/18/2023 69609851 s ilent carrier, low risk Pre-eclampsia 390156250 LD lab s 0.752xwkly testing Gestational diabetes mellitus 50184506 BS QID and seri al growth pt scheduled [facility] 04/22/24Lantus 10u in AM, 25u @ HS DT referral faxed 04/16 [facility] 04/22 Appt Adan Calculation Initial Adan [...] Weight in lbs Pre/Post Dialysis Refused Weight 289.703475478862 BP Diastolic BP Location Tested BP Systolic [...] Weight in lbs Pre/Post Dialysis Refused Weight 291.830130158782 BP Diastolic BP Location Tested BP Systolic BP Type 84 138 Fetus Heart Rate Present Fetus Movement Comments Patient presents to [facility] care. Nausea much improved! Has not [...] Type Weight in lbs Pre/Post Dialysis Refused 297.501647039085 BP Diastolic BP Location Tested BP Systolic [...] Type Weight in lbs Pre/Post Dialysis Refused 308.230753943330 BP Diastolic BP Location Tested BP Systolic [...] repeat in 4 weeks, discussed referral to [facility] if unable to clear at next visit. [...] Type Weight in lbs Pre/Post Dialysis Refused 315.339869371264 BP Diastolic BP Location Tested BP Systolic BP Type 74 L arm 136 sitting Fetus Heart Rate Present A Present Fetus Movement A Yes Comments Patient c/o of slight swelli ng in feet. No bleeding or cramping. Good movement. EFW 59%, ESTHER normal. LVOT and AA seen, needs RVOT and DA still. Will send to [facility] for completion of anatomy US. Discussed gct and labs for next visit. RTC 4 weeks. Flowsheet Date 03/29/2024 March Score Blood Edema Fundus Height Fundus Units Glucose Ketones Leukocytes Nitrite Labor Signs Protein Cervic Dilation Cervic Effacement Cervic Station neg none Type Weight in lbs Pre/Post Dialysis Refused Weight 311.325067359225 BP Diastolic BP Location Tested BP Systolic BP Type 84 L arm 132 sitting Fetus Heart Rate Present A 150 Fetus Movement A Yes Comments Good movement. No cram ping or bleeding. Saw [facility] for completion of anatomy, heart views still suboptimal. Repeat US scheduled 1/2 with [facility]. GCT and labs today. RTC 2 weeks. Need to discuss tdap at next appointment. Flowsheet Date 04/16/2024 March Score Blood Edema Fundus Height Fundus Units Glucose Ketones Leukocytes Nitrite Labor Signs Protein Cervic Dilation Cervic Effacement Cervic Station Type Weight in lbs Pre/Post Dialysis Refused 316.393892933285 BP Diastolic BP Location Tested BP Systolic BP Type 87 L arm 143 sitting Fetus Heart Rate Present A 145 Fetus Movement A Yes Comments Good movement. No cram ping or bleeding. Diagnosed with GDM, started tracking BG yesterday, PP wnl, fasting elevated x1 (125). Discussed diet, order sent for diet teaching. Discussed parameters for starting insulin. Also discussed incomplete anatomy at [facility], recommend echo, order sent. Will start testing [...] Weight in lbs Pre/Post Dialysis Refused Weight 314.314669367830 BP Diastolic BP Location Tested BP Systolic [...] Weight in lbs Pre/Post Dialysis Refused Weight 316.316485390610 BP Diastolic BP Location Tested BP Systolic [...] Weight in lbs Pre/Post Dialysis Refused Weight 313.351014692179 BP Diastolic BP Location Tested BP Systolic [...] Weight in lbs Pre/Post Dialysis Refused Weight 313.109150373528 BP Diastolic BP Location Tested BP Systolic [...] Weight in lbs Pre/Post Dialysis Refused Weight 313.544724852810 BP Diastolic BP Location Tested BP Systolic [...] Weight in lbs Pre/Post Dialysis Refused Weight 315.10239909758 BP Diastolic BP Location Tested BP Systolic [...] Weight in lbs Pre/Post Dialysis Refused Weight 319.672441163586 BP Diastolic BP Location Tested BP Systolic [...] Weight in lbs Pre/Post Dialysis Refused Weight 316.207173941302 BP Diastolic BP Location Tested BP Systolic [...]
--- OUTSIDE RECORDS SUMMARY | 2024-05-24 16:52 | XMS_ITS | Continuity of Care Document ---
Author Organization [facility] Address [address] [place] [address] Care Team Providers Care Qa Manager Name Role Phone INDU YUSUF Primary Care [...] recorde d. Surgeries None recorde d. Imaging US, obstetr ic, biophys ical profile + non-str ess test 2024 025 [email or web address] [place], [address], [address], [place], [address], 05/24/2024 11:42:00 Medication Orders None recorde d. Patient TargetsNo targets recorded. Patient InstructionsNo instructions recorded. Reason for Referral None Reported. Results Created Date Observation Date Name Description Value Unit Range Abnormal Flag Note LastModifiedBy Organization Detail LastModifiedTime 10/29/19 24 10/29/2023 US, obste tric, trans vagin al No observ ation record ed. [email or web address] [facility] [address], [place], [address], 10/29/2023 13:07:15 10/29/19 24 10/29/2023 US, obste tric, follo w-up No observ ation record ed. [email or web address] [address], [place], [address], 10/30/2023 17:04:50 12/03/19 24 12/03/2023 US, obste tric, nucha l trans lucen cy No observ ation record ed. [email or web address] [facility] [address], [place], [address], 12/03/2023 14:04:30 12/03/19 24 12/03/2023 US, obste tric, follo w-up No observ ation record ed. Latisha [address], [place], [address], 12/04/2023 08:41:06 02/02/20 24 02/02/2024 US, obste tric, 2nd or 3rd trime ster No observ ation record ed. [email or web address] [facility] [address], [place], [address], 02/02/2024 19:16:06 02/02/20 24 02/02/2024 US, obste tric, 2nd or 3rd trime ster No observ ation record ed. MARCI [address], [place], [address], 02/02/2024 13:39:26 03/01/20 24 03/01/2024 US, obste tric, follo w-up No observ ation record ed. [email or web address] [facility] [address], [place], [address], 03/01/2024 13:04:13 03/01/20 24 03/01/2024 US, obste tric, follo w-up No observ ation record ed. [email or web address] [address], [place], [address], 03/01/2024 18:01:55 03/24/20 24 03/24/2024 US, obste tric, follo w-up No observ ation record ed. [email or web address] [facility] [address], [address], 03/25/2024 15:07:53 04/08/19 25 04/08/2024 US, obste tric, follo w-up No observ ation record ed. [email or web address] [facility] [address], [address], 04/21/2024 11:05:34 04/08/19 25 04/08/2024 imagi ng/abdoulaye charlesos tic resul t No observ ation record ed. [address], [place], [address], 04/09/2024 10:30:29 04/22/19 25 04/22/2024 US, obste tric, follo w-up No observ ation record ed. [address] [facility] [place] [address] [facility], [place], [address], 04/23/2024 20:51:38 04/22/19 25 04/22/2024 US, obste tric, follo w-up No observ ation record ed. [address] [facility] [place] [address], [place], [address], 04/23/2024 09:57:54 04/22/19 25 04/22/2024 US, obste tric, follo w-up No observ ation record ed. [address] [facility] [place] [address] [facility], [place], [address], 04/23/2024 20:53:23 04/22/19 25 04/22/2024 US, doppl er, echoc ardio gram, follo w-up No observ ation record ed. [address] [facility] [place] [id number] [facility], [place], [address], 04/27/2024 07:30:58 04/22/19 25 04/22/2024 US, obste tric, follo w-up No observ ation record ed. [address] [facility] [place] [address], [place], [address], 04/23/2024 09:59:17 04/22/19 25 04/22/2024 US, obste tric, follo w-up No observ ation record ed. [address] [facility] [place] [address], [place], [address], 04/23/2024 09:58:52 04/22/19 25 04/22/2024 US, obste tric, follo w-up No observ ation record ed. [address] [facility], [place], [address], 04/23/2024 09:58:38 04/23/19 25 04/23/2024 imagi ng/di agnos tic resul t No observ ation record ed. [facility] [address] [facility] [address], [place], [address], 04/25/2024 10:48:45 04/27/19 25 04/27/2024 US, obste tric, bioph ysica l profi le + non-s tress test No observ ation record ed. [email or web address] [facility] [address], [place], [address], 04/27/2024 17:41:59 04/27/19 25 04/27/2024 US, obste tric, bioph ysica l profi le + non-s tress test No observ ation record ed. [email or web address] [address] [facility], [place], [address], 04/27/2024 21:32:25 04/27/19 25 04/27/2024 non-s tress test No observ ation record ed. [email or web address] [place] [address], [place], [address], 04/27/2024 14:30:50 04/29/19 25 04/29/2024 non-s tress test No observ ation record ed. [address] [facility] [address], [place], [address], 04/29/2024 14:47:44 04/29/19 25 04/29/2024 non-s tress test No observ ation record ed. [email or web address] [facility] [address], [place], [address], 04/29/2024 14:54:57 05/03/19 25 05/03/2024 US, obste tric, bioph ysica l profi le + non-s tress test No observ ation record ed. [email or web address] [facility] [address], [place], [address], 05/03/2024 17:58:34 05/03/19 25 05/03/2024 US, obste tric, bioph ysica l profi le + non-s tress test No observ ation record ed. [email or web address] [address], [place], [address], 05/05/2024 21:12:06 05/03/19 25 05/03/2024 non-s tress test No observ ation record ed. [email or web address] [facility] [address], [place], [address], 05/03/2024 12:26:44 05/06/19 25 05/06/2024 non-s tress test No observ ation record ed. [email or web address] [facility] [address], [place], [address], 05/06/2024 10:57:38 05/10/19 25 05/10/2024 US, obste tric, bioph ysica l profi le + non-s tress test No observ ation record ed. [email or web address] [facility] [address], [place], [address], 05/10/2024 16:26:01 05/10/19 25 05/10/2024 US, obste tric, bioph ysica l profi le + non-s tress test No observ ation record ed. [email or web address] [address], [place], [address], 05/10/2024 23:42:06 02/03/05/10/2024 non-s tress test No observ ation record ed. [email or web address] [place] [address], [place], [address], 05/10/2024 11:49:04 05/13/19 25 05/13/2024 non-s tress test No observ ation record ed. [email or web address] [place] [address], [place], [address], 05/13/2024 16:47:38 05/17/19 25 05/17/2024 US, obste tric, follo w-up No observ ation record ed. [email or web address] [facility] [address], [place], [address], 05/17/2024 13:56:22 05/17/19 25 05/17/2024 US, obste tric, follo w-up No observ ation record ed. [address] [facility], [place], [address], 05/18/2024 12:41:00 05/17/19 25 05/17/2024 non-s tress test No observ ation record ed. [email or web address] [facility] [address], [place], [address], 05/17/2024 11:58:36 05/17/19 25 05/17/2024 imagi ng/di agnos tic resul t No observ ation record ed. [facility] [address], [place], [address], 05/18/2024 12:48:36 05/17/1905/17/2024 imagi ng/di agnos tic resul t No observ ation record ed. [facility] [address], [place], [address], 05/18/2024 12:48:13 05/20/19 25 05/20/2024 non-s tress test No observ ation record ed. [email or web address] [facility] [address], [place], [address], 05/20/2024 11:11:16 05/24/19 25 05/24/2024 US, obste tric, bioph ysica l profi le + non-s tress test No observ ation record ed. [email or web address] [facility] [address], [place], [address], 05/24/2024 12:56:50 05/24/19 25 05/24/2024 US, obste tric, bioph ysica l profi le + non-s tress test No observ ation record ed. [email or web address] [address], [place], [address], 05/24/2024 11:35:23 05/24/19 25 05/24/2024 non-s tress test No observ ation record ed. [email or web address] [place] [address], [place], [address], 05/24/2024 11:52:16 Result Notes None recorded. Problems Name Problem SNOMED Code Status Onset Date Resolution Date Notes Provider Name and Address Organization Details Recorded Time 07454123 Active 2023 Carmela Ryder null, [facility] 4 12:23:09 Body mass index 40+ - severely obese 586654304 Active testing @ 34wks Odilia Peña null, [facility] 4 15:01:19 Body mass index 40+ - severely obese 173395824 Active testing @ 34wks Odilia Peña null, [facility] 4 15:01:19 Alpha thalassem ia 83160122 Active 2023 silent carrier, low risk Lisbeth Wise null, [facility] 4 10:09:47 Gestation al diabetes mellitus 96915800 Active BS QID and serial growth pt scheduled [facility] 04/22/24 Lantus 10u in AM, 25u @ HS DT referral faxed 04/16 [facility] 04/22 Appt BIPIN RODRÍGUEZ MD [address], [place], [address], [facility] 5 11:58:23 Gestation al diabetes mellitus 68508339 Active BS QID and serial growth pt scheduled [facility] 04/22/24 Lantus 10u in AM, 25u @ HS DT referral faxed 04/16 [facility] 04/22 Appt BIPIN RODRÍGUEZ MD [address], [place], [address], [facility] 5 11:58:23 Pre-eclam psia 302458569 Active LD labs 0.75 2xwkly testing Odilia Casey [facility], [facility] 5 18:10:41 Pre-eclam psia 693836770 Active LD labs 0.75 2xwkly testing [facility] 18:10:41 Problem Notes None recorded. Procedures Surgical History Date Name Laterality Status Provider Name and Address Organization Details Recorded Time 3 Colposcopy completed [facility] 10/29/2023 12:39:09 3 Date of Last Pap Smear completed [facility] 10/29/2023 12:04:48 3 Colposcopy completed [facility] 12/03/2023 12:46:10 Imaging Results Imaging Date Name Status LastModified by Organiz ation Details LastModified Time 05/24/2024 US, obstetric, biophysical profile + non-stress test completed [email or web address] [facility] [address], [place], [address], 05/24/2024 12:56:50 Procedure Notes None recorded. Medical Equipment None [...] Updated DateTime 05/24/2024 165.1 cm 52.6 kg/m2 842398.1 9 g 143 mm[Hg] 80 mm[Hg] Amber Barrientos [facility] 5 11:50:39 Social History Question [...] Or The Highest Degree You Have Received? [id number] Information not available 12/03/2023 What Is Your [...] Anxious, Or Unable To Sleep At Night)? [id number] Information not available 12/03/2023 Do You Use Any Illicit Or Recreational Drugs? Yes Information not available 12/03/2023 Do You Use Sunscreen Routinely? Yes Information not available 12/03/2023 Have You Used IV Drugs? No Information not available 12/03/2023 Sex: Unknown Functional Status Question Answer Note LastModified by Organizat ion Details LastModified Time Do you have difficulty walking or climbing stairs? No [email or web address] Information not available 05/10/2024 Are you able to walk? YESWOREST Information not available 12/03/2023 Are you able to care for yourself? Yes [email or web address] Information not available 05/10/2024 Do you have difficulty dressing or bathing? No [email or web address] Information not available 05/10/2024 What is your [...] SNOMED-CT Code Diagnosis ICD10 Code Diagnosis Note [id number] Fabiola Jacobotobias [facility] [address] [address] 04/27/2024 10:35:14 04/27/2024 11:06:01 Gestational diabetes mellitus 95323203 O24.414 O99.210 O14.93 Z3A.33 [id number] Amber Barrientos [facility] [address],[place] [address] 04/27/2024 10:35:32 04/27/2024 14:34:56 Maternal obesity complicating , childbirth and the puerperium, antepartum 0885105170 07 O99.212 [id number] BIPIN RODRÍGUEZ MD [facility] [address],[place] [address] 04/27/2024 10:36:48 04/27/2024 14:34:49 Mild pre-eclampsia 02091514 O14.03 - twice weekly testing- weekly labs- 37 week induction Gestationa l diabetes mellitus class A2 65581609 O24.414 - just started lantus 10u- continue to monitor glucose closely Maternal o besity complicating , childbirth and the puerperium, antepartum 1080763146 07 O99.212 Gestation period, 33 weeks 06185762 Z3A.33 [id number] Amber Barrientos [facility] [address],[place] [address] 04/29/2024 09:58:29 04/29/2024 15:13:41 Maternal obesity complicating , childbirth and the puerperium, antepartum 8259675939 07 O99.212 [id number] [facility] [address],[place] [address] 05/03/2024 10:57:51 05/03/2024 11:34:01 Gestational diabetes mellitus 21011414 O24.414 Z3A.33 [id number] [facility] [address],[place] [address] 05/03/2024 10:58:29 05/03/2024 12:33:38 Gestational diabetes mellitus 66883590 O24.410 [id number] [facility] [address],[place] [address] 05/06/2024 10:02:41 05/06/2024 11:03:39 Gestational diabetes mellitus 56391990 O24.410 [id number] BIPIN RODRÍGUEZ MD [facility] [address],[place] [address] 05/06/2024 10:03:12 05/06/2024 11:52:45 -induced hypertension 83986128 O13.9 - asymptomat ic- BP mild range- return precaution s discussed Maternal o besity complicating , childbirth and the puerperium, antepartum 3761815821 07 O99.212 Gestationa l diabetes mellitus class A2 52794559 O24.414 - increase to lantus 25u- continue to monitor glucose closely Gestation period, 34 weeks 37484010 Z3A.34 [id number] [facility] [address],[place] [address] 05/10/2024 10:31:39 05/10/2024 11:06:29 -induced hypertension 70060039 O13.9 O24.414 O99.213 Z3A.34 [id number] CHRIS Dickey [facility] [address],[place] [address] 05/10/2024 10:31:55 05/10/2024 11:54:07 Maternal obesity complicating , childbirth and the puerperium, antepartum 2001233602 07 O99.212 [id number] BIPIN RODRÍGUEZ MD [facility] [address],[place] [address] 05/10/2024 10:32:20 05/10/2024 12:01:39 Low back pain in 2301631358 106 O26.899 Gestationa l diabetes mellitus class A2 31988773 O24.414 - increase to lantus 25u at night, 10u in AM- continue to monitor glucose closely Pre-eclampsia 296780335 O14.03 Gestation period, 34 weeks 64851585 Z3A.34 [id number] Jaci Dorian [facility] [address],[place] [address] 05/13/2024 10:33:11 05/13/2024 17:18:50 Body mass index 40+ - severely obese 733924289 Z68.43 [id number] Kate Greenwood [facility] [address],[place] [address] 05/17/2024 10:31:04 05/17/2024 11:20:53 Gestational diabetes mellitus 60902501 O24.414 O99.213 Z3A.35 157337 Amber Barrientos [facility] [address],[place] [address] 05/17/2024 10:31:41 05/17/2024 12:00:35 Maternal obesity complicating , childbirth and the puerperium, antepartum 9068654005 07 O99.212 [id number] BIPIN RODRÍGUEZ MD [facility] [address],[place] [address] 05/17/2024 10:31:57 05/17/2024 15:19:18 Gestational diabetes mellitus class A2 83128262 O24.414 - continue lantus 25u at night, 10u in AM; has not taken AM lantus in 2 days due to lower sugars.- continue to monitor glucose closely Mild pre-eclampsia 11902 007 O14.03 - twice weekly testing; BPP 09/14 today, will send to hospital for further monitoring - weekly labs- 37 week induction Maternal o besity complicating , childbirth and the puerperium, antepartum 3150395191 07 O99.212 Gestation period, 35 weeks 15642349 Z3A.35 - GBS collected today [id number] Amber Barrientos [place] [address],[facility] [address] 05/20/2024 10:33:19 05/20/2024 11:25:57 Maternal obesity complicating , childbirth and the puerperium, antepartum 8474025099 07 O99.212 [id number] Kate [place] [address],[place] [address] 05/24/2024 10:33:47 05/24/2024 11:42:00 Gestational diabetes mellitus 67226229 O24.414 O99.213 Z3A.36 [id number] Amber Barrientos [facility] [address],[place] [address] 05/24/2024 10:34:51 05/24/2024 11:54:56 Maternal obesity complicating , childbirth and the puerperium, antepartum 3126948453 07 O99.212 Health Concerns Section Related Observation LastModified by Organization Detai ls LastModified Time None Recorded Concern Status LastModified by Organization Details LastModified Time None Recorded Payers Encounter Date Sequence Insurance Name Policy Number Policy Li Covered Member ID Li Member ID Guarantor Name 05/24/2024 1 [employer] - CHOICE (POS II) [id number] Rochelle Louise [id number] 5 Rochelle Louise OBGyn Episode Ob Episode Information Episode Created Date Number of Fetuses Patient Bloodtype Patient rh Status Prepregnancy Weight lbs Domestic Partner Domestic Partner Phone Father Name Binder Cutter Hand Status 10/29/19 24 1 A Positive OPEN Fetus Data First Name Last Name Admitted to NICU Weight (g) Sex Living Outcome Pediatric Complications Fetus ID Race Codes Race Delivery Type [id number] Problems Problem Notes UDS +THCComplete anatomy - [facility] & 04/22[facility]24 USincomplete cardiac views [facility] echo referral faxed 04/16- echo in chart (recommend pediatric cardiolgy [facility] arrange ) Problem Name Start Date End Date Resolution Snomed Code Not e Body mass index 40+ - severely obese 398963867 dereje maryulg @ 34wks Alpha thalassemia 12/18/2023 13290984 s ilent carrier, low risk Pre-eclampsia 440180338 LD lab s 0.752xwkly testing Gestational diabetes mellitus 32723044 BS QID and seri al growth pt scheduled Bhumika [facility] 04/22/24Lantus 10u in AM, 25u @ HS DT referral faxed 04/16 [facility] 04/22 Appt Adan Calculation Initial Adan [...] Weight in lbs Pre/Post Dialysis Refused Weight 289.150150087997 BP Diastolic BP Location Tested BP Systolic [...] Weight in lbs Pre/Post Dialysis Refused Weight 291.254892470598 BP Diastolic BP Location Tested BP Systolic BP Type 84 138 Fetus Heart Rate Present Fetus Movement Comments Patient presents to [facility] care. Nausea much improved! Has not needed [...] Type Weight in lbs Pre/Post Dialysis Refused 297.419677819642 BP Diastolic BP Location Tested BP Systolic [...] Type Weight in lbs Pre/Post Dialysis Refused 308.044801869560 BP Diastolic BP Location Tested BP Systolic [...] Type Weight in lbs Pre/Post Dialysis Refused 315.090769911239 BP Diastolic BP Location Tested BP Systolic BP Type 74 L arm 136 sitting Fetus Heart Rate Present A Present Fetus Movement A Yes Comments Patient c/o of slight swelli ng in feet. No bleeding or cramping. Good movement. EFW 59%, ESTHER normal. LVOT and AA seen, needs RVOT and DA still. Will send to [facility] for completion of anatomy US. Discussed gct and labs for next visit. RTC 4 weeks. Flowsheet Date 03/29/2024 March Score Blood Edema Fundus Height Fundus Units Glucose Ketones Leukocytes Nitrite Labor Signs Protein Cervic Dilation Cervic Effacement Cervic Station neg none Type Weight in lbs Pre/Post Dialysis Refused Weight 311.237045086599 BP Diastolic BP Location Tested BP Systolic BP Type 84 L arm 132 sitting Fetus Heart Rate Present A 150 Fetus Movement A Yes Comments Good movement. No cram ping or bleeding. Saw [facility] for completion of anatomy, heart views still suboptimal. Repeat US scheduled 1/2 with [facility]. GCT and labs today. RTC 2 weeks. Need to discuss tdap at next appointment. Flowsheet Date 04/16/2024 March Score Blood Edema Fundus Height Fundus Units Glucose Ketones Leukocytes Nitrite Labor Signs Protein Cervic Dilation Cervic Effacement Cervic Station Type Weight in lbs Pre/Post Dialysis Refused 316.243815073952 BP Diastolic BP Location Tested BP Systolic BP Type 87 L arm 143 sitting Fetus Heart Rate Present A 145 Fetus Movement A Yes Comments Good movement. No cram ping or bleeding. Diagnosed with GDM, started tracking BG yesterday, PP wnl, fasting elevated x1 (125). Discussed diet, order sent for diet teaching. Discussed parameters for starting insulin. Also discussed incomplete anatomy at [facility], recommend echo, order sent. Will start [...] Weight in lbs Pre/Post Dialysis Refused Weight 314.743857142776 BP Diastolic BP Location Tested BP Systolic [...] Weight in lbs Pre/Post Dialysis Refused Weight 316.048712884596 BP Diastolic BP Location Tested BP Systolic [...] Weight in lbs Pre/Post Dialysis Refused Weight 313.471793568183 BP Diastolic BP Location Tested BP Systolic [...] Weight in lbs Pre/Post Dialysis Refused Weight 313.469949443916 BP Diastolic BP Location Tested BP Systolic [...] Weight in lbs Pre/Post Dialysis Refused Weight 313.287919945190 BP Diastolic BP Location Tested BP Systolic [...] Weight in lbs Pre/Post Dialysis Refused Weight 315.84649142052 BP Diastolic BP Location Tested BP Systolic [...] to fasting/PP breakfast glucose in 70s-80s. BPP /, will send to hospital for monitoring and repeat BPP this afternoon. GBS collected. Discussed induction methods for next week. Continue twice weekly testing if extended monitoring wnl today. Flowsheet Date 05/20/2024 March Score Blood Edema Fundus Height Fundus Units Glucose Ketones Leukocytes Nitrite Labor Signs Protein Cervic Dilation Cervic Effacement Cervic Station Type Weight in lbs Pre/Post Dialysis Refused Weight 319.940344270049 BP Diastolic BP Location Tested BP Systolic [...] Weight in lbs Pre/Post Dialysis Refused Weight 316.676330139081 BP Diastolic BP Location Tested BP Systolic [...]
--- OUTSIDE RECORDS SUMMARY | 2024-05-24 16:52 | XMS_ITS | Clinical Summary ---
Author Organization [facility] [place] Address [address] [place] [address] [place] [address] Care Team Providers Care Crucible Furnace Tender Name Role Phone Unavailable Primary Care Provider Unavailabl e Allergies No known active allergies Medications albuterol HFA 90 mcg inhalerIndicatio ns:Sinusitis, unspecified chronicity, unspecified location Take 2 Puffs by inhalation every 6 hours as needed for Shortness of Breath. 18 Gram 0 Active sertraline (Zoloft) 50 mg tabletIndication s:Generalized anxiety disorder,Severe episode of recurrent major depressive disorder, without psychotic features (CMS/HCC) Take 1 Tablet (50 mg) by mouth daily. 30 Tablet 3 1 Active Active Problems Problem Noted Date Diagnosed Date Moderate episode of recurrent major depressive d isorder 08/18/2017 Morbid obesity with BMI of 40.0-44.9, adult 07/06 Estimated Date of Delivery Comme nts Yes 06/15/2024 Encounters Date Type Department Care Team Description 04/29/2024 External Device Data STL ABSTRACTION Provider, Abstract 04/28/2024 External Device Data STL ABSTRACTION Provider, Abstract 04/27/2024 External Device Data [facility] ABSTRACTION Provider, Abstract 04/23/2024 1:30 PM MEAL COOKER - 04/23/2024 11:59 PM MEAL COOKER Hospital Encounter [facility] Pediatric Diag [facility] [facility] [address] [place] [address] Jeovany Smith MD Discharge Disposition: Home or Self Care 04/23/2024 1:30 PM MEAL COOKER Office Visit [facility] [address] [facility] [address] [address] Jeovany Smith MD abnormality affecting management of mother, single or unspecified fetus (Primary Dx) 04/22/2024 9:59 AM MEAL COOKER - 04/22/2024 11:59 PM MEAL COOKER Hospital Encounter [facility] Roseanne Pace [address] [place] [phone] Albert Simmons MD Discharge Disposition: Home or Self Care 04/22/2024 9:58 AM MEAL COOKER - 04/22/2024 11:59 PM MEAL COOKER Hospital Encounter [facility] Roseanne Pace [address] [place] [phone] Bipin Rodríguez MD Discharge Disposition: Home or Self Care 04/22/2024 Orders Only [facility] Maternal and Ground [address] [address] [place] [address] Bipin Rodríguez MD Abnormal findings on screening (Primary Dx) 04/22/2024 Orders Only [facility] Maternal and Ground Floor [address] [place] [address] [address] [place] [address] Albert Simmons MD Abnormal findings on screening (Primary Dx) 04/20/2024 External Device Data STL ABSTRACTION Provider, Abstract 04/09/2024 Telephone [facility] Maternal and Ground Floor [address] [place] [address] [place] [address] Yue John RN Needs Appointment 04/08/2024 3:45 PM MEAL COOKER - 04/08/2024 11:59 PM MEAL COOKER Hospital Encounter [facility] Roseanne Pace [address] [place] [phone] Albert Simmons MD Discharge Disposition: Home or Self Care 03/30/2024 External Device Data ST[facility] ABSTRACTION Provider, Abstract 03/24/2024 8:45 AM MEAL COOKER - 03/24/2024 11:59 PM MEAL COOKER Hospital Encounter [facility] Maternal and Ground Floor [address] [place] [address] [place] [address] Bipin Rodríguez MD Discharge Disposition: Home or Self Care 03/02/2024 Orders Only [facility] M[facility] and Ground Floor S [facility] [address] [facility] [place] [address] Bipin Rodríguez MD Morbid obesity with BMI of 50.0-59.9, adult (CMS/HCC) (Primary Dx) from Last 3 Months Immunizations Immunization Administration Dates Next Due (ADACEL/BOOSTRIX)(10 YR UP) TDAP VACCINE, 0.5ML, IM 10/26/2010 (GARDASIL)(9-45 YRS) HUMAN PAPILLOMAVIRUS VACCINE, TYPES 6, 11, 16, 18, QUADRIVALENT (4VHPV), 3 DOSE, IM 11/08/2011,01/02/2011,10/26/2010 (INFANRIX)(6 WKS-6 YRS) DIPT HERIA, TETANUS TOXOIDS, AND ACCELLULAR PERTUSSIS VACCINE (DTAP), 0.5 ML IM 09/24/2004,03/21/2000,07/23/1999,04/18,02/16/1999 (IPOL)(6 WKS AND UP) POLIOVI DEMAR VACCINE, INACTIVATED (IPV), 3 DOSE, SUBCUT OR IM 09/24/2004,03/21/2000,04/18/1999,02/16 (M-M-R II/PRIORIX)(12 MO UP) MEASLES, MUMPS AND RUBELLA VIRUS VACCINE, 0.5 ML IM/SUBCUT 09/24/2004,12/27/1999 (RECOMBIVAX HB/ENGERIX-B)(0- 19 YRS) HEPATITIS B VACCINE 5 MCG/0.5 ML OR 10 MCG/0.5 ML PED OR ADOL 3 DOSE (PF), IM 12/02/2002,09/10/1999 (VARIVAX)(12 MOS UP)VARICELL A VIRUS VACCINE (PF) 0.5 ML, SUB CUT 02/18/2014,12/10/2013,12/27/1999 Hemophilus influenza b vacci ne (Hib), HbOC conjugate (4 dose schedule), for intramuscular use 03/21/2000,04/18/1999,02/16/1999 Hepatitis B and Haemophilus Influenzae Type B Vaccine (Hib-HepB)IM 07/23/1999 INFLUENZA VACCINE QUADRIVALE NT 6 MOS UP IM 01/20/2019 Influenza Vaccine Tri Split 4+ Im 02/06/2015,05/2008 Meningococcal ACWY Vaccine, Unspecified Formulation 10/26/2010 Meningococcal Polysaccharide Vaccine SQ 2016,03/15/2015 Pneumococcal 7-valent conjug ate vaccine IM 12/02/2002,02/13/2000,12/27/1999 Family History Medical History Relation Name Comments Depression Father Vik Dani Hypertension Father Vik Dani Diabetes Maternal Grandfather Heart Disease Maternal Grandfather Other Maternal Grandmother Fibromy algia, neuropathy Depression Mother Gabriela Quertermouse Diabetes Mother Gabriela Mirtermouse Other Mother Gabriela Artouse Fibromya lgia, neuropathy Diabetes Paternal Grandfather Keyshawn Quertermouse Unknown Paternal Grandfather Keyshawn Mirtermouse Unknown Paternal Grandmother No Known Problems Sister 1 No Known Problems Sister 2 No Known Problems Sister 3 Relation Name Status Comments Father Vik Aquino Alive Maternal Grandfather Alive Maternal Grandmother Alive Mother Gabriela Reaves Alive Paternal Grandfather Keyshawn Artouse Alive Paternal Grandmother Alive Sister 1 Alive Sister 2 Alive Sister 3 Alive Social History Tobacco Use Types Packs/Day Years Used Date Smoking Tobacco: Former Cigarettes 1 1 1 - 01/30/2020 Smokeless Tobacco: Never Alcohol Use Standard Drinks/Week Comments Never 0 (1 standard drink = 0.6 oz pur e alcohol) Estimated Date of Delivery Comme nts Yes 06/15/2024 Sex and Gender Information Value Date Recorded Sex Assigned at Not on file Legal Sex Female 1:16 PM CDT Gender Identity Not on file Sexual Orientation Not on file Last Filed Vital Signs Vital Sign Reading Time Taken Comments Blood Pressure 140/99 04/23/2024 2:26 PM MEAL COOKER Pulse 114 04/23/2024 2:26 PM MEAL COOKER Temperature 36.7 C (98.1 F) 05/24/2021 7:28 AM MEAL COOKER Respiratory Rate 16 05/24/2021 7:28 AM MEAL COOKER Oxygen Saturation 99% 05/24/2021 7:28 AM MEAL COOKER Inhaled Oxygen Concentration - - Weight 122.9 kg (271 lb) 04/23/2024 2:26 PM MEAL COOKER Height 165.1 cm (5' 5 ) 04/23/2024 2:26 PM MEAL COOKER Body Mass Index 45.1 04/23/2024 2:26 PM MEAL COOKER Plan of Treatment Health Maintenance Due Date Last Done Comments CERVICAL CANCER SCREENING 12/21/2019 DTAP/TDAP/TD VACCINES (7 - T d or Tdap) 10/26/2020 10/26/2010, 09/24/2004, 03/21/2000, Additional history exists INFLUENZA VACCINE (#1) 2023 , 01/20/2019, 02/06/2015, Additional history exists HEPATITIS B VACCINES Completed 12/02/2002, 09/10/1999, 07/23/1999 HPV VACCINES Completed 11/08/2011, 12/07, 10/26/2010 RSV VACCINE (60+ or ) (No Doses Required) Completed Procedures Procedure Name Priority Date/Time Associated Diagnosis Comments ECHOCARDIOGRAM 2D W DOPPLER Routine 04/23/2024 2:29 PM MEAL COOKER abnormality affecting management of mother, single or unspecified fetus US OB FOLLOW UP PER FETUS Routine 04/22/2024 11:47 AM MEAL COOKER Obesity affecting in third trimester, unspecified obesity type screening encounter ECHO 2D + COLOR FLOW VELOCITY Routine 04/22/2024 11:47 AM MEAL COOKER Encounter for screening for malformation US OB FOLLOW UP PER FETUS Routine 04/08/2024 4:32 PM MEAL COOKER Obesity affecting in third trimester, unspecified obesity type screening encounter US OB DETAIL SINGLE GEST Routine 03/24/2024 10:18 AM MEAL COOKER Obesity during , antepartum screening for malformation using ultrasonics from Last 3 Months Results * ECHOCARDIOGRAM 2D W DOPPLER (04/23/2024 2:29 PM MEAL COOKER) 04/23/2024 1:47 PM MEAL COOKER Narrative INTERFACE SYSTEM - 04/25/2024 6:39 AM MEAL COOKER *[facility]* Echocardiogram Report Complete 2D, complete spectral Doppler, and color Doppler PATIENT: Rochelle Aquino *STUDY DATE/TIME:* Apr 23 2024 1:47PM *HEIGHT:* 165.1cm / (65in) /AGE: 09 2000 / 23year(s) *WEIGHT:* 122.9kg / (271lb) GENDER: F *BSA/BMI:* 2.25m^2 / 45.1kg/m^2 *BP:* 140 / 99 *IMAGING FACILITY:[facility] *REFERRING PHYSICIAN:Stefany Grimaldo M.D. *ORDERING PROVIDER:Juwan Smith M.D. *READING PHYSICIAN:Juwan Smith M.D. REASON FOR EXAM: Abnormal ultrasound. STUDY AND PROCEDURE DATA: echocardiography, initial or complete study. Institution: [facility]. Procedure: Transabdominal echocardiogram was performed for congenital heart disease evaluation. Views were limited by position. Expected delivery date: Estimated delivery date: 06/15/2024. Gestational age: 32wk. CONCLUSIONS: 2-DIMENSIONAL STUDY. Technically very difficult study because of body habitus and unfavorable position Single gestation with lie in cephalic presentation. All four cardiac chambers were visualized. The cardiac chambers were balanced in size. All four cardiac valves were visualized and appeared normal. The interventricular septum appeared intact. A stretched patent foramen ovale seen . Both great arteries were visualized ,were normal in size and were normally related. No pericardial effusion was seen. No pleural effusion seen. No ascites seen. No mass is seen around the heart. The heart appeared to be located in the normal position in the chest. Pulmonary venous drainage, systemic venous drainage, and aortic arch could not be well visualized but most likely normal No diaphragmatic hernias seen. Normal 3 vessel cord. COLOR FLOW DOPPLER ECHOCARDIOGRAM: No turbulence, insufficiency seen across the aortic, pulmonary, mitral or tricuspid valve. Normal right -to-left shunt across foramen ovale and ductus arteriosus. PULSE AND CONTINUOUS WAVE DOPPLER: Pulse and continuous wave Doppler confirmed the above finding. M-MODE ECHOCARDIOGRAM: No arrhythmia seen. The heart rate was 138 /min with 1:1 conduction. IMPRESSION: Technically very difficult study. Images obtained were suboptimal No clear cut structural or functional cardiac abnormality is seen. The heart is in normal position. Visceral-atrial situs, ventricular situs, and relationship of great arteries are normal. Patent ductus arteriosus is visualized with normal shunting. Right to left. No pericardial effusion is seen. No pleural effusion seen. No ascites seen. No arrhythmia is seen. Limitation of echocardiography explained. FINDINGS: DESCRIPTION One fetus is present. lie in Cephalic-presentation. Measurements Value Femur length 6.33 cm Biparietal diam 8.54 cm Head circum 30.25 cm Card circum 11.56 cm Thorac circum 25.93 cm Abdominal circum 31.37 cm CC/TC 0.45 Femur/BPD 0.74 Legend: (L) and (H) deanna values outside specified reference range. Interpreted and electronically signed by Jeovany Smith M.D. 04/25/2024 06:39 Procedure Note Jeovany Smith MD - 04/25/2024 *[facility]* Echocardiogram Report Complete 2D, complete spectral Doppler, and color Doppler PATIENT: Rochelle Aquino *STUDY DATE/TIME:* Apr 2323176:47PM *HEIGHT:* 165.1cm / (65in) /AGE: 09 2000 / 23year(s) *WEIGHT:* 122.9kg / (271lb) GENDER: F *BSA/BMI:* 2.25m^2 / 45.1kg/m^2 *BP:* 140 / 99 *IMAGING FACILITY:[facility] *REFERRING PHYSICIAN:* Stefany Napier M.D. *ORDERING PROVIDER:* Jeovany Smith M.D. *READING PHYSICIAN:* Jeovany Smith M.D. REASON FOR EXAM: Abnormal ultrasound. STUDY AND PROCEDURE DATA: echocardiography, initial or completestudy. Institution: [facility]. Procedure: Transabdominal fetalechocardiogram was performed for congenital heart disease evaluation. Views were limitedby position. Expected delivery date: Estimated delivery date: 06/15/2024. Gestational age: 32wk. CONCLUSIONS: 2-DIMENSIONAL STUDY. Technically very difficult study because of body habitus and unfavorablefetal position Single gestation with lie in cephalic presentation. All fourcardiac chambers were visualized. The cardiac chambers were balanced in size.All four cardiac valves were visualized and appeared normal. The interventricular septum appeared intact. A stretched patent foramenovale seen . Both great arteries were visualized ,were normal in size and were normally related. No pericardial effusion was seen. No pleural effusion seen. No ascites seen. No mass is seen around the heart. The heart appeared to be located in the normal position in the chest. Pulmonary venous drainage, systemic venous drainage, and aortic arch could not be well visualized but most likely normal No diaphragmatic hernias seen.Normal 3 vessel cord. COLOR FLOW DOPPLER ECHOCARDIOGRAM: No turbulence, insufficiency seen across the aortic, pulmonary, mitralor tricuspid valve. Normal right -to-left shunt across foramen ovale and ductus arteriosus. PULSE AND CONTINUOUS WAVE DOPPLER: Pulse and continuous wave Doppler confirmed the above finding. M-MODE ECHOCARDIOGRAM: No arrhythmia seen. The heart rate was 138 /min with 1:1conduction. IMPRESSION: Technically very difficult study. Images obtained were suboptimal No clear cut structural or functional cardiac abnormality is seen. The heart is in normal position. Visceral-atrial situs, ventricularsitus, and relationship of great arteries are normal. Patent ductus arteriosus is visualized with normal shunting. Right toleft. No pericardial effusion is seen. No pleural effusion seen. No ascites seen. No arrhythmia is seen. Limitation of echocardiography explained. FINDINGS: DESCRIPTION One fetus is present. lie in Cephalic-presentation. Measurements Value Femur length 6.33 cm Biparietal diam 8.54 cm Head circum 30.25 cm Card circum 11.56 cm Thorac circum 25.93 cm Abdominal circum 31.37 cm CC/TC 0.45 Femur/BPD 0.74 Legend: (L) and (H) deanna values outside specified reference range. Interpreted and electronically signed by Jeovany Smith M.D. 04/25/2024 06:39 us Jeovany Smith MD US ORDERABLES Final Result INTERFACE SYSTEM Refer to clinic/hospital department * US OB FOLLOW UP PER FETUS (04/22/2024 11:47 AM MEAL COOKER) Only the most recent of2 resultswithin the time period is included. Anatomical Region Laterality Modality Pelvis Ultrasound 04/22/2024 10:1 1 AM MEAL COOKER Narrative 04/22/2024 11:51 AM MEAL COOKER STL FOLLOW UP ----- Pat. Name: ROCHELLE AQUINO Study Date: 04/22/2024 10:11am Pat. NO: [id number] Referring MD: BIPIN RODRÍGUEZ MD Site: [facility] [employer] Grinder: Jailene Hassan RDMS : 2000 Age: 23 ----- INDICATION ----- Maternal Obesity (BMI>40) Complicating CODING ----- Diagnoses Z3A.32: Weeks of gestation O99.213: Obesity complicating Procedures 91291: Ultrasound, uterus, real time with image documentation, follow up, transabdominal approach per fetus 41941: Echocardiography, , cardiovascular system, real time with image documentation (2D), with or without M-mode recording 75843: Doppler echocardiography color flow velocity mapping 08171: Doppler echocardiography, , cardiovascular system, pulsed wave and/or continuous wave with spectral display; complete MATERNAL ASSESSMENT ----- Physical Exam Initial weight 315 lb METHOD ----- Transabdominal ultrasound examination ----- Ayala . Number of fetuses: 1 DATING ----- Prior assessment on: 06/15/2024 GA by prior assessment 32 w + 2 d RONALD by prior assessment: 06/15/2024 Ultrasound examination on: 04/22/2024 GA by U/S based upon: AC, BPD, EFW, Femur, HC GA by U/S 35 w + 0 d RONALD by U/S: 05/27/2024 Method of dating: Restore dating from previous exam Assigned: based on stated RONALD (on 06/15/2024), selected on 03/24/2024 Assigned GA 32 w + 2 d Assigned RONALD: 06/15/2024 BIOMETRY ----- BPD 87.3 mm 35w 2d 98% Hadlock OFD 111.8 mm 37w 6d >99% Tito HC 317.3 mm 35w 5d 92% Hadlock AC 314.2 mm 35w 2d >99% Hadlock Femur 65.7 mm 33w 6d 79% Hadlock HC / AC 1.01 22% Nicolaides Weight Calculation: EFW 2,562 g 34w 6d 98% Hadlock EFW (lb,oz) 5 lb 10 oz EFW by Hadlock ([id number]) Head / Face / Neck Biometry: Manager Compensation 4.1 mm Thorax / Lungs Biometry: Thoracic circ 262.1 mm 95% [place] Thoracic area 54.4 cm ThC / AC 0.83 Heart / Great Vessels Biometry: Cardiac axis 43 Cardiac circ 140.6 mm Cardiac area 15.4 cm CC / ThC 0.54 CA / Mary 0.28 PA main 5.8 mm Ductus art. 3.7 mm 8% Ferguson Rt PA branch 3.1 mm Lt PA branch 2.9 mm IVC 5.2 mm SVC 5.1 mm Extremities / Bony Struc Biometry: FL / BPD 0.75 FL / HC 0.21 FL / AC 0.21 GENERAL EVALUATION ----- Cardiac activity present. FHR 142 bpm. movements: present. Presentation: cephalic Placenta: Placental site: posterior Umbilical cord: Cord vessels: 3 vessel cord. Insertion site: placental insertion: normal Amniotic fluid: Amount of AF: normal amount. MVP 6.2 cm. ESTHER 22.4 cm. Q1 6.1 cm, Q2 5.3 cm, Q3 4.8 cm, Q4 6.2 cm ECHOCARDIOGRAM ----- Situs situs solitus (normal) Cardiac position levocardia (normal) Cardiac axis normal Cardiac size normal (approx. 1/3 of thoracic area) Cardiac rhythm regular (normal) 4-chamber view normal LVOT view suboptimal RVOT view normal 3-vessel view suboptimal 1-fnvnyv-skjfuzz view normal High short axis view normal Low short axis view normal Aortic arch view suboptimal Ductal arch view normal Bicaval view normal Venous-atrial connections normal size and morphology AV connections normal alignment VA connections normal size and morphology IVC Normal SVC Normal Pulmonary veins normal size and morphology Right atrium Normal Left atrium Normal Atrial septum normal size and morphology Foramen ovale normal (in the central third/half, flap valve in left atrium) Right ventricle Normal Left ventricle Normal Ventricular septum normal size and morphology Tricuspid valve normal size and morphology Mitral valve normal size and morphology Pulmonary valve normal size and morphology Cross-over gr. arteries anterior great artery (confirmed to be the pulmonary artery by its branching) which crosses the course of the proximal aorta, indicative of normal relationship of the great arteries Main PA the main pulmonary artery can be seen bifurcating into the arterial duct and the right pulmonary artery Pulmonary arteries Normal Ductal arch Normal Ductus venosus Normal Echogenic focus no Linear insertion of AV valves no Pericardial effusion no Cardiac Biometry: RA width diast 15.9 mm RV width diast 13.5 mm 38% Ferguson RV wall diast 3.9 mm >99% Ferguson LA width diast 14.3 mm LV width diast 14.4 mm 64% Ferguson LV wall diast 3.2 mm 70% Ferguson IV Septum diast 3.5 mm 83% Ferguson LVOT diam 4.3 mm LVOT area 15.0 mm TV annulus diast 8.9 mm PV annulus syst 7.3 mm MV annulus diast 10.0 mm AoV annulus syst 6.2 mm MV annulus diast / TV annulus diast 1.12 AoV annulus syst / PV annulus syst 0.85 Heart Z-Scores: Z- FL Z- BPD Z- GA Zscore by RV width diast 13.5 mm -0.19 -0.14 0.13 Pulido LV width diast 14.4 mm 0.59 0.68 0.94 Pulido TV annulus 8.9 mm -1.82 -1.73 -1.42 Pulido diast MV annulus 10.0 mm -0.37 -0.24 0.06 Pulido diast PV annulus syst 7.3 mm 0.51 0.50 0.84 Pulido AoV annulus 6.2 mm 0.97 0.91 1.19 Pulido syst PA main 5.8 mm -1.55 -1.71 -1.27 Ashok Ductus art. 3.7 mm -0.71 -0.42 -0.39 Ashok Rt PA branch 3.1 mm -1.03 -0.93 -0.77 Ashok Lt PA branch 2.9 mm -0.97 -0.78 -0.64 Ashok IVC 5.2 mm 1.45 1.43 1.65 Ashok Cardiac Doppler: Tricuspid Valve: E-wave 52.11 cm/s 90% Hecher A-wave 79.45 cm/s 99% Hecher E / A 0.66 11% Hecher Mitral Valve: E-wave 47.41 cm/s 96% Hecher A-wave 65.78 cm/s 95% Hecher E / A 0.72 50% Hecher Pulmonary Valve: Vmax 101.66 cm/s >99% Radha DOPPLER ----- Aortic Isthmus: PS 148.59 cm/s Ductus Arteriosus: PS 137.54 cm/s ANATOMY ----- The following structures appear normal: Head / Neck Cranium. Lateral ventricles. Cavum septi pellucidi. Heart / Thorax 4-chamber view. RVOT view. 5-olnxur-cayadhu view. Diaphragm. Abdomen Stomach. Kidneys. Bladder. The following structures could not be adequately visualized: Face Palate. Heart / Thorax LVOT view. 3-vessel view. GROWTH OVERVIEW ----- Exam date GA BPD (mm) HC (mm) AC (mm) FL (mm) HL (mm) EFW (g) 03/24/2024 28w 1d 78.2 >99% 276.6 82% 265.4 97% 57.0 83% 1,572 98% 04/22/2024 32w 2d 87.3 98% 317.3 92% 314.2 >99% 65.7 79% 2,562 98% COMMENT ----- Patient's name and date of were verified by the machine clothing worker prior to the exam IMPRESSION ----- -Single living fetus with a gestational age of 32w 2d based on the reported dates. -cephalic presentation. -The EFW is 2562 g which is at the 98%. The abdominal circumference is at the >99%. The size is measuring large for gestational age. -Suboptimal anatomy as noted in the report. -The amniotic fluid is normal for gestational age. (ESTHER of 22.4 cm, MVP of 6.2 cm) -The placenta is posterior A screening echocardiogram was performed secondary to concern for incomplete visualized of the anatomy. The cardiac size is appropriate. Normal situs and cardiac position. Atria and ventricles appear normal in size and shape. The cardiac septum appears intact to extent of views. There is right to left flow through the foramen ovale. Normal rhythm on m-mode. The peak systolic velocity appears elevated in the AA and DA. The LVOT and RVOT are suboptimally visualized. The ultrasound findings and limitations were reviewed with the patient via telephone. A echocardiogram cannot rule out all anomalies. For example, small VSD or ASD, subtle valve abnormalities, subtle abnormalities of the great vessels (aorta and pulmonary artery), or total anomalous pulmonary venous return may go undetected. echocardiogram can also not assess abnormalities such as patent foramen ovale or patent ductus arteriosus. Assessment with pediatric cardiology is recommended and this will be arranged for the patient. Recommend follow up growth in 4 weeks. Thank you for allowing us to participate in the care of this patient. Procedure Note Zeeshan Chavez MD / Albert Simmons MD - 04/22/2024 STL FOLLOW UP ----- Pat. Name:Pepe AQUINO Date:04/22/2024 10:11am Pat. NO: [id number] MD:BIPIN RODRÍGUEZ [facility]Jailene Hassan RDMS :2000Age:23 ----- INDICATION ----- Maternal Obesity (BMI>40) Complicating CODING ----- Diagnoses Z3A.32: Weeks of gestation O99.213: Obesity complicating Procedures 39538: Ultrasound, uterus, real time withimage documentation, follow up, transabdominal approach per fetus 39968: Echocardiography, , cardiovascularsystem, real time with image documentation (2D), with or without M-mode recording 30301: Doppler echocardiography color flowvelocity mapping 61695: Doppler echocardiography, ,cardiovascular system, pulsed wave and/or continuous wave with spectral display; complete MATERNAL ASSESSMENT ----- Physical Exam Initial weight 315 lb METHOD ----- Transabdominal ultrasound examination ----- Ayala . Number of fetuses: 1 DATING ----- Prior assessment on:06/15/2024 GA by prior [id number] w + 2 d RONALD by prior assessment:06/15/2024 Ultrasound examination on:04/22/2024 GA by U/S based upon:AC, BPD, EFW, Femur, HC GA by U/S35 w + 0 d RONALD by U/S:05/27/2024 Method of dating:Restore dating from previous exam Assigned:based on stated RONALD (on 06/15/2024), selected on 03/24/2024 Assigned GA32 w + 2 d Assigned RONALD:06/15/2024 BIOMETRY ----- BPD 87.3 mm 35w 2d 98%Hadlock OFD 111.8 mm 37w 6d >99%Tito HC 317.3 mm 35w 5d 92%Hadlock AC 314.2 mm 35w 2d >99%Hadlock Femur 65.7 mm 33w 6d 79%Hadlock HC / AC 1.01 22%Nicolaides Weight Calculation: EFW 2,562 g 34w 6d98% Hadlock EFW (lb,oz) 5 lb 10 oz EFW by Hadlock ([id number]) Head / Face / Neck Biometry: Manager Compensation 4.1mm Thorax / Lungs Biometry: Thoracic circ 262.1 mm 95%[place] Thoracic area 54.4 cm ThC / AC 0.83 Heart / Great Vessels Biometry: Cardiac axis 43 Cardiac circ 140.6mm Cardiac area 15.4cm CC / ThC 0.54 CA / Mary 0.28 PA main 5.8 mm Ductus art. 3.7 mm8% Ferguson Rt PA branch 3.1 mm Lt PA branch 2.9 mm IVC 5.2mm SVC 5.1mm Extremities / Bony Struc Biometry: FL / BPD 0.75 FL / HC 0.21 FL / AC 0.21 GENERAL EVALUATION ----- Cardiac activity present. FHR 142 bpm. movements: present.Presentation: cephalic Placenta: Placental site: posterior Umbilical cord: Cord vessels: 3 vessel cord. Insertion site: placentalinsertion: normal Amniotic fluid: Amount of AF: normal amount. MVP 6.2 cm. ESTHER 22.4 cm. Q16.1 cm, Q2 5.3 cm, Q3 4.8 cm, Q4 6.2 cm ECHOCARDIOGRAM ----- Situs situs solitus (normal) Cardiac position levocardia (normal) Cardiac axis normal Cardiac size normal (approx. 1/3 ofthoracic area) Cardiac rhythm regular (normal) 4-chamber view normal LVOT view suboptimal RVOT view normal 3-vessel view suboptimal 8-ajhdtu-gnjixal view normal High short axis view normal Low short axis view normal Aortic arch view suboptimal Ductal arch view normal Bicaval view normal Venous-atrial connections normal size and morphology AV connections normal alignment VA connections normal size and morphology IVC Normal SVC Normal Pulmonary veins normal size and morphology Right atrium Normal Left atrium Normal Atrial septum normal size and morphology Foramen ovale normal (in the centralthird/half, flap valve in left atrium) Right ventricle Normal Left ventricle Normal Ventricular septum normal size and morphology Tricuspid valve normal size and morphology Mitral valve normal size and morphology Pulmonary valve normal size and morphology Cross-over gr. arteries anterior great artery(confirmed to be the pulmonary artery by its branching) which crosses the course of theproximal aorta, indicative of normal relationship of the great arteries Main PA the main pulmonary artery canbe seen bifurcating into the arterial duct and the right pulmonary artery Pulmonary arteries Normal Ductal arch Normal Ductus venosus Normal Echogenic focus no Linear insertion of AV valves no Pericardial effusion no Cardiac Biometry: RA width diast 15.9 mm RV width diast 13.5 mm 38%Ferguson RV wall diast 3.9 mm >99%Ferguson LA width diast 14.3 mm LV width diast 14.4 mm 64%Ferguson LV wall diast 3.2 mm 70%Ferguson IV Septum diast 3.5 mm83% Ferguson LVOT diam 4.3mm LVOT area 15.0mm TV annulus diast 8.9mm PV annulus syst 7.3mm MV annulus diast 10.0mm AoV annulus syst 6.2mm MV annulus diast / TV annulus diast 1.12 AoV annulus syst / PV annulus syst 0.85 Heart Z-Scores: Z- FL Z- BPDZ- GA Zscore by RV width diast 13.5 mm -0.19 -0.140.13 Pulido LV width diast 14.4 mm 0.59 0.680.94 Pulido TV annulus 8.9 mm -1.82 -1.73-1.42 Pulido diast MV annulus 10.0 mm -0.37 -0.240.06 Pulido diast PV annulus syst 7.3 mm 0.51 0.500.84 Pulido AoV annulus 6.2 mm 0.97 0.911.19 Pulido syst PA main 5.8 mm -1.55 -1.71-1.27 Pulido Ductus art. 3.7 mm -0.71 -0.42-0.39 Pulido Rt PA branch 3.1 mm -1.03 -0.93-0.77 Pulido Lt PA branch 2.9 mm -0.97 -0.78-0.64 Pulido IVC 5.2 mm 1.45 1.431.65 Pulido Cardiac Doppler: Tricuspid Valve: E-wave 52.11 cm/s90% Hecher A-wave 79.45 cm/s99% Hecher E / A 0.6611% Hecher Mitral Valve: E-wave 47.41 cm/s96% Hecher A-wave 65.78 cm/s95% Hecher E / A 0.7250% Hecher Pulmonary Valve: Vmax 101.66 cm/s>99% Radha DOPPLER ----- Aortic Isthmus: PS 148.59 cm/s Ductus Arteriosus: PS 137.54cm/s ANATOMY ----- The following structures appear normal: Head / Neck Cranium. Lateral ventricles. Cavum septipellucidi. Heart / Thorax 4-chamber view. RVOT view. 5-qwzvtx-metmpfvaobf. Diaphragm. Abdomen Stomach. Kidneys. Bladder. The following structures could not be adequately visualized: Face Palate. Heart / Thorax LVOT view. 3-vessel view. GROWTH OVERVIEW ----- Exam date GA BPD (mm) HC (mm) AC (mm)FL (mm) HL (mm) EFW (g) 03/24/2024 28w 1d 78.2 >99% 276.6 82% 265.4 97%57.0 83% 1,572 98% 04/22/2024 32w 2d 87.3 98% 317.3 92% 314.2 >99%65.7 79% 2,562 98% COMMENT ----- Patient's name and date of were verified by the machine clothing worker prior tothe exam IMPRESSION ----- -Single living fetus with a gestational age of 32w 2d based on thereported dates. -cephalic presentation. -The EFW is 2562 g which is at the 98%. The abdominal circumference is atthe >99%. The size is measuring large for gestational age. -Suboptimal anatomy as noted in the report. -The amniotic fluid is normal for gestational age. (ESTHER of 22.4 cm, MVP of6.2 cm) -The placenta is posterior A screening echocardiogram was performed secondary to concern forincomplete visualized of the anatomy. The cardiac size is appropriate. Normal situs and cardiac position. Atria and ventricles appear normal in size and shape. The cardiac septumappears intact to extent of views. There is right to left flow through the foramen ovale. Normal rhythm on m-mode. The peak systolic velocity appears elevated in the AA and DA. The LVOT andRVOT are suboptimally visualized. The ultrasound findings and limitations were reviewed with the patient viatelephone. A echocardiogram cannot rule out all anomalies. For example, smallVSD or ASD, subtle valve abnormalities, subtle abnormalities of the great vessels (aorta and pulmonary artery), or totalanomalous pulmonary venous return may go undetected. echocardiogram can also not assess abnormalities such aspatent foramen ovale or patent ductus arteriosus. Assessment with pediatric cardiology is recommended and this will bearranged for the patient. Recommend follow up growth in 4 weeks. Thank you for allowing us to participate in the care of this patient. us Albert Simmons MD ORDERABLES Edited Result - Final * ECHO 2D + COLOR FLOW VELOCITY (04/22/2024 11:47 AM MEAL COOKER) Narrative 04/22/2024 11:47 AM MEAL COOKER Order information only. Exam was auto-finalized. us Bipni Rodríguez MD US ORDERABLES Final Result * US OB DETAIL SINGLE GEST (03/24/2024 10:18 AM MEAL COOKER) Anatomical Region Laterality Modality Pelvis Ultrasound 03/24/2024 9:03 AM MEAL COOKER Narrative 03/24/2024 10:22 AM MEAL COOKER STL COMP ----- Pat. Name: ROCHELLE AQUINO Study Date: 03/24/2024 9:03am Pat. NO: [id number] Referring MD: BIPIN RODRÍGUEZ MD Site: [facility] Computer Numerical Control Grinder: Vika Esquivel RDMS, RVT : 2000 Age: 23 ----- INDICATION ----- Anatomy Survey Maternal Obesity (BMI>40) Complicating CODING ----- Diagnoses Z3A.28: Weeks of gestation O99.213: Obesity complicating Z36.3: Encounter for screening for malformations Procedures 24767: Ultrasound, uterus, real time with image documentation, and maternal evaluation plus detailed anatomic examination, transabdominal approach MATERNAL ASSESSMENT ----- Physical Exam Initial weight 315 lb METHOD ----- Transabdominal ultrasound examination ----- Ayala . Number of fetuses: 1 DATING ----- Method of dating: based on stated RONALD Prior assessment on: 06/15/2024 GA by prior assessment 28 w + 1 d RONALD by prior assessment: 06/15/2024 Ultrasound examination on: 03/24/2024 GA by U/S based upon: AC, BPD, EFW, Femur, HC GA by U/S 30 w + 3 d RONALD by U/S: 05/30/2024 Assigned: based on stated RONALD (on 06/15/2024), selected on 03/24/2024 Assigned GA 28 w + 1 d Assigned RONALD: 06/15/2024 BIOMETRY ----- BPD 78.2 mm 31w 3d >99% Hadlock OFD 96.3 mm 31w 1d 98% Tito HC 276.6 mm 30w 2d 82% Hadlock Cerebellum tr 36.7 mm 31w 5d 98% Araiza AC 265.4 mm 30w 5d 97% Hadlock Femur 57.0 mm 29w 6d 83% Hadlock HC / AC 1.04 18% Nicolaides Weight Calculation: EFW 1,572 g 30w 0d 98% Hadlock EFW (lb,oz) 3 lb 7 oz EFW by Hadlock ([id number]) Head / Face / Neck Biometry: Manager Compensation 6.7 mm CM 7.1 mm 62% Nicolaides Outer IOD 47.3 mm 29w 5d 63% Tito Extremities / Bony Struc Biometry: FL / BPD 0.73 FL / HC 0.21 FL / AC 0.21 GENERAL EVALUATION ----- Cardiac activity present. movements: present. Presentation: cephalic Placenta: Placental site: posterior Umbilical cord: Cord vessels: 3 vessel cord. Insertion site: placental insertion: normal Amniotic fluid: Amount of AF: normal amount. MVP 5.1 cm. ESTHER 12.2 cm. Q1 3.4 cm, Q2 3.8 cm, Q3 0.0 cm, Q4 5.1 cm ANATOMY ----- The following structures appear normal: Head / Neck Cranium. Lateral ventricles. Choroid plexus. Midline falx. Cavum septi pellucidi. Cerebellum. Cisterna magna. Face Lips. Profile. Nose. Orbits. Heart / Thorax 4-chamber view. LVOT view. 3-vessel view. 3-urcurp-hweqwqj view. Situs. High short axis view. Cardiac rhythm. Diaphragm. Abdomen Abdominal wall. Cord insertion. Stomach. Kidneys. Bladder. Genitals. Spine Thoracic spine. Extremities / Right forearm. Right hand. Left arm. Left hand. Legs. Right foot. Left foot. Skeleton The following structures could not be adequately visualized: Face Palate. Heart / Thorax RVOT view. Aortic arch view. Ductal arch view. Superior vena cava. Inferior vena cava. Spine Cervical spine. Lumbar spine. Sacral spine. Extremities / Right upper arm. Skeleton MATERNAL STRUCTURES ----- Cervix Visualized Approach - Transabdominal Right Ovary Not visualized Left Ovary Not visualized GROWTH OVERVIEW ----- Exam date GA BPD (mm) HC (mm) AC (mm) FL (mm) HL (mm) EFW (g) 03/24/2024 28w 1d 78.2 >99% 276.6 82% 265.4 97% 57.0 83% 1,572 98% COMMENT ----- Patient's name and date of were verified by the machine clothing worker before the exam IMPRESSION ----- - Intrauterine at 28w 1d based on the reported dates. - The estimated weight is 1572 g which is at the 98% percentile. - The visualized anatomy appears unremarkable to the extent of ultrasound views. - Suboptimal anatomy: spine, RVOT, DA, AA, bicaval view, palate - The placenta is posterior without concern for previa or low-lying placenta. - Amniotic fluid amount is normal for gestational age. (MVP of 5.1 cm) The ultrasound findings and limitations were discussed with patient. An anatomic survey cannot rule out all abnormalities, including structural, chromosome or genetic. The patient was referred to the [facility] for suboptimal anatomy on an outside scan- specifically the DA and RVOT. Both of those views are suboptimal today. Follow up sonogram in 2 weeks to reassess anatomy. If unable to complete cardiac views, consider a echocardiogram with pediatric cardiology. For elevated BMI, recommend growth q4 weeks and testing starting at 36 weeks. ADDENDUM ----- Added referring provider. Procedure Note Albert Simmons MD - 03/24/2024 STL COMP ----- Pat. Name:Pepe AQUINO Date:03/24/2024 9:03am Pat. NO: [id number] :BIPIN RODRÍGUEZ MD [facility]:Vika Esquivel RDMS, RVT :2000Age:23 ----- INDICATION ----- Anatomy Survey Maternal Obesity (BMI>40) Complicating CODING ----- Diagnoses Z3A.28: Weeks of gestation O99.213: Obesity complicating Z36.3: Encounter for screening formalformations Procedures 00635: Ultrasound, uterus, real time withimage documentation, and maternal evaluation plus detailed anatomic examination,transabdominal approach MATERNAL ASSESSMENT ----- Physical Exam Initial weight 315 lb METHOD ----- Transabdominal ultrasound examination ----- Ayala . Number of fetuses: 1 DATING ----- Method of dating:based on stated RONALD Prior assessment on:06/15/2024 GA by prior [id number] w + 1 d RONALD by prior assessment:06/15/2024 Ultrasound examination on:03/24/2024 GA by U/S based upon:AC, BPD, EFW, Femur, HC GA by U/S30 w + 3 d RONALD by U/S:05/30/2024 Assigned:based on stated RONALD (on 06/15/2024), selected on 03/24/2024 Assigned GA28 w + 1 d Assigned RONALD:06/15/2024 BIOMETRY ----- BPD 78.2 mm 31w 3d>99% Hadlock OFD 96.3 mm 31w 1d98% Tito HC 276.6 mm 30w 2d82% Hadlock Cerebellum tr 36.7 mm 31w 5d98% Araiza AC 265.4 mm 30w 5d97% Hadlock Femur 57.0 mm 29w 6d83% Hadlock HC / AC 1.04 18%Nicolaides Weight Calculation: EFW 1,572 g 30w 0d98% Hadlock EFW (lb,oz) 3 lb 7 oz EFW by Hadlock ([id number]) Head / Face / Neck Biometry: Manager Compensation 6.7 mm CM 7.1 mm 62%Nicolaides Outer IOD 47.3 mm 29w 5d 63%Tito Extremities / Bony Struc Biometry: FL / BPD 0.73 FL / HC 0.21 FL / AC 0.21 GENERAL EVALUATION ----- Cardiac activity present. movements: present. Presentation:cephalic Placenta: Placental site: posterior Umbilical cord: Cord vessels: 3 vessel cord. Insertion site: placentalinsertion: normal Amniotic fluid: Amount of AF: normal amount. MVP 5.1 cm. ESTHER 12.2 cm. Q13.4 cm, Q2 3.8 cm, Q3 0.0 cm, Q4 5.1 cm ANATOMY ----- The following structures appear normal: Head / Neck Cranium. Lateral ventricles. Choroid plexus.Midline falx. Cavum septi pellucidi. Cerebellum. Cisterna magna. Face Lips. Profile. Nose. Orbits. Heart / Thorax 4-chamber view. LVOT view. 3-vessel view.5-ardgzx-aibgxjx view. Situs. High short axis view. Cardiac rhythm. Diaphragm. Abdomen Abdominal wall. Cord insertion. Stomach. Kidneys.Bladder. Genitals. Spine Thoracic spine. Extremities / Right forearm. Right hand. Left arm. Left hand.Legs. Right foot. Left foot. Skeleton The following structures could not be adequately visualized: Face Palate. Heart / Thorax RVOT view. Aortic arch view. Ductal arch view.Superior vena cava. Inferior vena cava. Spine Cervical spine. Lumbar spine. Sacral spine. Extremities / Right upper arm. Skeleton MATERNAL STRUCTURES ----- Cervix Visualized Approach - Transabdominal Right Ovary Not visualized Left Ovary Not visualized GROWTH OVERVIEW ----- Exam date GA BPD (mm) HC (mm) AC (mm)FL (mm) HL (mm) EFW (g) 03/24/2024 28w 1d 78.2 >99% 276.6 82% 265.4 97%57.0 83% 1,572 98% COMMENT ----- Patient's name and date of were verified by the machine clothing worker beforethe exam IMPRESSION ----- - Intrauterine at 28w 1d based on the reported dates. - The estimated weight is 1572 g which is at the 98% percentile. - The visualized anatomy appears unremarkable to the extent ofultrasound views. - Suboptimal anatomy: spine, RVOT, DA, AA, bicaval view, palate - The placenta is posterior without concern for previa or low-lyingplacenta. - Amniotic fluid amount is normal for gestational age. (MVP of 5.1 cm) The ultrasound findings and limitations were discussed with patient. An anatomic survey cannot rule out all abnormalities, includingstructural, chromosome or genetic. The patient was referred to the [facility] for suboptimal anatomy on an outsidescan- specifically the DA and RVOT. Both of those views are suboptimal today. Follow up sonogram in 2 weeks to reassess anatomy. If unable to completecardiac views, consider a echocardiogram with pediatric cardiology. For elevated BMI, recommend growth q4 weeks and testing startingat 36 weeks. ADDENDUM ----- Added referring provider. us Bipin Rodríguez MD ORDERABLES Edited Result - Final from Last 3 Months Insurance [employer] CHOICE POS II * Guarantor: [employer] Account Type Relation to Patient Date of Phone Billing Address Corporate Employer ATTN: ALEX ANDRES [id number] [address]
--- OUTSIDE RECORDS SUMMARY | 2024-05-24 16:52 | XMS_ITS | Referral Summary ---
Author Organization [facility] Address [address] [place] [address] Care Team Providers Care Survival Specialist Name Role Phone Jovanny Montenegro MD Primary Care Provider [phone] Allergies No known active allergies Medications albuterol [...] 03/05 Assessment & Plan (03/05/2021 2:01 PM LINUX PROGRAMMER): Results for orders placed or performed in [...] 03/05/2021 Assessment & Plan (03/05/2021 1:44 PM LINUX PROGRAMMER): Encouraged patient to take daily antihistamine and avoid exposure to known irritants/animals. Encounter for medical examination to establish c are 03/05/2021 Assessment & Plan (03/05/2021 2:01 PM LINUX PROGRAMMER): Preventive exam; reviewed recommended preventive screenings and vaccinations. Declines annual flu vaccine. Wear sunscreen/protective clothing when outdoors. No concerns for STI and declines testing. Will request pap results from [facility] office. 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 Assessment & Plan (06/20/2021 1:52 PM CDT): Stable on current medication regimen, sertraline 50 mg daily. No changes made today. We will continue to monitor. Assessment & Plan (03/05/2021 2:00 PM LINUX PROGRAMMER): Depression well controlled with sertraline. Medication refilled. [...] monitor. Assessment & Plan (05/24/2021 9:37 AM LINUX PROGRAMMER): Discussed healthy diet and importance of regular physical activity. Assessment & Plan (03/05/2021 1:38 PM LINUX PROGRAMMER): Discussed healthy diet and importance of regular physical activity. Primary hypertriglyceridemia 08/13/2010 Resolved Problems Problem Noted Date Diagnosed Date Resolved Date Lipid screening 03/05/2021 03/05/2021 Encounter for screening for diabetes mellitus 03/05/20 21 03/05/2021 Assessment & Plan (03/05/2021 1:43 PM LINUX PROGRAMMER): A1c 4.8. Reviewed diet and exercise recommendations and need for weight loss. Current mild episode of alex r depressive disorder without prior episode 08/18/2017 Neck pain 05/06/2016 03/05/2021 Overview (07/12/2016): Neck pain Shoulder pain 04/19/2016 03/05/2021 Overview (07/12/2016): Shoulder pain Knee pain 01/29/2016 03/05/2021 Overview (07/12/2016): Knee pain Immunizations Immunization Administration Dates Next Due DTaP 09/24/2004, 0,07/23/1999,04/18,02/16/1999 [...] on file Legal Sex Female 1:47 AM LINUX PROGRAMMER Gender Identity Not on file Sexual Orientation Not on file Last Filed Vital Signs Vital Sign Reading Time Taken Comments Blood Pressure 110/64 09/10/2021 1:02 PM CDT Pulse 102 09/10/2021 1:02 PM CDT Temperature 36.7 C (98 F) 05/24/2021 8:56 AM LINUX PROGRAMMER Respiratory Rate 16 09/10/2021 1:02 PM CDT Oxygen Saturation 97% 09/10/2021 1:02 PM CDT Inhaled Oxygen Concentration - - Weight 125.1 kg (275 lb 12.8 oz) 09/10/2021 1:02 PM CDT Height 168.5 cm (5' 6.34 ) 09/10/2021 1:02 PM CD T Body Mass Index 44.06 09/10/2021 1:02 PM CDT Plan of Treatment Not on file Insurance [facility] Address: [address] [address] [place], [place] [id number] [place] [address] [facility] Address: [address] [address] [place] [address] [facility]O Address: [address] [address] [place] [address] [employer] Care Teams Survival Specialist Relationship Specialty Start Date End Date Jovanny Montenegro MD [place] [id number] PCP - General Family Medicine 03/05/21
--- NOTE | 2024-05-24 16:56 | LDADM ---
This patient, Rochelle Louise, was admitted to Labor/Delivery/Recovery 108 on 05/24/24 at 14:08. Plans for labor, pain management and were discussed with patient. Patient/family oriented to hospital policies and general routines including ID bracelet, bed and alarms, visiting hours, pain management, procedures, bathroom and other care routines, personal items, smoking policy, room service/diet and guest tray routines, security routines, and visiting hours. Patient/Family are encouraged to report perceived risks to care and to ask questions if they do not understand what they are told or what they should do. See OBIX for further documentation.
--- NOTE | 2024-05-24 17:06 | P.PNAN_ITS ---
Anes - Eval Pre Procedure Procedure: Labor epidural Date/Time: 05/24/24 17:06 Surgeon: Iván Preop Diagnosis: Abdominal pain with contractions Pre Op Diagnosis: IOL Patient Data Age: 23 Gender: F Height: 1.65 m Weight: 143.5 kg Last Vital Signs Pulse 98 05/24/24 17:01 BP 170/106 H 05/24/24 17:01 O2 Del Method Room Air 05/24/24 16:54 Allergies Allergy/AdvReac Type Severity Reaction Status Date / Time No Known Allergies Allergy Verified 05/22/24 15:55 Home Medications ?Medication ?Instructions ?Recorded ?Confirmed ?Type insulin glargine 100 unit/mL 25 unit subcut QPM 05/22/24 05/22/24 History subcutaneous solution (Lantus U-100 Insulin) vit no.95-ferrous 1 tablet PO DAILY 05/22/24 05/22/24 History fumarate 28 mg-folic acid 800 mcg tablet () Laboratory Tests 05/24/24 05/24/24 05/24/24 15:29 15:30 16:23 WBC 10.8 H K/mm3 (4.5-10.0) RBC 4.92 M/mm3 (4.2-5.4) Hgb 12.7 g/dL (12.0-15.0) Hct 38.9 % (37.0-47.0) MCV 79.1 L fl (80-100) MCH 25.8 L pg (26-34) MCHC 32.6 g/dl (32-36) RDW 15.0 H % (11.5-14.5) Plt Count 248 k/mm3 (150-375) MPV 11.3 H fl (7.4-10.4) Immature Gran % (Auto) 0.5 % (0-0.5) Neut % (Auto) 69.2 % (45.5-73.1) Lymph % (Auto) 23.2 % (18.3-44.2) [place] % (Auto) 6.0 % (2.6-8.5) Eos % (Auto) 0.8 % (0-4.4) Baso % (Auto) 0.3 % (0.2-1.2) Lymph # (Auto) 2.50 K/mm3 (0.9-3.2) [place] # (Auto) 0.7 H K/mm3 (0.1-0.6) Eos # (Auto) 0.1 K/mm3 (0-0.3) Baso # (Auto) 0.0 K/mm3 (0.0-0.1) Abs Immat Gran (auto) 0.05 H K/mm3 (0.00-0.031) Absolute Neuts (auto) 7.4 H K/mm3 (1.3-6.7) Absolute Nucleated RBC 0.000 K/mm3 (0.0-0.012) Nucleated RBC % 0.0 % (0.0-0.2) Sodium 134 L mmol/L (137-145) Potassium 4.3 mmol/L (3.4-5.0) Chloride 106 mmol/L (98-107) Carbon Dioxide 17 L mmol/L (22-30) Anion Gap 11 mmol/L (4-12) BUN 14 D mg/dL (7-17) Creatinine 0.79 mg/dL (0.7-1.0) Estim Creat Clear Calc Not Reportable Estimated GFR > 60 (59 - ) Glucose 118 H mg/dL (65-110) Uric Acid 7.1 mg/dL (2.5-7.5) Calcium 9.4 mg/dL (8.4-10.2) Total Bilirubin 0.3 mg/dL (0.2-1.3) AST 31 U/L (14-36) ALT 20 U/L (6-35) Alkaline Phosphatase 136 H U/L (38-126) Total Protein 7.0 g/dL (6.3-8.2) Albumin 3.2 L g/dL (3.5-5.1) Syphilis IgG/IgM Ab Negative (Negative) RPR Titer Cancelled RPR Cancelled RPR Titer Add Testing Cancelled T.pallidum Ab (FTA-ABS) Cancelled T.pall Ab(FTA-ABS)Reflex Cancelled HIV 1&2 Ab/P24 Ag 4thGn Negative (Negative) : gestational age HCG: positive Patient hx anesthesia problems: none Family hx anesthesia problems: none Results Review: All pre-operative results and documents have been reviewed as part of the pre- operative evaluation. ON LICENSE OF [facility] Past Medical History Medical History Morbid (severe) obesity due to excess calories Hypertension affecting Gestational diabetes Pre-eclampsia Family History Family History Other Unknown family medical history Social History Social History Smoking status: Former smoker Substance use: never Do You Feel Safe in your Home?: Yes Lack of Transportation: No Lack of Food: Never True Current Housing: I Have Housing Concerned About Future Housing: No Difficulty Paying Gas/Electric Bills: No Difficulty Paying for Meds: No Currently Unemployed: No Education: Associate Degree Difficulty w/ Childcare or Family Care: No Exam Day of Procedure 05/24/24 17:06 Patient weight: super morbidly obese Lungs: decreased breath sounds Airway: Mallampati scale class III
[2024-05-24] MEDS: OXYTOCIN 30 UNITS/NS 500 ML 30 UNITS/500 ML BAG IV CONT (17:30)
[2024-05-24] MEDS: LACTATED RINGERS 1,000 ML 125 ML IV CONT ×2 (17:30→19:35)
[2024-05-24 18:42] LABS: Glucose Point of Care 92 mg/dl (65-105)
[2024-05-24] MEDS: PHENYLEPHRINE 1,000 MCG/10 ML SYRINGE 100 MCG IV PUSH ×4 (19:30→20:01)
--- NOTE | 2024-05-24 20:05 | PC.NURSE ---
2004- RN called DANCE ARTIST, RN reported 5 doses of Phenylephrine given as well as decreased blood pressures. Orders received to decrease epidural rate to 10 and administer a 6th dose of phenylephrine.
[2024-05-24 22:25] LABS: Glucose Point of Care 113 mg/dl (65-105)
[2024-05-24] MEDS: CALCIUM CARBONATE (TUMS) 500 MG (200 MG ELEMENTAL) PO (23:56)
[2024-05-25] VITALS (166 sets, daily range): BP systolic 61–165; BP diastolic 38–109; PULSE 76–260; RESP 16–18; TEMP 36.4–37.4; O2SAT 93–100
[2024-05-25 00:06] LABS: Glucose Point of Care 110 mg/dl (65-105)
[2024-05-25 02:23] LABS: Glucose Point of Care 107 mg/dl (65-105)
[2024-05-25] MEDS: ACETAMINOPHEN 500 MG TABLET 1000 MG PO (02:25)
[2024-05-25] MEDS: LACTATED RINGERS 1,000 ML 125 ML IV CONT (04:42)
[2024-05-25 04:46] LABS: Glucose Point of Care 103 mg/dl (65-105)
[2024-05-25 06:27] LABS: Glucose Point of Care 109 mg/dl (65-105)
[2024-05-25 07:59] LABS: Glucose Point of Care 98 mg/dl (65-105)
--- NOTE | 2024-05-25 08:16 | P.HP_ITS ---
H&P: HPI History of Present Illness Date/Time: 05/24/24 18:16 Chief Complaint: preeclampsia without severe features, 6/10 BPP Narrative: Patient is a 23 year old who presents for medical induction of labor in [facility] for preeclampsia without severe features and 6/10 BPP. She was seen in the office for her twice weekly testing, and was found to have 6/10 BPP with reactive NST but no tone or movement on BPP. Her has been complicated by preeclampsia without severe features, with normal bloodwork weekly. Prior testing has been reactive. Her is also complicated by gestational diabetes mellitus A2, on lantus 10 qAM and 25 qPM. She reports good glycemic control on this regimen. Otherwise complications include obesity. Good movement. No strong contractions on arrival, no leakage of fluid or vaginal bleeding. Review of Systems Review of Systems: All systems reviewed & are unremarkable except as noted in HPI and below PMFSH Past Medical History Medical History Morbid (severe) obesity due to excess calories Hypertension affecting Gestational diabetes Pre-eclampsia Family History Family History Other Unknown family medical history Social History Social History Smoking status: Former smoker Substance use: never Do You Feel Safe in your Home?: Yes Lack of Transportation: No Lack of Food: Never True Current Housing: I Have Housing Concerned About Future Housing: No Difficulty Paying Gas/Electric Bills: No Difficulty Paying for Meds: No Currently Unemployed: No Education: Associate Degree Difficulty w/ Childcare or Family Care: No Meds Home Medications and Allergies Home Medications ?Medication ?Instructions ?Recorded ?Confirmed ?Type insulin glargine 100 unit/mL 25 unit subcut QPM 05/22/24 05/24/24 History subcutaneous solution (Lantus U-100 Insulin) vit no.95-ferrous 1 tablet PO DAILY 05/22/24 05/24/24 History fumarate 28 mg-folic acid 800 mcg tablet () Allergies Allergy/AdvReac Type Severity Reaction Status Date / Time No Known Allergies Allergy Verified 05/22/24 15:55 Vital Signs Vital Signs - 24 hr 05/24/24 14:47 05/24/24 15:00 05/24/24 15:03 Temperature Pulse Rate 114 H 106 H 108 H Blood Pressure 149/118 H 175/113 H 176/113 H Pulse Oximetry Oxygen Delivery 05/24/24 15:17 05/24/24 15:31 05/24/24 15:45 Temperature Pulse Rate 114 H 112 H 90 Blood Pressure 183/117 H 150/102 H 157/110 H Pulse Oximetry Oxygen Delivery 05/24/24 16:01 05/24/24 16:31 05/24/24 16:46 Temperature Pulse Rate 103 H 104 H 101 H Blood Pressure 158/88 H 169/115 H 156/112 H Pulse Oximetry Oxygen Delivery 05/24/24 16:50 05/24/24 16:54 05/24/24 17:01 Temperature Pulse Rate 101 H 98 Blood Pressure 170/106 H Pulse Oximetry Oxygen Delivery Room Air 05/24/24 17:31 05/24/24 17:46 05/24/24 17:56 Temperature Pulse Rate 108 H 105 H Blood Pressure 162/98 H 171/100 H Pulse Oximetry 98 Oxygen Delivery 05/24/24 17:58 05/24/24 18:01 05/24/24 18:06 Temperature 99.3 F Pulse Rate 101 H Blood Pressure 183/107 H Pulse Oximetry 99 99 Oxygen Delivery 05/24/24 18:11 05/24/24 18:16 05/24/24 18:21 Temperature Pulse Rate 100 Blood Pressure 162/86 H Pulse Oximetry 98 97 100 Oxygen Delivery 05/24/24 18:26 05/24/24 18:31 05/24/24 18:36 Temperature Pulse Rate 106 H Blood Pressure 164/114 H Pulse Oximetry 98 98 98 Oxygen Delivery 05/24/24 18:36 05/24/24 18:41 05/24/24 18:46 Temperature Pulse Rate 99 Blood Pressure 166/97 H Pulse Oximetry 100 97 95 Oxygen Delivery 05/24/24 18:51 05/24/24 19:01 05/24/24 19:02 Temperature Pulse Rate 101 H Blood Pressure 128/108 H Pulse Oximetry 98 99 Oxygen Delivery 05/24/24 19:05 05/24/24 19:07 05/24/24 19:12 Temperature Pulse Rate 105 H Blood Pressure 152/97 H Pulse Oximetry 99 100 100 Oxygen Delivery 05/24/24 19:14 05/24/24 19:14 05/24/24 19:15 Temperature Pulse Rate 99 Blood Pressure 120/79 Pulse Oximetry 63 L 100 100 Oxygen Delivery 05/24/24 19:17 05/24/24 19:17 05/24/24 19:18 Temperature Pulse Rate 107 H Blood Pressure 132/83 Pulse Oximetry 94 94 100 Oxygen Delivery 05/24/24 19:18 05/24/24 19:18 05/24/24 19:19 Temperature Pulse Rate Blood Pressure Pulse Oximetry 100 100 100 Oxygen Delivery 05/24/24 19:20 05/24/24 19:21 05/24/24 19:21 Temperature Pulse Rate 102 H Blood Pressure 117/66 Pulse Oximetry 100 88 L 83 L Oxygen Delivery 05/24/24 19:22 05/24/24 19:23 05/24/24 19:25 Temperature Pulse Rate 91 97 93 Blood Pressure 108/63 113/70 126/74 Pulse Oximetry 91 Oxygen Delivery 05/24/24 19:28 05/24/24 19:30 05/24/24 19:33 Temperature Pulse Rate 99 86 90 Blood Pressure 100/78 89/50 L 98/56 L Pulse Oximetry Oxygen Delivery 05/24/24 19:35 05/24/24 19:38 05/24/24 19:40 Temperature Pulse Rate 97 91 100 Blood Pressure 108/66 95/44 L 101/57 L Pulse Oximetry Oxygen Delivery 05/24/24 19:43 05/24/24 19:45 05/24/24 19:48 Temperature Pulse Rate 100 98 90 Blood Pressure 109/64 99/53 L 112/63 Pulse Oximetry Oxygen Delivery 05/24/24 19:50 05/24/24 19:53 05/24/24 19:55 Temperature Pulse Rate 94 91 98 Blood Pressure 105/64 107/64 103/58 L Pulse Oximetry Oxygen Delivery 05/24/24 19:58 05/24/24 20:00 05/24/24 20:01 Temperature 98.5 F Pulse Rate 92 119 H 87 Blood Pressure 72/57 L 70/43 L 107/64 Pulse Oximetry Oxygen Delivery 05/24/24 20:03 05/24/24 20:05 05/24/24 20:10 Temperature Pulse Rate 98 105 H 102 H Blood Pressure 116/63 128/77 135/69 Pulse Oximetry Oxygen Delivery 05/24/24 20:11 05/24/24 20:15 05/24/24 20:16 Temperature Pulse Rate 91 Blood Pressure 117/65 Pulse Oximetry 99 100 Oxygen Delivery 05/24/24 20:20 05/24/24 20:21 05/24/24 20:24 Temperature Pulse Rate 101 H Blood Pressure 104/63 Pulse Oximetry 100 93 Oxygen Delivery 05/24/24 20:25 05/24/24 20:25 05/24/24 20:30 Temperature Pulse Rate 99 98 Blood Pressure 123/63 120/59 L Pulse Oximetry 97 97 100 Oxygen Delivery 05/24/24 20:35 05/24/24 20:40 05/24/24 20:45 Temperature Pulse Rate 102 H 96 Blood Pressure 116/69 111/95 H Pulse Oximetry 100 100 100 Oxygen Delivery 05/24/24 20:46 05/24/24 20:48 05/24/24 20:53 Temperature Pulse Rate 90 Blood Pressure 94/35 L Pulse Oximetry 100 100 Oxygen Delivery 05/24/24 20:58 05/24/24 21:00 05/24/24 21:03 Temperature Pulse Rate 86 Blood Pressure 100/52 L Pulse Oximetry 99 100 Oxygen Delivery 05/24/24 21:08 05/24/24 21:13 05/24/24 21:15 Temperature Pulse Rate 92 Blood Pressure 112/59 L Pulse Oximetry 96 98 Oxygen Delivery 05/24/24 21:18 05/24/24 21:20 05/24/24 21:20 Temperature Pulse Rate Blood Pressure Pulse Oximetry 100 100 100 Oxygen Delivery 05/24/24 21:22 05/24/24 21:24 05/24/24 21:25 Temperature Pulse Rate Blood Pressure Pulse Oximetry 100 100 100 Oxygen Delivery 05/24/24 21:28 05/24/24 21:29 05/24/24 21:31 Temperature Pulse Rate 99 Blood Pressure 131/47 L Pulse Oximetry 100 100 Oxygen Delivery 05/24/24 21:34 05/24/24 21:39 05/24/24 21:44 Temperature Pulse Rate Blood Pressure Pulse Oximetry 99 100 100 Oxygen Delivery 05/24/24 21:45 05/24/24 21:46 05/24/24 21:52 Temperature Pulse Rate 85 Blood Pressure 117/41 L Pulse Oximetry 100 100 100 Oxygen Delivery 05/24/24 21:52 05/24/24 21:57 05/24/24 22:00 Temperature 98.2 F Pulse Rate 89 Blood Pressure 130/67 Pulse Oximetry 100 100 Oxygen Delivery 05/24/24 22:02 05/24/24 22:07 05/24/24 22:12 Temperature Pulse Rate Blood Pressure Pulse Oximetry 99 99 100 Oxygen Delivery 05/24/24 22:17 05/24/24 22:22 05/24/24 22:23 Temperature Pulse Rate 71 Blood Pressure 115/66 Pulse Oximetry 100 100 Oxygen Delivery 05/24/24 22:27 05/24/24 22:31 05/24/24 22:32 Temperature Pulse Rate 84 Blood Pressure 98/49 L Pulse Oximetry 99 99 Oxygen Delivery 05/24/24 22:36 05/24/24 22:41 05/24/24 22:46 Temperature Pulse Rate 91 Blood Pressure 109/56 L Pulse Oximetry 97 98 100 Oxygen Delivery 05/24/24 22:51 05/24/24 22:56 05/24/24 22:58 Temperature Pulse Rate Blood Pressure Pulse Oximetry 98 100 98 Oxygen Delivery 05/24/24 23:01 05/24/24 23:03 05/24/24 23:08 Temperature Pulse Rate 85 Blood Pressure 108/87 Pulse Oximetry 99 100 Oxygen Delivery 05/24/24 23:13 05/24/24 23:16 05/24/24 23:18 Temperature Pulse Rate 92 Blood Pressure 127/69 Pulse Oximetry 100 98 Oxygen Delivery 05/24/24 23:23 05/24/24 23:28 05/24/24 23:31 Temperature Pulse Rate 83 Blood Pressure 136/71 Pulse Oximetry 98 97 Oxygen Delivery 05/24/24 23:33 05/24/24 23:38 05/24/24 23:43 Temperature Pulse Rate Blood Pressure Pulse Oximetry 97 97 97 Oxygen Delivery 05/24/24 23:46 05/24/24 23:48 05/24/24 23:53 Temperature Pulse Rate 83 Blood Pressure 142/72 H Pulse Oximetry 95 94 Oxygen Delivery 05/24/24 23:56 05/24/24 23:57 05/25/24 00:00 Temperature Pulse Rate Blood Pressure Pulse Oximetry 93 90 93 Oxygen Delivery 05/25/24 00:00 05/25/24 00:00 05/25/24 00:00 Temperature 98.5 F Pulse Rate Blood Pressure Pulse Oximetry 93 97 Oxygen Delivery 05/25/24 00:01 05/25/24 00:05 05/25/24 00:10 Temperature Pulse Rate 86 Blood Pressure 107/50 L Pulse Oximetry 100 99 Oxygen Delivery 05/25/24 00:15 05/25/24 00:16 05/25/24 00:20 Temperature Pulse Rate 83 Blood Pressure 99/49 L Pulse Oximetry 100 99 Oxygen Delivery 05/25/24 00:25 05/25/24 00:30 05/25/24 00:31 Temperature Pulse Rate 84 Blood Pressure 109/51 L Pulse Oximetry 95 96 Oxygen Delivery 05/25/24 00:35 05/25/24 00:40 05/25/24 00:45 Temperature Pulse Rate Blood Pressure Pulse Oximetry 95 98 97 Oxygen Delivery 05/25/24 00:46 05/25/24 00:50 05/25/24 00:55 Temperature Pulse Rate 85 Blood Pressure 116/62 Pulse Oximetry 96 100 Oxygen Delivery 05/25/24 00:57 05/25/24 01:01 05/25/24 01:02 Temperature Pulse Rate 83 Blood Pressure 134/71 Pulse Oximetry 98 97 Oxygen Delivery 05/25/24 01:07 05/25/24 01:12 05/25/24 01:16 Temperature Pulse Rate 86 Blood Pressure 144/78 H Pulse Oximetry 97 97 Oxygen Delivery 05/25/24 01:17 05/25/24 01:22 05/25/24 01:27 Temperature Pulse Rate Blood Pressure Pulse Oximetry 97 97 96 Oxygen Delivery 05/25/24 01:31 05/25/24 01:32 05/25/24 01:37 Temperature Pulse Rate 88 Blood Pressure 139/66 Pulse Oximetry 97 96 Oxygen Delivery 05/25/24 01:42 05/25/24 01:46 05/25/24 01:47 Temperature Pulse Rate 104 H Blood Pressure 148/81 H Pulse Oximetry 96 100 Oxygen Delivery 05/25/24 01:48 05/25/24 01:53 05/25/24 01:58 Temperature Pulse Rate Blood Pressure Pulse Oximetry 100 99 99 Oxygen Delivery 05/25/24 02:00 05/25/24 02:01 05/25/24 02:03 Temperature 97.9 F Pulse Rate 83 Blood Pressure 115/61 Pulse Oximetry 99 Oxygen Delivery 05/25/24 02:08 05/25/24 02:10 05/25/24 02:15 Temperature Pulse Rate 96 Blood Pressure 134/92 H Pulse Oximetry 98 100 100 Oxygen Delivery 05/25/24 02:20 05/25/24 02:25 05/25/24 02:30 Temperature Pulse Rate Blood Pressure Pulse Oximetry 98 100 100 Oxygen Delivery 05/25/24 02:31 05/25/24 02:35 05/25/24 02:40 Temperature Pulse Rate 86 Blood Pressure 144/92 H Pulse Oximetry 100 100 Oxygen Delivery 05/25/24 02:45 05/25/24 02:46 05/25/24 02:50 Temperature Pulse Rate 88 Blood Pressure 143/65 H Pulse Oximetry 99 100 Oxygen Delivery 05/25/24 02:55 05/25/24 03:00 05/25/24 03:01 Temperature Pulse Rate 91 Blood Pressure 154/85 H Pulse Oximetry 100 100 Oxygen Delivery 05/25/24 03:05 05/25/24 03:10 05/25/24 03:15 Temperature Pulse Rate Blood Pressure Pulse Oximetry 99 100 100 Oxygen Delivery 05/25/24 03:16 05/25/24 03:20 05/25/24 03:25 Temperature Pulse Rate 92 Blood Pressure 142/86 H Pulse Oximetry 100 100 Oxygen Delivery 05/25/24 03:29 05/25/24 03:31 05/25/24 03:34 Temperature Pulse Rate 95 Blood Pressure 141/91 H Pulse Oximetry 96 98 Oxygen Delivery 05/25/24 03:39 05/25/24 03:44 05/25/24 03:47 Temperature Pulse Rate 167 H Blood Pressure 61/38 L Pulse Oximetry 99 99 Oxygen Delivery 05/25/24 03:49 05/25/24 03:54 05/25/24 03:59 Temperature Pulse Rate Blood Pressure Pulse Oximetry 99 100 99 Oxygen Delivery 05/25/24 04:00 05/25/24 04:02 05/25/24 04:04 Temperature 99 F Pulse Rate 98 Blood Pressure 127/73 Pulse Oximetry 99 Oxygen Delivery 05/25/24 04:09 05/25/24 04:14 05/25/24 04:15 Temperature Pulse Rate 95 Blood Pressure 148/98 H Pulse Oximetry 99 100 Oxygen Delivery 05/25/24 04:19 05/25/24 04:24 05/25/24 04:29 Temperature Pulse Rate Blood Pressure Pulse Oximetry 100 99 96 Oxygen Delivery 05/25/24 04:31 02/18/25 04:34 05/25/24 04:39 Temperature Pulse Rate 91 Blood Pressure 130/70 Pulse Oximetry 96 95 Oxygen Delivery 05/25/24 04:44 05/25/24 04:46 05/25/24 04:49 Temperature Pulse Rate 91 Blood Pressure 132/71 Pulse Oximetry 97 97 Oxygen Delivery 05/25/24 04:54 05/25/24 04:59 05/25/24 05:00 Temperature Pulse Rate 94 Blood Pressure 137/91 H Pulse Oximetry 97 96 Oxygen Delivery 05/25/24 05:04 05/25/24 05:09 05/25/24 05:14 Temperature Pulse Rate Blood Pressure Pulse Oximetry 98 97 96 Oxygen Delivery 05/25/24 05:16 05/25/24 05:21 05/25/24 05:26 Temperature Pulse Rate 101 H Blood Pressure 118/81 Pulse Oximetry 96 95 96 Oxygen Delivery 05/25/24 05:31 05/25/24 05:32 05/25/24 05:34 Temperature Pulse Rate 97 Blood Pressure 93/73 L Pulse Oximetry 99 97 100 Oxygen Delivery 05/25/24 05:39 05/25/24 05:44 05/25/24 05:45 Temperature Pulse Rate 260 H Blood Pressure 139/97 H Pulse Oximetry 100 100 Oxygen Delivery 05/25/24 05:49 05/25/24 05:54 05/25/24 05:59 Temperature Pulse Rate Blood Pressure Pulse Oximetry 98 98 97 Oxygen Delivery 05/25/24 06:00 05/25/24 06:04 05/25/24 06:09 Temperature 98.8 F Pulse Rate Blood Pressure Pulse Oximetry 100 98 Oxygen Delivery 05/25/24 06:14 05/25/24 06:16 05/25/24 06:19 Temperature Pulse Rate 91 Blood Pressure 139/65 Pulse Oximetry 100 99 Oxygen Delivery 05/25/24 06:24 05/25/24 06:26 05/25/24 06:31 Temperature Pulse Rate 93 Blood Pressure 121/63 Pulse Oximetry 99 100 98 Oxygen Delivery 05/25/24 06:36 05/25/24 06:41 05/25/24 06:45 Temperature Pulse Rate 96 Blood Pressure 131/66 Pulse Oximetry 99 98 Oxygen Delivery 05/25/24 06:46 05/25/24 06:51 05/25/24 06:56 Temperature 99.4 F Pulse Rate Blood Pressure Pulse Oximetry 100 97 97 Oxygen Delivery 05/25/24 07:01 05/25/24 07:06 05/25/24 07:10 Temperature Pulse Rate 93 Blood Pressure 101/63 Pulse Oximetry 97 100 100 Oxygen Delivery 05/25/24 07:11 05/25/24 07:15 05/25/24 07:16 Temperature Pulse Rate 104 H Blood Pressure 145/95 H Pulse Oximetry 100 100 Oxygen Delivery 05/25/24 07:21 05/25/24 07:26 05/25/24 07:31 Temperature Pulse Rate 97 Blood Pressure 147/83 H Pulse Oximetry 98 98 98 Oxygen Delivery 05/25/24 07:36 05/25/24 07:41 05/25/24 07:46 Temperature Pulse Rate 96 Blood Pressure 151/97 H Pulse Oximetry 99 99 99 Oxygen Delivery 05/25/24 07:51 05/25/24 07:56 05/25/24 08:01 Temperature Pulse Rate 122 H Blood Pressure 139/109 H Pulse Oximetry 99 100 100 Oxygen Delivery 05/25/24 08:06 05/25/24 08:06 05/25/24 08:08 Temperature Pulse Rate Blood Pressure Pulse Oximetry 100 100 100 Oxygen Delivery 05/25/24 08:10 05/25/24 08:10 05/25/24 08:15 Temperature Pulse Rate Blood Pressure Pulse Oximetry 100 100 100 Oxygen Delivery Exam Const: General: comfortable and no acute distress HENMT: Mouth: Yes moist mucous membranes Resp: Effort & Inspection: normal respiratory effort Cardio: Rate: regular rate : Other: SVE 4/60/-2, rupture of membranes with clear fluid Skin: General skin exam: normal color Extrem: General: normal to inspection Psych: Mental Status: mental status grossly normal H&P: Results Labs Labs: Short CBC 05/24/24 Range/Units 15:29 WBC 10.8 H (4.5-10.0) K/mm3 Hgb 12.7 (12.0-15.0) g/dL Hct 38.9 (37.0-47.0) % Plt Count 248 (150-375) k/mm3 BMP 05/24/24 16:23 Sodium 134 L Potassium 4.3 Chloride 106 Carbon Dioxide 17 L BUN 14 D Creatinine 0.79 Glucose 118 H Calcium 9.4 Liver Function 05/24/24 Range/Units 16:23 Total Bilirubin 0.3 (0.2-1.3) mg/dL AST 31 (14-36) U/L ALT 20 (6-35) U/L Alkaline Phosphatase 136 H (38-126) U/L Albumin 3.2 L (3.5-5.1) g/dL Assessment and Plan Assessment and plan (1) Pre-eclampsia: Code(s): O14.90 - Unspecified pre-eclampsia, unspecified trimester Status: Acute Assessment and Plan: - asymptomatic - BP 140s-150s/80s-90s - labs wnl - intermittent severe range BPs on admission, will continue to monitor at this time (2) Gestational diabetes mellitus, class A2: Code(s): O24.419 - Gestational diabetes mellitus in , unspecified control Status: Acute Assessment and Plan: - current regimen lantus 10u qAM, 25u qPM - good glycemic control (3) Abnormal test: Code(s): O28.9 - Unspecified abnormal findings on screening of mother Status: Acute Assessment and Plan: - BPP 09/14 - will proceed with induction today - pitocin per protocol, AROM of clear fluid, SVE /-2 (4) 36 weeks gestation of : Code(s): Z3A.36 - 36 weeks gestation of Status: Acute (5) Obesity affecting in third trimester: Code(s): O99.213 - Obesity complicating , third trimester Status: Acute
--- NOTE | 2024-05-25 09:26 | P.PCNOB_ITS ---
OB - Vaginal Delivery Note Procedure Delivery date: 05/25/24 Events: Gestational Diabetes (A2) and Preeclampsia w/o severe features Induction method: AROM and Per Pitocin Protocol Delivery monitor: External FHT and Internal Uterine Route of delivery: Episiotomy description: None Laceration Description: Perineal - 2nd Degree Delivery repair: vicryl Specimen: No Quantitative Blood Loss (ml): 200 Anesthesia type: Epidural Disposition: Floor Complications: No immediate complications Narrative: See H&P and notes for details on patient's admission and labor. She progressed to complete cervical dilation and at the appropriate time began pushing. With adequate expulsive efforts by the mother, the baby's head was delivered without difficulty. Nuchal cord was present x1 and was delivered through. The baby's left shoulder was anterior and delivered under the pubic symphysis without difficulty. The posterior shoulder and the rest of the baby delivered without difficulty. The umbilical cord was doubly clamped and cut after 60 seconds of delayed cord clamping. Care of the was then assumed by the nursing staff. [place] Baby Date of : 05/25/24 Gestational Age by Date: 37 gender: Female Weight (pounds): 7 Weight (ounces): 11 presentation: vertex position: Left Occiput Anterior Placenta delivery description: Spontaneous Cord Vessel Description: 3 Vessels, Nuchal Cord and Delayed Cord Clamping
[2024-05-25] MEDS: OXYTOCIN 30 UNITS/NS 500 ML 30 UNITS/500 ML BAG 125 UNITS IV CONT (09:33)
[2024-05-25] MEDS: LABETALOL HCL 100 MG TABLET 200 MG PO ×2 (09:33→21:07)
--- NOTE | 2024-05-25 11:44 | OBPPTRN ---
Patient transferred to post room #286 via wheelchair. Support person present. Oriented to unit, room, information board, rooming in, admission packet and security measures. Patient verbalizes understanding.
[2024-05-25] MEDS: IBUPROFEN 600 MG TABLET PO ×2 (12:01→18:36)
[2024-05-25] MEDS: ACETAMINOPHEN 325 MG TABLET 650 MG PO ×2 (12:02→18:36)
[2024-05-26] VITALS (9 sets, daily range): BP systolic 124–156; BP diastolic 72–93; PULSE 79–94; RESP 16–83; TEMP 36.3–37.2; O2SAT 98–100
[2024-05-26] MEDS: IBUPROFEN 600 MG TABLET PO ×4 (00:20→19:54)
[2024-05-26] MEDS: ACETAMINOPHEN 325 MG TABLET 650 MG PO ×4 (00:20→19:54)
[2024-05-26 05:23] LABS: Glucose Point of Care 90 mg/dl (65-105)
[2024-05-26 05:51] LABS: Hematocrit 34.6 % (37.0-47.0); Hemoglobin 10.7 g/dL (12.0-15.0)
[2024-05-26] MEDS: DOCUSATE SODIUM 100 MG CAPSULE PO (07:47)
[2024-05-26] MEDS: LABETALOL HCL 100 MG TABLET 200 MG PO ×2 (07:47→21:16)
--- NOTE | 2024-05-26 13:30 | WPDANLDPN2 ---
Anes-Prog Note L&D Date/Time: 05/26/24 13:30 Comfortable throughout: labor and delivery Neuraxial method: epidural Epidural/Spinal procedure site: clean & non-tender Neuro status: Neuro function grossly intact. Cardiovascular status: normal Respiratory status: normal Airway patency: baseline Mental status: baseline Post-Op hydration status: normal Vital Signs: Last Vital Signs Temp 97.4 F L 05/26/24 12:02 Pulse 89 05/26/24 12:02 Resp 16 05/26/24 12:02 BP 149/82 H 05/26/24 12:02 Pulse Ox 99 05/26/24 12:02 O2 Del Method Room Air 05/26/24 07:10 Pain score (VAS): 6 I/O: Intake & Output 05/25/24 05/26/24 05/26/24 23:59 07:59 15:59 Intake Total 750 1000 550 Output Total 500 1690 1600 Balance 250 -690 -1050 Post-procedural complaints: none Patient feedback: Patient satisfied with anesthetic care.
[2024-05-27] MEDS: IBUPROFEN 600 MG TABLET PO (05:20)
[2024-05-27] MEDS: ACETAMINOPHEN 325 MG TABLET 650 MG PO (05:20)
[2024-05-27 06:12] VITALS: BP 152/102; PULSE 87
[2024-05-27 07:40] VITALS: BP 146/72; PULSE 95; RESP 18; TEMP 36.7; O2SAT 100
--- NOTE | 2024-05-27 08:50 | P.PNOB_ITS ---
OB - PN: Subj Subjective Date/time seen: 05/27/24 08:50 Patient comments: no complaints, pain well controlled and tolerating diet OB - PN: Obj Data Labs 05/26/24 05:14 05/24/24 16:23 OB - PN A/P Plan day: 2 Plan: routine care and discharge home Time Spent With Patient Time: Total time spent is greater than 50% in coordination of care (as documented) at patient's floor/unit and/or counseling patient: Exam 2 Const: General: comfortable and no acute distress Resp: Effort & Inspection: normal respiratory effort Auscultation: no rales, no rhonchi and no wheezes Cardio: Rate: regular rate Heart sounds: no click, no murmurs and no rubs GI: GI Palp: Yes Soft to palpation and No Tenderness to palpation present (GI) Auscultation: normal bowel sounds Extrem: General: normal to inspection, no pedal edema and no calf tenderness
--- NOTE | 2024-05-27 08:52 | P.DS_ITS ---
DS: Admitting Diagnosis Discharge Date 05/27/2024 Admitting Diagnosis Term DS: Discharge Diagnosis Discharge Diagnosis (1) Term delivered: Code(s): O80 - Encounter for full-term uncomplicated delivery Status: Acute OB - DS: Summary OB Procedures : None OB Procedures Intrapartum: Spontaneous Vag Delivery OB Procedures: : None Peripartum Data Laceration Description: Perineal - 2nd Degree Episiotomy description: None Time Spent with Patient Time attestation: Total time spent providing and/or coordinating discharge services: DS: Data Data Completed and Pending Pending studies at discharge: Pending at discharge 05/25/24 09:09 Surgical [PTH] Routine Discharge Plan Discharge Discharging Clinician: Jason Sher Patient Disposition: Home, Self-Care Activity: pelvic rest Diet: regular Patient Instructions: Antibiotic Form Patient Language: Citizen Of [place] Stand Alone Forms: General Discharge Information Follow-up/Referrals: Jason Sher MD [Physician] - Discharge Medications: Continued PNV cmb#95-ferrous fumarate-FA [] 28 mg iron- 800 mcg tablet 1 tablet PO DAILY insulin glargine [Lantus U-100 Insulin] 100 unit/mL solution 25 unit subcut QPM Date of admission: 05/24/24 14:08 Primary Care Provider: UNKNOWN,DOCTOR Admitting Provider: Jarad Minor Attending physician on admission: Jarad Minor Condition: Stable
[2024-05-27 09:00] VITALS: PULSE 88
[2024-05-27] MEDS: LABETALOL HCL 100 MG TABLET 200 MG PO (09:00)
[2024-05-27] MEDS: DOCUSATE SODIUM 100 MG CAPSULE PO (09:00)
[2024-05-29 11:17] VITALS: BP 142/97; PULSE 76; RESP 18; TEMP 36.5; O2SAT 97
== END 2024-05-27 12:20 | disposition home or self-care (01) | DRG 807 ==
LOC: ANHOB2 05-27 08:53 → ANHLDR 05-28 08:41 → ANHOB2 05-28 08:41
PROVIDERS: Admitting Provider Obstetrics & Gynecology; Visit Provider Obstetrics & Gynecology
DX: O14.04 Mild to moderate pre-eclampsia, complicating childbirth (principal); Z37.0 Single live birth; O99.214 Obesity complicating childbirth; O70.1 Second degree perineal laceration during delivery; O69.81X0 Labor and delivery complicated by cord around neck, without compression, not applicable or unspecified; O24.424 Gestational diabetes mellitus in childbirth, insulin controlled; Z3A.36 36 weeks gestation of pregnancy
CPT/HCPCS: 36415; 80053; 82948; 84550; 85014; 85018; 85025; 86593; 86703; 86850; 86900; 86901; 88307; A9270; G0432; J2371; J2590; J2795; J7120

== ENCOUNTER 2024-05-31 09:54 | Outpatient (CLI) | payer OTHER, MEDICAID, SELFPAY ==
[2024-05-31 10:27] VITALS: BP 145/79; PULSE 75; BMI 48.7
[2024-05-31 10:28] VITALS: BP 145/79; PULSE 75
[2024-05-31 10:33] LABS: Basophils Absolute Auto 0.1 K/mm3 (0.0-0.1); Basophils Percent Auto 1.1 % (0.2-1.2); Eosinophils Absolute Auto 0.5 K/mm3 (0-0.3); Hematocrit 36.8 % (37.0-47.0); Hemoglobin 11.5 g/dL (12.0-15.0); Immature Granulocyte Percent A 1.1 % (0-0.5); Lymphocytes Absolute Auto 2.29 K/mm3 (0.9-3.2); Lymphocytes Percent Auto 24.2 % (18.3-44.2); Mean Corpuscular HGB Conc 31.3 g/dl (32-36); Mean Corpuscular Hemoglobin 25.3 pg (26-34); Mean Corpuscular Volume 81.1 fl (80-100); Mean Platelet Volume 10.1 fl (7.4-10.4); Monocytes Absolute Auto 0.7 K/mm3 (0.1-0.6); Monocytes Percent Auto 7.8 % (2.6-8.5); Neutrophils Absolute Auto 5.8 K/mm3 (1.3-6.7); Neutrophils Percent Auto 60.8 % (45.5-73.1); Platelet Count Result 308 k/mm3 (150-375); Red Blood Count 4.54 M/mm3 (4.2-5.4); Red Cell Distribution Width 15.4 % (11.5-14.5); White Blood Count 9.5 K/mm3 (4.5-10.0)
[2024-05-31 10:47] VITALS: BP 155/91; PULSE 76
[2024-05-31 10:50] LABS: Alanine Aminotransferase 43 U/L (6-35); Albumin Level 3.5 g/dL (3.5-5.1); Alkaline Phosphatase 93 U/L (38-126); Anion Gap 10 mmol/L (4-12); Aspartate Amino Transferase 80 U/L (14-36); Bilirubin,Total 0.4 mg/dL (0.2-1.3); Blood Urea Nitrogen 14 mg/dL (7-17); Carbon Dioxide 22 mmol/L (22-30); Chloride 104 mmol/L (98-107); Estimated CRCL calculation 137 ml/min; Estimated Glomerular Filt Rate > 60; Glucose 94 mg/dL (65-110); Potassium 4.1 mmol/L (3.4-5.0); Sodium 136 mmol/L (137-145); Uric Acid 7.6 mg/dL (2.5-7.5)
[2024-05-31 11:02] VITALS: BP 161/91; PULSE 80
--- OUTSIDE RECORDS SUMMARY | 2024-05-31 11:06 | XMS_ITS | Referral Summary ---
Author Organization [facility] Address [address] [place] [address] Care Team Providers Care Vertical Borer Name Role Phone Jovanny Montenegro MD Primary Care Provider [phone] Allergies No known active allergies Medications albuterol [...] 03/05 Assessment & Plan (03/05/2021 2:01 PM GRINDING OPERATOR): Results for orders placed or performed in [...] 03/05/2021 Assessment & Plan (03/05/2021 1:44 PM GRINDING OPERATOR): Encouraged patient to take daily antihistamine and avoid exposure to known irritants/animals. Encounter for medical examination to establish c are 03/05/2021 Assessment & Plan (03/05/2021 2:01 PM GRINDING OPERATOR): Preventive exam; reviewed recommended preventive screenings and vaccinations. Declines annual flu vaccine. Wear sunscreen/protective clothing when outdoors. No concerns for STI and declines testing. Will request pap results from LIGHTING FIXTURES DECORATOR office. 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 Assessment & Plan (06/20/2021 1:52 PM CDT): Stable on current medication regimen, sertraline 50 mg daily. No changes made today. We will continue to monitor. Assessment & Plan (03/05/2021 2:00 PM GRINDING OPERATOR): Depression well controlled with sertraline. Medication refilled. [...] monitor. Assessment & Plan (05/24/2021 9:37 AM GRINDING OPERATOR): Discussed healthy diet and importance of regular physical activity. Assessment & Plan (03/05/2021 1:38 PM GRINDING OPERATOR): Discussed healthy diet and importance of regular physical activity. Primary hypertriglyceridemia 08/13/2010 Resolved Problems Problem Noted Date Diagnosed Date Resolved Date Lipid screening 03/05/2021 03/05/2021 Encounter for screening for diabetes mellitus 03/05/20 21 03/05/2021 Assessment & Plan (03/05/2021 1:43 PM GRINDING OPERATOR): A1c 4.8. Reviewed diet and exercise recommendations [...] on file Legal Sex Female 1:47 AM GRINDING OPERATOR Gender Identity Not on file Sexual Orientation Not on file Last Filed Vital Signs Vital Sign Reading Time Taken Comments Blood Pressure 110/64 09/10/2021 1:02 PM CDT Pulse 102 09/10/2021 1:02 PM CDT Temperature 36.7 C (98 F) 05/24/2021 8:56 AM GRINDING OPERATOR Respiratory Rate 16 09/10/2021 1:02 PM CDT Oxygen Saturation 97% 09/10/2021 1:02 PM CDT Inhaled Oxygen Concentration - - Weight 125.1 kg (275 lb 12.8 oz) 09/10/2021 1:02 PM CDT Height 168.5 cm (5' 6.34 ) 09/10/2021 1:02 PM CD T Body Mass Index 44.06 09/10/2021 1:02 PM CDT Plan of Treatment Not on file Insurance [facility] [place] [address] [place] [address] [facility] [employer] [employer] Care Teams Vertical Borer Relationship Specialty Start Date End Date Jovanny Montenegro MD [place] [id number] PCP - General Family Medicine 03/05/21
--- OUTSIDE RECORDS SUMMARY | 2024-05-31 11:06 | XMS_ITS | Clinical Summary ---
Author Organization [facility] Address [address] [place] [address] Care Team Providers Care Controller Repairer And Tester Name Role Phone Jovanny Montenegro MD Primary Care Provider [phone] Allergies No known active allergies Medications albuterol [...] 03/05 Assessment & Plan (03/05/2021 2:01 PM CURVE SAW OPERATOR): Results for orders placed or performed [...] 03/05/2021 Assessment & Plan (03/05/2021 1:44 PM CURVE SAW OPERATOR): Encouraged patient to take daily antihistamine and avoid exposure to known irritants/animals. Encounter for medical examination to establish c are 03/05/2021 Assessment & Plan (03/05/2021 2:01 PM CURVE SAW OPERATOR): Preventive exam; reviewed recommended preventive screenings and vaccinations. Declines annual flu vaccine. Wear sunscreen/protective clothing when outdoors. No concerns for STI and declines testing. Will request pap results from TEASEL GIG OPERATOR office. 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 Assessment & Plan (06/20/2021 1:52 PM CDT): Stable on current medication regimen, sertraline 50 mg daily. No changes made today. We will continue to monitor. Assessment & Plan (03/05/2021 2:00 PM CURVE SAW OPERATOR): Depression well controlled with sertraline. Medication [...] monitor. Assessment & Plan (05/24/2021 9:37 AM CURVE SAW OPERATOR): Discussed healthy diet and importance of regular physical activity. Assessment & Plan (03/05/2021 1:38 PM CURVE SAW OPERATOR): Discussed healthy diet and importance of regular physical activity. Primary hypertriglyceridemia 08/13/2010 Resolved Problems Problem Noted Date Diagnosed Date Resolved Date Lipid screening 03/05/2021 03/05/2021 Encounter for screening for diabetes mellitus 03/05/20 21 03/05/2021 Assessment & Plan (03/05/2021 1:43 PM CURVE SAW OPERATOR): A1c 4.8. Reviewed diet and exercise [...] on file Legal Sex Female 1:47 AM CURVE SAW OPERATOR Gender Identity Not on file Sexual Orientation Not on file Obstetrics History Last Filed Vital Signs Vital Sign Reading Time Taken Comments Blood Pressure 110/64 09/10/2021 1:02 PM CDT Pulse 102 09/10/2021 1:02 PM CDT Temperature 36.7 C (98 F) 05/24/2021 8:56 AM CURVE SAW OPERATOR Respiratory Rate 16 09/10/2021 1:02 PM [...] Influenza Vaccine (#1) 2023 9, 02/06/2015, 01/06/2009 Hepatitis B Screening Completed 12/02/2002 , 09/10/1999, 07/23/1999 Pneumococcal vaccine <65 Completed 003, 02/13/2000, 12/27/1999 HPV Vaccines Completed 11/08/2011, 12/07, 10/26/2010 Varicella Vaccines Completed 02/18/2014, 0 12/10/2013, 12/27/1999 Insurance [facility] CHO[facility] PLUS [facility] H[facility]/PPO Address: [address] [facility] H[facility]/PPO Address: [facility] [address] [place] [address] [facility] CHOICE PLUS [facility] HMO/PPO Address: [address] [address] [place] [address] [address] [facility] [place] [address] [employer] Care Teams Controller Repairer And Tester Relationship Specialty Start Date End Date Jovanny Montenegro MD [address] [place] [address] PCP - General Family Medicine 03/05/21
[2024-05-31 11:07] VITALS: BP 167/97; PULSE 77
--- OUTSIDE RECORDS SUMMARY | 2024-05-31 11:07 | XMS_ITS | Clinical Summary ---
Author Organization [facility] [employer] [place] Address [address] [place] [address] [place] [address] Care Team Providers Care Clerk General Office Name Role Phone Unavailable Primary Care Provider [...] Encounters Date Type Department Care Team Description 05/25/2024 External Device Data STL ABSTRACTION Provider, Abstract 04/29/2024 External Device Data STL ABSTRACTION Provider, Abstract 04/28/2024 External Device Data STL ABSTRACTION Provider, Abstract 04/27/2024 External Device Data STL ABSTRACTION Provider, Abstract 04/23/2024 1:30 PM ASSESSMENT ANALYST - 04/23/2024 11:59 PM ASSESSMENT ANALYST Hospital Encounter [facility] [place] [facility] [address] [place] [address] Jeovany Smith MD Discharge Disposition: Home or Self Care 04/23/2024 1:30 PM ASSESSMENT ANALYST Office Visit [facility] [address] [facility] [address] [address] Jeovany Smith MD abnormality affecting management of mother, single or unspecified fetus (Primary Dx) 04/22/2024 9:59 AM ASSESSMENT ANALYST - 04/22/2024 11:59 PM ASSESSMENT ANALYST Hospital Encounter [facility] Roseanne Pace [address] [place] [phone] Albert Simmons MD Discharge Disposition: Home or Self Care 04/22/2024 9:58 AM ASSESSMENT ANALYST - 04/22/2024 11:59 PM ASSESSMENT ANALYST Hospital Encounter [facility] Roseanne Pace [address] [place] [phone] Bipin Rodríguez MD Discharge Disposition: Home or Self Care 04/22/2024 Orders Only [facility] Maternal and Ground [address] [place] [address] Bipin Rodríguez MD Abnormal findings on screening (Primary Dx) 04/22/2024 Orders Only [facility] Maternal and Ground [facility] [address] [address] [place] [address] Albert Simmons MD Abnormal findings on screening (Primary Dx) 04/20/2024 External Device Data STL ABSTRACTION Provider, Abstract 04/09/2024 Telephone [facility] Maternal and Ground [facility] [address] [address] [place] [address] Yue John RN Needs Appointment 04/08/2024 3:45 PM ASSESSMENT ANALYST - 04/08/2024 11:59 PM ASSESSMENT ANALYST Hospital Encounter [facility] Roseanne Pace [address] [place] [phone] Albert Simmons MD Discharge Disposition: Home or Self Care 03/30/2024 External Device Data STL ABSTRACTION Provider, Abstract 03/24/2024 8:45 AM ASSESSMENT ANALYST - 03/24/2024 11:59 PM ASSESSMENT ANALYST Hospital Encounter [facility] Maternal and Ground [facility] [address] [place] [address] Bipin Rodríguez MD Discharge Disposition: Home or Self Care 03/02/2024 Orders Only [facility] [address] [facility] [place] [address] Bipin Rodríguez MD Morbid obesity [...] Depression Mother Gabriela Quertermouse Diabetes Mother Gabriela Quertermouse Other Mother Gabriela [place]ouse Fibromya lgia, neuropathy Diabetes Paternal Grandfather Keyshawn Mirtermouse Unknown Paternal Grandfather Keyshawn Mirtermouse Unknown Paternal [...] Comments Blood Pressure 140/99 04/23/2024 2:26 PM ASSESSMENT ANALYST Pulse 114 04/23/2024 2:26 PM ASSESSMENT ANALYST Temperature 36.7 C (98.1 F) 05/24/2021 7:28 AM ASSESSMENT ANALYST Respiratory Rate 16 05/24/2021 7:28 AM ASSESSMENT ANALYST Oxygen Saturation 99% 05/24/2021 7:28 AM ASSESSMENT ANALYST Inhaled Oxygen Concentration - - Weight 122.9 kg (271 lb) 04/23/2024 2:26 PM ASSESSMENT ANALYST Height 165.1 cm (5' 5 ) 04/23/2024 2:26 PM ASSESSMENT ANALYST Body Mass Index 45.1 04/23/2024 2:26 PM ASSESSMENT ANALYST Plan of Treatment Health Maintenance Due Date [...] 2D W DOPPLER Routine 04/23/2024 2:29 PM ASSESSMENT ANALYST abnormality affecting management of mother, single or unspecified fetus US OB FOLLOW UP PER FETUS Routine 04/22/2024 11:47 AM ASSESSMENT ANALYST Obesity affecting in third trimester, unspecified obesity type screening encounter ECHO 2D + COLOR FLOW VELOCITY Routine 04/22/2024 11:47 AM ASSESSMENT ANALYST Encounter for screening for malformation US OB FOLLOW UP PER FETUS Routine 04/08/2024 4:32 PM ASSESSMENT ANALYST Obesity affecting in third trimester, unspecified obesity type screening encounter US OB DETAIL SINGLE GEST Routine 03/24/2024 10:18 AM ASSESSMENT ANALYST Obesity during , antepartum screening for malformation using ultrasonics from Last 3 Months Results * ECHOCARDIOGRAM 2D W DOPPLER (04/23/2024 2:29 PM ASSESSMENT ANALYST) 04/23/2024 1:47 PM ASSESSMENT ANALYST Narrative INTERFACE SYSTEM - 04/25/2024 6:39 AM ASSESSMENT ANALYST *[facility]* Echocardiogram Report Complete 2D, complete spectral Doppler, and color Doppler PATIENT: Rochelle Aquino *STUDY DATE/TIME:* Apr 23 2024 1:47PM *HEIGHT:* 165.1cm / (65in) /AGE: 09 2000 / 23year(s) *WEIGHT:* 122.9kg / (271lb) GENDER: F *BSA/BMI:* 2.25m^2 / 45.1kg/m^2 *BP:* 140 / 99 *IMAGING FACILITY:* [facility] *REFERRING PHYSICIAN:* Stefany Napier M.D. *ORDERING PROVIDER:* Jeovany Smith M.D. *READING PHYSICIAN:Juwan Smith M.D. REASON FOR EXAM: Abnormal ultrasound. STUDY AND PROCEDURE DATA: echocardiography, initial or complete study. Institution: [facility]. Procedure: Transabdominal echocardiogram was performed for congenital [...] Procedure Note Jeovany Smith MD - 04/25/2024 *[facility]* Echocardiogram Report Complete 2D, complete spectral Doppler, and color Doppler PATIENT: Rochelle Aquino *STUDY DATE/TIME:* Apr 2364592:47PM *HEIGHT:* 165.1cm / (65in) /AGE: 09 2000 / 23year(s) *WEIGHT:* 122.9kg / (271lb) GENDER: F *BSA/BMI:* 2.25m^2 / 45.1kg/m^2 *BP:* 140 / 99 *IMAGING FACILITY:* [facility] *REFERRING PHYSICIAN:* Stefany Napier M.D. *ORDERING PROVIDER:Juwan Smith M.D. *READING PHYSICIAN:Juwan Smith M.D. REASON FOR EXAM: Abnormal ultrasound. STUDY AND PROCEDURE DATA: echocardiography, initial or completestudy. Institution: [facility]. Procedure: Transabdominal fetalechocardiogram was performed for congenital [...] FOLLOW UP PER FETUS (04/22/2024 11:47 AM ASSESSMENT ANALYST) Only the most recent of2 resultswithin the time period is included. Anatomical Region Laterality Modality Pelvis Ultrasound 04/22/2024 10:1 1 AM ASSESSMENT ANALYST Narrative 04/22/2024 11:51 AM ASSESSMENT ANALYST STL FOLLOW UP ----- Pat. Name: ROCHELLE AQUINO Study Date: 04/22/2024 10:11am Pat. NO: [id number] Referring MD: BIPIN RODRÍGUEZ MD Site: [facility] Angiography: Jailene Hassan RDMS : 2000 Age: 23 ----- INDICATION ----- Maternal Obesity (BMI>40) Complicating CODING ----- Diagnoses Z3A.32: Weeks of gestation O99.213: Obesity complicating Procedures 98020: Ultrasound, uterus, real time with image documentation, follow up, transabdominal approach per fetus 89418: Echocardiography, , cardiovascular system, real time with image documentation (2D), with or without M-mode recording 28542: Doppler echocardiography color flow velocity mapping 01535: Doppler echocardiography, , cardiovascular system, pulsed wave [...] 5 lb 10 oz EFW by Hadlock ([id number]) Head / Face / Neck Biometry: Obstetrics And Gynecology Professor 4.1 mm Thorax / Lungs Biometry: Thoracic [...] suboptimal RVOT view normal 3-vessel view suboptimal 7-xlctml-xpiagwu view normal High short axis view normal [...] width diast 13.5 mm -0.19 -0.14 0.13 Puliod LV width diast 14.4 mm 0.59 0.68 [...] PA branch 3.1 mm -1.03 -0.93 -0.77 Pulido Lt PA branch 2.9 mm -0.97 -0.78 [...] Heart / Thorax 4-chamber view. RVOT view. 7-kfghys-fudvnda view. Diaphragm. Abdomen Stomach. Kidneys. Bladder. The [...] and date of were verified by the special warfare operator prior to the exam IMPRESSION ----- -Single [...] Pat. Name:Pepe AQUINO Date:04/22/2024 10:11am Pat. NO: [id number] MD:BIIPN RODRÍGUEZ MD [facility]ene Hassan RDMS :2000Age:23 ----- INDICATION ----- Maternal Obesity (BMI>40) Complicating CODING ----- Diagnoses Z3A.32: Weeks of gestation O99.213: Obesity complicating Procedures 20498: Ultrasound, uterus, real time withimage documentation, follow up, transabdominal approach per fetus 44632: Echocardiography, , cardiovascularsystem, real time with image documentation (2D), with or without M-mode recording 90213: Doppler echocardiography color flowvelocity mapping 00513: Doppler echocardiography, ,cardiovascular system, pulsed wave and/or continuous wave with spectral display; complete MATERNAL ASSESSMENT ----- Physical Exam Initial weight 315 lb METHOD ----- Transabdominal ultrasound examination ----- Ayala . Number of fetuses: 1 DATING ----- Prior assessment on:06/15/2024 GA by prior [id number] w + 2 d RONALD by prior [...] 5 lb 10 oz EFW by Hadlock ([id number]) Head / Face / Neck Biometry: Obstetrics And Gynecology Professor 4.1mm Thorax / Lungs Biometry: Thoracic circ [...] suboptimal RVOT view normal 3-vessel view suboptimal 6-hkquyq-jvmumlp view normal High short axis view normal [...] mm 70%Ferguson IV Septum diast 3.5 mm83% Freguson LVOT diam 4.3mm LVOT area 15.0mm TV [...] Heart / Thorax 4-chamber view. RVOT view. 9-vbldbh-wzcgxudhsou. Diaphragm. Abdomen Stomach. Kidneys. Bladder. The following [...] and date of were verified by the special warfare operator prior tothe exam IMPRESSION ----- -Single living [...] of this patient. us Albert Simmons MD US ORDERABLES Edited Result - Final * ECHO 2D + COLOR FLOW VELOCITY (04/22/2024 11:47 AM ASSESSMENT ANALYST) Narrative 04/22/2024 11:47 AM ASSESSMENT ANALYST Order information only. Exam was auto-finalized. us Bipin Rodríguez MD US ORDERABLES Final Result * US OB DETAIL SINGLE GEST (03/24/2024 10:18 AM ASSESSMENT ANALYST) Anatomical Region Laterality Modality Pelvis Ultrasound 03/24/2024 9:03 AM ASSESSMENT ANALYST Narrative 03/24/2024 10:22 AM ASSESSMENT ANALYST STL COMP ----- Pat. Name: ROCHELLE AQUINO Study Date: 03/24/2024 9:03am Pat. NO: [id number] Referring MD: BIPIN RODRÍGUEZ MD Site: [facility] Rn Angiography: Vika Esquivel RDMS, RVT : 2000 Age: 23 ----- INDICATION ----- Anatomy Survey Maternal Obesity (BMI>40) Complicating CODING ----- Diagnoses Z3A.28: Weeks of gestation O99.213: Obesity complicating Z36.3: Encounter for screening for malformations Procedures 72965: Ultrasound, uterus, real time with image documentation, [...] (lb,oz) 3 lb 7 oz EFW by Roro ([id number]) Head / Face / Neck Biometry: Obstetrics And Gynecology Professor 6.7 mm CM 7.1 mm 62% Nicolaides [...] Thorax 4-chamber view. LVOT view. 3-vessel view. 0-sslsjm-hbnpydl view. Situs. High short axis view. Cardiac [...] and date of were verified by the special warfare operator before the exam IMPRESSION ----- - Intrauterine [...] genetic. The patient was referred to the [facility] for suboptimal anatomy on an outside scan- [...] Pat. Name:Pepe AQUINO Date:03/24/2024 9:03am Pat. NO: [id number] MD:BIPIN RODRÍGUEZ [facility]Vika Esquivel RDMS, RVT :2000Age:23 ----- INDICATION ----- Anatomy Survey Maternal Obesity (BMI>40) Complicating CODING ----- Diagnoses Z3A.28: Weeks of gestation O99.213: Obesity complicating Z36.3: Encounter for screening formalformations Procedures 60578: Ultrasound, uterus, real time withimage documentation, and maternal evaluation plus detailed anatomic examination,transabdominal approach MATERNAL ASSESSMENT ----- Physical Exam Initial weight 315 lb METHOD ----- Transabdominal ultrasound examination ----- Ayala . Number of fetuses: 1 DATING ----- Method of dating:based on stated RONALD Prior assessment on:06/15/2024 GA by prior w + 1 d RONALD by prior [...] 3 lb 7 oz EFW by Hadlock ([id number]) Head / Face / Neck Biometry: Obstetrics And Gynecology Professor 6.7 mm CM 7.1 mm 62%Nicolaides Outer [...] / Thorax 4-chamber view. LVOT view. 3-vessel view.8-amvstj-cirdkgu view. Situs. High short axis view. Cardiac [...] and date of were verified by the special warfare operator beforethe exam IMPRESSION ----- - Intrauterine at [...] genetic. The patient was referred to the [facility] for suboptimal anatomy on an outsidescan- specifically [...] [employer] CHOICE POS II * Guarantor: [employer]) Account Type Relation to Patient Date of Phone Billing Address Corporate Employer ATTN: ALEX ANDRES [address] [address]
--- OUTSIDE RECORDS SUMMARY | 2024-05-31 11:07 | XMS_ITS | Data Portability ---
Author Organization [facility] [place] Address [address] [place] [address] [place] [address] Care Team Providers Care Faculty Criminal Justice Name Role Phone EJPhong INDU Primary Care Provider Assessment No assessment recorded. Plan of Treatment Reminders Order Date Submit Date Provider Last Modified By Organization Details Last Modified Time Details Appointments BLOOD PRESSURE CHECK 2024 09:45A M RN SCHEDULE Not available Not available Not available Lab None recorded. Referral None recorded. Procedures None recorded. Surgeries None recorded. Imaging non-stres s test 2024 025 [email or web address] [place], [address], [place], [address], 05/25/2024 02:27:33 US, obstetric , biophysic al profile + non-stres s test 2024 025 [email or web address] [place], [address], [place], [address], 05/24/2024 21:32:40 Medication Orders None recorded. Patient TargetsNo targets recorded. Patient InstructionsNo instructions recorded. Reason for Referral None Reported. Results Created Date Observation Date Name Description Value Unit Range Abnormal Flag Note LastModifiedBy Organization Detail LastModifiedTime 04/29/1904/29/2024 CBC W/DIF F WBC 12.6 10'3/ uL 3.5-10 .5 high Not Available [facility] (Lab) [address], [place], [address], 04/30/2024 05:22:54 04/29/19 25 04/29/2024 CBC W/DIF F RBC 5.04 10'6/ uL (based on docume nted legal sex) 3.80-5 .20 Not Available [facility] (Lab) [address], [place], [address], 04/30/2024 05:22:54 04/29/19 25 04/29/2024 CBC W/DIF F HGB 12.6 g/dL (based on docume nted legal sex) 11.6-1 5.4 Not Available [facility] (Lab) [address], [place], [address], 04/30/2024 05:22:54 04/29/19 25 04/29/2024 CBC W/DIF F HCT 40.2 % (based on docume nted legal sex) 34.0-4 5.0 Not Available [facility] (Lab) [address], [place], [address], 04/30/2024 05:22:54 04/29/19 25 04/29/2024 CBC W/DIF F MCV 79.8 fL 80.0-9 9.0 low Not Available [facility] (Lab) [address], [place], [address], 04/30/2024 05:22:54 04/29/19 25 04/29/2024 CBC W/DIF F MCH 25.0 pg 27.0-3 4.0 low Not Available [facility] (Lab) [address], [place], [address], 04/30/2024 05:22:54 04/29/19 25 04/29/2024 CBC W/DIF F MCHC 31.3 g/dL 32.0-3 5.5 low Not Available [facility] (Lab) [address], [place], [address], 04/30/2024 05:22:54 04/29/19 25 04/29/2024 CBC W/DIF F RDW 14.5 % 11.0-1 5.0 Not Available [facility] (Lab) [address] [facility], [place], [address], 04/30/2024 05:22:54 04/29/19 25 04/29/2024 CBC W/DIF F plt 307 10'3/ uL 150-40 0 Not Available [facility] (Lab) [address] [facility], [place], [address], 04/30/2024 05:22:54 04/29/19 25 04/29/2024 CBC W/DIF F MPV 11.7 fL 8.8-12 .1 Not Available [facility] (Lab) [address] [facility], [place], [address], 04/30/2024 05:22:54 04/29/19 25 04/29/2024 CBC W/DIF F neutrophils 70.2 % 34.0-7 3.0 Not Available [facility] (Lab) [address] [facility], [place], [address], 04/30/2024 05:22:54 04/29/19 25 04/29/2024 CBC W/DIF F lymphocytes 19.8 % 15.0-5 0.0 Not Available [facility] (Lab) [address] [facility] [address] [facility], [place], [address], 04/30/2024 05:22:54 04/29/19 25 04/29/2024 CBC W/DIF F monocytes 7.8 % 1.0-15 .0 Not Available [facility] (Lab) [address] [facility], [place], [address], 04/30/2024 05:22:54 04/29/19 25 04/29/2024 CBC W/DIF F eosinophils 1.3 % 0.0-8. 0 Not Available [facility] (Lab) [address] [facility], [place], [address], 04/30/2024 05:22:54 04/29/19 25 04/29/2024 CBC W/DIF F basophils 0.3 % 0.0-2. 0 Not Available [facility] (Lab) [address], [place], [address], 04/30/2024 05:22:54 04/29/19 25 04/29/2024 CBC W/DIF [...] separ ately if prese nt. Not Available [facility] (Lab) [address], [place], [address], 04/30/2024 05:22:54 04/29/19 25 04/29/2024 CBC W/DIF F absolute neutrophils 8.9 10'3/ uL 1.5-8. 0 high Not Available [facility] (Lab) [address], [place], [address], 04/30/2024 05:22:54 04/29/19 25 04/29/2024 CBC W/DIF F absolute lymphocytes 2.5 10'3/ uL 1.0-4. 0 Not Available [facility] (Lab) [address], [place], [address], 04/30/2024 05:22:54 04/29/19 25 04/29/2024 CBC W/DIF F absolute monocytes 1.0 10'3/ uL 0.2-1. 0 Not Available [facility] (Lab) [address], [place], [address], 04/30/2024 05:22:54 04/29/19 25 04/29/2024 CBC W/DIF F absolute eosinophils 0.2 10'3/ uL 0.0-0. 6 Not Available [facility] (Lab) [address], [place], [address], 04/30/2024 05:22:54 04/29/19 25 04/29/2024 CBC W/DIF F absolute basophils 0.0 10'3/ uL 0.0-0. 3 Not Available [facility] (Lab) [address] , [place], [address], 04/30/2024 05:22:54 04/29/19 25 04/29/2024 CBC W/DIF F absolute immature granulocytes 0.1 10'3/ uL 0.00-0 .10 Refer ence range s for nonbi nary/ inter sex or unspe cifie d gende r patie nts have not been estab lishe d. [facility] for range s estab lishe d for cisge nder patie nts and evalu ate in the clini yvette adalberto xt of the indiv idual patie nt: https ://amy chau book. nm.or g/Gen derX Not Available [facility] (Lab) [address], [place], [address], 04/30/2024 05:22:54 04/29/19 25 04/29/2024 URIC ACID uric acid 7.3 mg/dL 2.3-6. 6 high Not Available [facility] (Lab) [address] [place], [address], 04/30/2024 05:22:55 04/29/19 25 04/29/2024 CMP(C OMPRE HENSI VE METAB OLIC PANEL ) sodium 134 mmol/ L 133-14 6 Not Available [facility] (Lab) [address] [place], [address], 04/30/2024 05:22:55 04/29/19 25 04/29/2024 CMP(C OMPRE HENSI VE METAB OLIC PANEL ) potassium 4.4 mmol/ L 3.5-5. 1 Not Available [facility] (Lab) [address] [place], [address], 04/30/2024 05:22:55 04/29/19 25 04/29/2024 CMP(C OMPRE HENSI VE METAB OLIC PANEL ) chloride 104 mmol/ L 98-107 Not Available [facility] (Lab) [address] [facility], [place], [address], 04/30/2024 05:22:55 04/29/19 25 04/29/2024 CMP(C OMPRE HENSI VE METAB OLIC PANEL ) carbon dioxide 19 mmol/ L 21-31 low Not Available [facility] (Lab) [address] [facility], [place], [address], 04/30/2024 05:22:55 04/29/19 25 04/29/2024 CMP(C OMPRE HENSI VE METAB OLIC PANEL ) anion gap 11 mmol/ L 4-13 Not Available [facility] (Lab) [address] [facility], [place], [address], 04/30/2024 05:22:55 04/29/19 25 04/29/2024 CMP(C OMPRE HENSI VE METAB OLIC PANEL ) blood urea nitrogen 9 mg/dL 7-25 Not Available [facility] (Lab) [address], [place], [address], 04/30/2024 05:22:55 04/29/19 25 04/29/2024 CMP(C OMPRE HENSI VE METAB OLIC PANEL ) creatinine 0.67 mg/dL 0.60-1 .30 Not Available [facility] (Lab) [address] [facility], [place], [address], 04/30/2024 05:22:55 04/29/19 25 04/29/2024 CMP(C OMPRE HENSI VE METAB OLIC PANEL ) egfrcr (CKD-epi 2020) >90 mL/mi n/1.7 3_m2 >=60 Not Available [facility] (Lab) [address], [place], [address], 04/30/2024 05:22:55 04/29/19 25 04/29/2024 CMP(C OMPRE HENSI VE METAB OLIC PANEL ) calcium 9.4 mg/dL 8.3-10 .5 Not Available [facility] (Lab) [address] [facility], [place], [address], 04/30/2024 05:22:55 04/29/19 25 04/29/2024 CMP(C OMPRE HENSI VE METAB OLIC PANEL ) glucose 113 mg/dL 70-100 high Not Available [facility] (Lab) [address] [facility], [place], [address], 04/30/2024 05:22:55 04/29/19 25 04/29/2024 CMP(C OMPRE HENSI VE METAB OLIC PANEL ) protein, total 6.3 g/dL 6.4-8. 3 low Not Available [facility] (Lab) [address] [facility], [place], [address], 04/30/2024 05:22:55 04/29/19 25 04/29/2024 CMP(C OMPRE HENSI VE METAB OLIC PANEL ) albumin 3.3 g/dL 3.5-5. 0 low Not Available [facility] (Lab) [address] [place], [address], 04/30/2024 05:22:55 04/29/19 25 04/29/2024 CMP(C OMPRE HENSI VE METAB OLIC PANEL ) ALT 19 units /L 9-43 Not Available [facility] (Lab) [address] [place], [address], 04/30/2024 05:22:55 04/29/19 25 04/29/2024 CMP(C OMPRE HENSI VE METAB OLIC PANEL ) alkaline phosphatase 94 units /L 34-104 Not Available [facility] (Lab) [address] [place], [address], 04/30/2024 05:22:55 04/29/19 25 04/29/2024 CMP(C OMPRE HENSI VE METAB OLIC PANEL ) AST 30 units /L 13-39 Not Available [facility] (Lab) [address], [place], [address], 04/30/2024 05:22:55 04/29/1904/29/2024 CMP(C OMPRE HENSI VE METAB OLIC PANEL ) bilirubin, total 0.3 mg/dL 0.2-1. 2 Not Available [facility] (Lab) [address], [place], [address], 04/30/2024 05:22:55 05/06/1905/06/2024 CBC W/DIF F WBC 10.8 10'3/ uL 3.5-10 .5 high Not Available [facility] (Lab) [address], [place], [address], 05/07/2024 05:11:21 05/06/19 25 05/06/2024 CBC W/DIF F RBC 4.93 10'6/ uL (based on docume nted legal sex) 3.80-5 .20 Not Available [facility] (Lab) [address], [place], [address], 05/07/2024 05:11:21 05/06/1905/06/2024 CBC W/DIF F HGB 12.5 g/dL (based on docume nted legal sex) 11.6-1 5.4 Not Available [facility] (Lab) [address] [place], [address], 05/07/2024 05:11:21 05/06/1905/06/2024 CBC W/DIF F HCT 39.5 % (based on docume nted legal sex) 34.0-4 5.0 Not Available [facility] (Lab) [address] [place], [address], 05/07/2024 05:11:21 05/06/19 25 05/06/2024 CBC W/DIF F MCV 80.1 fL 80.0-9 9.0 Not Available [facility] (Lab) [address] [place], [address], 05/07/2024 05:11:21 05/06/19 25 05/06/2024 CBC W/DIF F MCH 25.4 pg 27.0-3 4.0 low Not Available [facility] (Lab) [address] [facility], [place], [address], 05/07/2024 05:11:21 05/06/19 25 05/06/2024 CBC W/DIF F MCHC 31.6 g/dL 32.0-3 5.5 low Not Available [facility] (Lab) [address] [facility], [place], [address], 05/07/2024 05:11:21 05/06/19 25 05/06/2024 CBC W/DIF F RDW 14.8 % 11.0-1 5.0 Not Available [facility] (Lab) [address] [facility], [place], [address], 05/07/2024 05:11:21 05/06/19 25 05/06/2024 CBC W/DIF F plt 259 10'3/ uL 150-40 0 Not Available [facility] (Lab) [address] [facility], [place], [address], 05/07/2024 05:11:21 05/06/19 25 05/06/2024 CBC W/DIF F MPV 11.9 fL 8.8-12 .1 Not Available [facility] (Lab) [address] [facility], [place], [address], 05/07/2024 05:11:21 05/06/19 25 05/06/2024 CBC W/DIF F neutrophils 71.3 % 34.0-7 3.0 Not Available [facility] (Lab) [address] [place], [address], 05/07/2024 05:11:21 05/06/19 25 05/06/2024 CBC W/DIF F lymphocytes 19.2 % 15.0-5 0.0 Not Available [facility] (Lab) [address] [facility], [place], [address], 05/07/2024 05:11:21 05/06/19 25 05/06/2024 CBC W/DIF F monocytes 7.3 % 1.0-15 .0 Not Available [facility] (Lab) [address] [facility], [place], [address], 05/07/2024 05:11:21 05/06/19 25 05/06/2024 CBC W/DIF F eosinophils 1.1 % 0.0-8. 0 Not Available [facility] (Lab) [address] [facility] [address], [place], [address], 05/07/2024 05:11:21 05/06/19 25 05/06/2024 CBC W/DIF F basophils 0.4 % 0.0-2. 0 Not Available [facility] (Lab) [address] [facility] [address], [place], [address], 05/07/2024 05:11:21 05/06/19 25 05/06/2024 CBC W/DIF [...] separ ately if prese nt. Not Available [facility] (Lab) [address] [facility], [place], [address], 05/07/2024 05:11:21 05/06/19 25 05/06/2024 CBC W/DIF F absolute neutrophils 7.7 10'3/ uL 1.5-8. 0 Not Available [facility] (Lab) [address] [facility], [place], [address], 05/07/2024 05:11:21 05/06/19 25 05/06/2024 CBC W/DIF F absolute lymphocytes 2.1 10'3/ uL 1.0-4. 0 Not Available [facility] (Lab) [address] [place], [address], 05/07/2024 05:11:21 05/06/19 25 05/06/2024 CBC W/DIF F absolute monocytes 0.8 10'3/ uL 0.2-1. 0 Not Available [facility] (Lab) [address], [place], [address], 05/07/2024 05:11:21 05/06/19 25 05/06/2024 CBC W/DIF F absolute eosinophils 0.1 10'3/ uL 0.0-0. 6 Not Available [facility] (Lab) [address], [place], [address], 05/07/2024 05:11:21 05/06/19 25 05/06/2024 CBC W/DIF F absolute basophils 0.0 10'3/ uL 0.0-0. 3 Not Available [facility] (Lab) [address], [place], [address], 05/07/2024 05:11:21 05/06/19 25 05/06/2024 CBC W/DIF F absolute immature granulocytes 0.1 [...] chau book. nm.or g/Gen derX Not Available [facility] (Lab) [address], [place], [address], 05/07/2024 05:11:21 05/06/19 25 05/06/2024 URIC ACID uric acid 6.0 mg/dL 2.3-6. 6 Not Available [facility] (Lab) [address] [facility], [place], [address], 05/07/2024 05:11:21 05/06/19 25 05/06/2024 CMP(C OMPRE HENSI VE METAB OLIC PANEL ) sodium 136 mmol/ L 133-14 6 Not Available [facility] (Lab) [address] [facility], [place], [address], 05/07/2024 05:11:22 05/06/19 25 05/06/2024 CMP(C OMPRE HENSI VE METAB OLIC PANEL ) potassium 4.4 mmol/ L 3.5-5. 1 Not Available [facility] (Lab) [address] [facility], [place], [address], 05/07/2024 05:11:22 05/06/19 25 05/06/2024 CMP(C OMPRE HENSI VE METAB OLIC PANEL ) chloride 104 mmol/ L 98-107 Not Available [facility] (Lab) [address] [facility], [place], [address], 05/07/2024 05:11:22 05/06/19 25 05/06/2024 CMP(C OMPRE HENSI VE METAB OLIC PANEL ) carbon dioxide 21 mmol/ L 21-31 Not Available [facility] (Lab) [address] [facility], [place], [address], 05/07/2024 05:11:22 05/06/19 25 05/06/2024 CMP(C OMPRE HENSI VE METAB OLIC PANEL ) anion gap 11 mmol/ L 4-13 Not Available [facility] (Lab) [address] [facility], [place], [address], 05/07/2024 05:11:22 05/06/19 25 05/06/2024 CMP(C OMPRE HENSI VE METAB OLIC PANEL ) blood urea nitrogen 9 mg/dL 7-25 Not Available [facility] (Lab) [address] [facility] [address], [place], [address], 05/07/2024 05:11:22 05/06/19 25 05/06/2024 CMP(C OMPRE HENSI VE METAB OLIC PANEL ) creatinine 0.65 mg/dL 0.60-1 .30 Not Available [facility] (Lab) [address] [facility], [place], [address], 05/07/2024 05:11:22 05/06/19 25 05/06/2024 CMP(C OMPRE HENSI VE METAB OLIC PANEL ) egfrcr (CKD-epi 2020) >90 mL/mi n/1.7 3_m2 >=60 Not Available [facility] (Lab) [address] [facility] [address], [place], [address], 05/07/2024 05:11:22 05/06/19 25 05/06/2024 CMP(C OMPRE HENSI VE METAB OLIC PANEL ) calcium 9.5 mg/dL 8.3-10 .5 Not Available [facility] (Lab) [address] [facility], [place], [address], 05/07/2024 05:11:22 05/06/19 25 05/06/2024 CMP(C OMPRE HENSI VE METAB OLIC PANEL ) glucose 106 mg/dL 70-100 high Not Available [facility] (Lab) [address] [facility] [address], [place], [address], 05/07/2024 05:11:22 05/06/19 25 05/06/2024 CMP(C OMPRE HENSI VE METAB OLIC PANEL ) protein, total 6.0 g/dL 6.4-8. 3 low Not Available [facility] (Lab) [address] [facility], [place], [address], 05/07/2024 05:11:22 05/06/19 25 05/06/2024 CMP(C OMPRE HENSI VE METAB OLIC PANEL ) albumin 3.3 g/dL 3.5-5. 0 low Not Available [facility] (Lab) [address] [place], [address], 05/07/2024 05:11:22 05/06/19 25 05/06/2024 CMP(C OMPRE HENSI VE METAB OLIC PANEL ) ALT 17 units /L 9-43 Not Available [facility] (Lab) [address] [facility], [place], [address], 05/07/2024 05:11:22 05/06/19 25 05/06/2024 CMP(C OMPRE HENSI VE METAB OLIC PANEL ) alkaline phosphatase 106 units /L 34-104 high Not Available [facility] (Lab) [address] [facility], [place], [address], 05/07/2024 05:11:22 05/06/19 25 05/06/2024 CMP(C OMPRE HENSI VE METAB OLIC PANEL ) AST 23 units /L 13-39 Not Available [facility] (Lab) [address] [facility], [place], [address], 05/07/2024 05:11:22 05/06/19 25 05/06/2024 CMP(C OMPRE HENSI VE METAB OLIC PANEL ) bilirubin, total 0.3 mg/dL 0.2-1. 2 Not Available [facility] (Lab) [address] [facility], [place], [address], 05/07/2024 05:11:22 05/13/19 25 05/13/2024 CBC W/DIF F WBC 12.4 10'3/ uL 3.5-10 .5 high Not Available [facility] (Lab) [address] [place], [address], 05/14/2024 05:01:11 05/13/19 25 05/13/2024 CBC W/DIF F RBC 5.27 10'6/ uL (based on docume nted legal sex) 3.80-5 .20 high Not Available [facility] (Lab) [address] [facility], [place], [address], 05/14/2024 05:01:11 05/13/19 25 05/13/2024 CBC W/DIF F HGB 13.5 g/dL (based on docume nted legal sex) 11.6-1 5.4 Not Available [facility] (Lab) [address], [place], [address], 05/14/2024 05:01:11 05/13/19 25 05/13/2024 CBC W/DIF F HCT 43.0 % (based on docume nted legal sex) 34.0-4 5.0 Not Available [facility] (Lab) [address], [place], [address], 05/14/2024 05:01:11 05/13/19 25 05/13/2024 CBC W/DIF F MCV 81.6 fL 80.0-9 9.0 Not Available [facility] (Lab) [address], [place], [address], 05/14/2024 05:01:11 05/13/1905/13/2024 CBC W/DIF F MCH 25.6 pg 27.0-3 4.0 low Not Available [facility] (Lab) [address], [place], [address], 05/14/2024 05:01:11 05/13/19 25 05/13/2024 CBC W/DIF F MCHC 31.4 g/dL 32.0-3 5.5 low Not Available [facility] (Lab) [address] [place], [address], 05/14/2024 05:01:11 05/13/19 25 05/13/2024 CBC W/DIF F RDW 14.7 % 11.0-1 5.0 Not Available [facility] (Lab) [address] [place], [address], 05/14/2024 05:01:11 05/13/19 25 05/13/2024 CBC W/DIF F plt 289 10'3/ uL 150-40 0 Not Available [facility] (Lab) [address] [place], [address], 05/14/2024 05:01:11 05/13/19 25 05/13/2024 CBC W/DIF F MPV 12.1 fL 8.8-12 .1 Not Available [facility] (Lab) [address] [facility], [place], [address], 05/14/2024 05:01:11 05/13/19 25 05/13/2024 CBC W/DIF F neutrophils 69.6 % 34.0-7 3.0 Not Available [facility] (Lab) [address] [facility], [place], [address], 05/14/2024 05:01:11 05/13/19 25 05/13/2024 CBC W/DIF F lymphocytes 21.2 % 15.0-5 0.0 Not Available [facility] (Lab) [address] [facility], [place], [address], 05/14/2024 05:01:11 05/13/19 25 05/13/2024 CBC W/DIF F monocytes 6.7 % 1.0-15 .0 Not Available [facility] (Lab) [address] [place], [address], 05/14/2024 05:01:11 05/13/19 25 05/13/2024 CBC W/DIF F eosinophils 1.7 % 0.0-8. 0 Not Available [facility] (Lab) [address] [place], [address], 05/14/2024 05:01:11 05/13/19 25 05/13/2024 CBC W/DIF F basophils 0.2 % 0.0-2. 0 Not Available [facility] (Lab) [address] [place], [address], 05/14/2024 05:01:11 05/13/19 25 05/13/2024 CBC W/DIF [...] separ ately if prese nt. Not Available [facility] (Lab) [address] [facility], [place], [address], 05/14/2024 05:01:11 05/13/19 25 05/13/2024 CBC W/DIF F absolute neutrophils 8.6 10'3/ uL 1.5-8. 0 high Not Available [facility] (Lab) [address] [facility], [place], [address], 05/14/2024 05:01:11 05/13/19 25 05/13/2024 CBC W/DIF F absolute lymphocytes 2.6 10'3/ uL 1.0-4. 0 Not Available [facility] (Lab) [address] [facility], [place], [address], 05/14/2024 05:01:11 05/13/19 25 05/13/2024 CBC W/DIF F absolute monocytes 0.8 10'3/ uL 0.2-1. 0 Not Available [facility] (Lab) [address] [facility], [place], [address], 05/14/2024 05:01:11 05/13/19 25 05/13/2024 CBC W/DIF F absolute eosinophils 0.2 10'3/ uL 0.0-0. 6 Not Available [facility] (Lab) [address] [place], [address], 05/14/2024 05:01:11 05/13/19 25 05/13/2024 CBC W/DIF F absolute basophils 0.0 10'3/ uL 0.0-0. 3 Not Available [facility] (Lab) [address] [place], [address], 05/14/2024 05:01:11 05/13/19 25 05/13/2024 CBC W/DIF F absolute immature granulocytes 0.1 10'3/ uL 0.00-0 .10 Refer ence range s for nonbi nary/ inter sex or unspe cifie d gende r patie nts have not been estab lishe d. [facility] range s estab lishe d for cisge nder patie nts and evalu ate in the clini yvette adalberto xt of the indiv idual patie nt: https ://la kandi book. nm.or g/Gen derX Not Available [facility] (Lab) [address] [facility], [place], [address], 05/14/2024 05:01:11 05/13/19 25 05/13/2024 CMP(C OMPRE HENSI VE METAB OLIC PANEL ) sodium 134 mmol/ L 133-14 6 Not Available [facility] (Lab) [address] [place], [address], 05/14/2024 05:01:12 05/13/19 25 05/13/2024 CMP(C OMPRE HENSI VE METAB OLIC PANEL ) potassium 4.3 mmol/ L 3.5-5. 1 Not Available [facility] (Lab) [address] [place], [address], 05/14/2024 05:01:12 05/13/19 25 05/13/2024 CMP(C OMPRE HENSI VE METAB OLIC PANEL ) chloride 105 mmol/ L 98-107 Not Available [facility] (Lab) [address] [place], [address], 05/14/2024 05:01:12 05/13/19 25 05/13/2024 CMP(C OMPRE HENSI VE METAB OLIC PANEL ) carbon dioxide 21 mmol/ L 21-31 Not Available [facility] (Lab) [address] [place], [address], 05/14/2024 05:01:12 05/13/19 25 05/13/2024 CMP(C OMPRE HENSI VE METAB OLIC PANEL ) anion gap 8 mmol/ L 4-13 Not Available [facility] (Lab) [address] [facility], [place], [address], 05/14/2024 05:01:12 05/13/19 25 05/13/2024 CMP(C OMPRE HENSI VE METAB OLIC PANEL ) blood urea nitrogen 11 mg/dL 7-25 Not Available [facility] (Lab) [address] [facility], [place], [address], 05/14/2024 05:01:12 05/13/19 25 05/13/2024 CMP(C OMPRE HENSI VE METAB OLIC PANEL ) creatinine 0.73 mg/dL 0.60-1 .30 Not Available [facility] (Lab) [address] [facility], [place], [address], 05/14/2024 05:01:12 05/13/19 25 05/13/2024 CMP(C OMPRE HENSI VE METAB OLIC PANEL ) egfrcr (CKD-epi 2020) >90 mL/mi n/1.7 3_m2 >=60 Not Available [facility] (Lab) [address] [facility], [place], [address], 05/14/2024 05:01:12 05/13/19 25 05/13/2024 CMP(C OMPRE HENSI VE METAB OLIC PANEL ) calcium 9.5 mg/dL 8.3-10 .5 Not Available [facility] (Lab) [address] [place], [address], 05/14/2024 05:01:12 05/13/19 25 05/13/2024 CMP(C OMPRE HENSI VE METAB OLIC PANEL ) glucose 95 mg/dL 70-100 Not Available [facility] (Lab) [address] [facility], [place], [address], 05/14/2024 05:01:12 05/13/19 25 05/13/2024 CMP(C OMPRE HENSI VE METAB OLIC PANEL ) protein, total 6.2 g/dL 6.4-8. 3 low Not Available [facility] (Lab) [address] [facility], [place], [address], 05/14/2024 05:01:12 05/13/19 25 05/13/2024 CMP(C OMPRE HENSI VE METAB OLIC PANEL ) albumin 3.3 g/dL 3.5-5. 0 low Not Available [facility] (Lab) [address], [place], [address], 05/14/2024 05:01:12 05/13/19 25 05/13/2024 CMP(C OMPRE HENSI VE METAB OLIC PANEL ) ALT 17 units /L 9-43 Not Available [facility] (Lab) [address], [place], [address], 05/14/2024 05:01:12 05/13/19 25 05/13/2024 CMP(C OMPRE HENSI VE METAB OLIC PANEL ) alkaline phosphatase 117 units /L 34-104 high Not Available [facility] (Lab) [address], [place], [address], 05/14/2024 05:01:12 05/13/19 25 05/13/2024 CMP(C OMPRE HENSI VE METAB OLIC PANEL ) AST 23 units /L 13-39 Not Available [facility] (Lab) [address], [place], [address], 05/14/2024 05:01:12 05/13/19 25 05/13/2024 CMP(C OMPRE HENSI VE METAB OLIC PANEL ) bilirubin, total 0.3 mg/dL 0.2-1. 2 Not Available [facility] (Lab) [address] [place], [address], 05/14/2024 05:01:12 05/13/19 25 05/13/2024 URIC ACID uric acid 6.1 mg/dL 2.3-6. 6 Not Available [facility] (Lab) [address] [place], [address], 05/14/2024 05:01:12 05/17/19 25 05/17/2024 CULTU RE: GROUP B STREP SCREE N, [...] Resul ting Lab: [facility] [address] [facility] [address] Tel: CULTU RE ----- ----- ----- --- No Group B strep isola loc at 2 days (margo ctive broth enhan cemen t) Not Available [facility] (Lab) [address], [place], [address], 05/21/2024 01:44:46 05/20/1905/20/2024 CMP/C BC/UR IC ACID WBC 11.4 10'3/ uL 3.5-10 .5 high Not Available [facility] (Lab) [address] [place], [address], 05/21/2024 05:16:05 05/20/19 25 05/20/2024 CMP/C BC/UR IC ACID RBC 5.02 10'6/ uL (based on docume nted legal sex) 3.80-5 .20 Not Available [facility] (Lab) [address] [place], [address], 05/21/2024 05:16:05 05/20/19 25 05/20/2024 CMP/C BC/UR IC ACID HGB 12.8 g/dL (based on docume nted legal sex) 11.6-1 5.4 Not Available [facility] (Lab) [address] [place], [address], 05/21/2024 05:16:05 05/20/1905/20/2024 CMP/C BC/UR IC ACID HCT 40.2 % (based on docume nted legal sex) 34.0-4 5.0 Not Available [facility] (Lab) [address], [place], [address], 05/21/2024 05:16:05 05/20/1905/20/2024 CMP/C BC/UR IC ACID MCV 80.1 fL 80.0-9 9.0 Not Available [facility] (Lab) [address] [place], [address], 05/21/2024 05:16:05 05/20/19 25 05/20/2024 CMP/C BC/UR IC ACID MCH 25.5 pg 27.0-3 4.0 low Not Available [facility] (Lab) [address], [place], [address], 05/21/2024 05:16:05 05/20/19 25 05/20/2024 CMP/C BC/UR IC ACID MCHC 31.8 g/dL 32.0-3 5.5 low Not Available [facility] (Lab) [address] [place], [address], 05/21/2024 05:16:05 05/20/19 25 05/20/2024 CMP/C BC/UR IC ACID RDW 14.7 % 11.0-1 5.0 Not Available [facility] (Lab) [address] [place], [address], 05/21/2024 05:16:05 05/20/1905/20/2024 CMP/C BC/UR IC ACID plt 257 10'3/ uL 150-40 0 Not Available [facility] (Lab) [address] [place], [address], 05/21/2024 05:16:05 05/20/1905/20/2024 CMP/C BC/UR IC ACID MPV 12.0 fL 8.8-12 .1 Not Available [facility] (Lab) [address] [place], [address], 05/21/2024 05:16:05 05/20/19 25 05/20/2024 CMP/C BC/UR IC ACID neutrophils 68.9 % 34.0-7 3.0 Not Available [facility] (Lab) [address] [place], [address], 05/21/2024 05:16:05 05/20/19 25 05/20/2024 CMP/C BC/UR IC ACID lymphocytes 20.8 % 15.0-5 0.0 Not Available [facility] (Lab) [address], [place], [address], 05/21/2024 05:16:05 05/20/1905/20/2024 CMP/C BC/UR IC ACID monocytes 7.7 % 1.0-15 .0 Not Available [facility] (Lab) [address] [place], [address], 05/21/2024 05:16:05 05/20/19 25 05/20/2024 CMP/C BC/UR IC ACID eosinophils 1.5 % 0.0-8. 0 Not Available [facility] (Lab) [address] [place], [address], 05/21/2024 05:16:05 05/20/1905/20/2024 CMP/C BC/UR IC ACID basophils 0.4 % 0.0-2. 0 Not Available [facility] (Lab) [address] [place], [address], 05/21/2024 05:16:05 05/20/1905/20/2024 CMP/C BC/UR IC ACID immature granulocytes 0.7 % no define d refere nce range Immat ure Granu locyt es (IG) repre sents autom ated enume ratio n of Metam yeloc ytes, Myelo cytes and Promy elocy dereje when IG is < 5%. Blast s are not inclu ded in IG and repor loc separ ately if prese nt. Not Available [facility] (Lab) [address], [place], [address], 05/21/2024 05:16:05 05/20/19 25 05/20/2024 CMP/C BC/UR IC ACID absolute neutrophils 7.8 10'3/ uL 1.5-8. 0 Not Available [facility] (Lab) [address], [place], [address], 05/21/2024 05:16:05 05/20/1905/20/2024 CMP/C BC/UR IC ACID absolute lymphocytes 2.4 10'3/ uL 1.0-4. 0 Not Available [facility] (Lab) [address], [place], [address], 05/21/2024 05:16:05 05/20/1905/20/2024 CMP/C BC/UR IC ACID absolute monocytes 0.9 10'3/ uL 0.2-1. 0 Not Available [facility] (Lab) [address], [place], [address], 05/21/2024 05:16:05 05/20/19 25 05/20/2024 CMP/C BC/UR IC ACID absolute eosinophils 0.2 10'3/ uL 0.0-0. 6 Not Available [facility] (Lab) [address], [place], [address], 05/21/2024 05:16:05 05/20/1905/20/2024 CMP/C BC/UR IC ACID absolute basophils 0.1 10'3/ uL 0.0-0. 3 Not Available [facility] (Lab) [address] [place], [address], 05/21/2024 05:16:05 05/20/1905/20/2024 CMP/C BC/UR IC ACID absolute immature granulocytes 0.1 10'3/ uL 0.00-0 .10 Refer ence range s for nonbi nary/ inter sex or unspe cifie d gende r patie nts have not been estab lishe d. Mirza e refer to the [facility] wing table for range s estab lishe d for cisge nder patie nts and evalu ate in the clini yvette adalberto xt of the indiv idual patie nt: https :[email or web address] chau book. nm.or g/Gen derX Not Available [facility] (Lab) [address], [place], [address], 05/21/2024 05:16:05 05/20/19 25 05/20/2024 CMP/C BC/UR IC ACID uric acid 6.2 mg/dL 2.3-6. 6 Not Available [facility] (Lab) [address] [place], [address], 05/21/2024 05:16:05 05/20/19 25 05/20/2024 CMP/C BC/UR IC ACID sodium 133 mmol/ L 133-14 6 Not Available [facility] (Lab) [address] [place], [address], 05/21/2024 05:16:05 05/20/19 25 05/20/2024 CMP/C BC/UR IC ACID potassium 4.5 mmol/ L 3.5-5. 1 Not Available [facility] (Lab) [address] [place], [address], 05/21/2024 05:16:05 05/20/19 25 05/20/2024 CMP/C BC/UR IC ACID chloride 104 mmol/ L 98-107 Not Available [facility] (Lab) [address] [place], [address], 05/21/2024 05:16:05 05/20/19 25 05/20/2024 CMP/C BC/UR IC ACID carbon dioxide 20 mmol/ L 21-31 low Not Available [facility] (Lab) [address], [place], [address], 05/21/2024 05:16:05 05/20/1905/20/2024 CMP/C BC/UR IC ACID anion gap 9 mmol/ L 4-13 Not Available [facility] (Lab) [address], [place], [address], 05/21/2024 05:16:05 05/20/19 25 05/20/2024 CMP/C BC/UR IC ACID blood urea nitrogen 11 mg/dL 7-25 Not Available [facility] (Lab) [address], [place], [address], 05/21/2024 05:16:05 05/20/1905/20/2024 CMP/C BC/UR IC ACID creatinine 0.69 mg/dL 0.60-1 .30 Not Available [facility] (Lab) [address], [place], [address], 05/21/2024 05:16:05 05/20/19 25 05/20/2024 CMP/C BC/UR IC ACID egfrcr (CKD-epi 2020) >90 mL/mi n/1.7 3_m2 >=60 Not Available [facility] (Lab) [address], [place], [address], 05/21/2024 05:16:05 05/20/1905/20/2024 CMP/C BC/UR IC ACID calcium 9.3 mg/dL 8.3-10 .5 Not Available [facility] (Lab) [address], [place], [address], 05/21/2024 05:16:05 05/20/1905/20/2024 CMP/C BC/UR IC ACID glucose 94 mg/dL 70-100 Not Available [facility] (Lab) [address] [place], [address], 05/21/2024 05:16:05 05/20/1905/20/2024 CMP/C BC/UR IC ACID protein, total 5.9 g/dL 6.4-8. 3 low Not Available [facility] (Lab) [address] [place], [address], 05/21/2024 05:16:05 05/20/19 25 05/20/2024 CMP/C BC/UR IC ACID albumin 3.0 g/dL 3.5-5. 0 low Not Available [facility] (Lab) [address], [place], [address], 05/21/2024 05:16:05 05/20/19 25 05/20/2024 CMP/C BC/UR IC ACID ALT 13 units /L 9-43 Not Available [facility] (Lab) [address], [place], [address], 05/21/2024 05:16:05 05/20/19 25 05/20/2024 CMP/C BC/UR IC ACID alkaline phosphatase 122 units /L 34-104 high Not Available [facility] (Lab) [address], [place], [address], 05/21/2024 05:16:05 05/20/19 25 05/20/2024 CMP/C BC/UR IC ACID AST 21 units /L 13-39 Not Available [facility] (Lab) [address] [place], [address], 05/21/2024 05:16:05 05/20/19 25 05/20/2024 CMP/C BC/UR IC ACID bilirubin, total 0.2 mg/dL 0.2-1. 2 Not Available [facility] (Lab) [address] [place], [address], 05/21/2024 05:16:05 04/23/19 25 04/23/2024 imagi ng/di agnos tic resul t No observ ation record ed. [facility] [address], [place], [address], 04/25/2024 10:48:45 04/27/19 25 04/27/2024 US, obste tric, bioph ysica l profi le + non-s tress test No observ ation record ed. [email or web address] [place] [address], [place], [address], 04/27/2024 17:41:59 04/27/19 25 04/27/2024 US, obste tric, bioph ysica l profi le + non-s tress test No observ ation record ed. [email or web address] [address], [place], [address], 04/27/2024 21:32:25 04/27/19 25 04/27/2024 non-s tress test No observ ation record ed. [email or web address] [place] [address], [place], [address], 04/27/2024 14:30:50 04/29/19 25 04/29/2024 non-s tress test No observ ation record ed. [address], [place], [address], 04/29/2024 14:47:44 04/29/19 25 04/29/2024 non-s tress test No observ ation record ed. [email or web address] [place] [address], [place], [address], 04/29/2024 14:54:57 05/03/19 25 05/03/2024 US, obste tric, bioph ysica l profi le + non-s tress test No observ ation record ed. [email or web address] [place] [address], [place], [address], 05/03/2024 17:58:34 05/03/19 25 05/03/2024 US, obste tric, bioph ysica l profi le + non-s tress test No observ ation record ed. [email or web address] [address], [place], [address], 05/05/2024 21:12:06 05/03/19 25 05/03/2024 non-s tress test No observ ation record ed. [email or web address] [place] [address], [place], [address], 05/03/2024 12:26:44 05/06/19 25 05/06/2024 non-s tress test No observ ation record ed. [email or web address] [place] [address], [place], [address], 05/06/2024 10:57:38 05/10/19 25 05/10/2024 US, obste tric, bioph ysica l profi le + non-s tress test No observ ation record ed. [email or web address] [place] [address], [place], [address], 05/10/2024 16:26:01 05/10/19 25 05/10/2024 US, obste tric, bioph ysica l profi le + non-s tress test No observ ation record ed. [email or web address] [address], [place], [address], 05/10/2024 23:42:06 05/10/19 25 05/10/2024 non-s tress test No observ ation record ed. [email or web address] [place] [address], [place], [address], 05/10/2024 11:49:04 05/13/19 25 05/13/2024 non-s tress test No observ ation record ed. [email or web address] [place] [address], [place], [address], 05/13/2024 16:47:38 05/17/19 25 05/17/2024 US, obste tric, follo w-up No observ ation record ed. [email or web address] [place] [address], [place], [address], 05/17/2024 13:56:22 05/17/19 25 05/17/2024 US, obste tric, follo w-up No observ ation record ed. [email or web address] [address], [place], [address], 05/18/2024 12:41:00 05/17/1905/17/2024 non-s tress test No observ ation record ed. [email or web address] [place] [address], [place], [address], 05/17/2024 11:58:36 05/17/19 25 05/17/2024 imagi ng/di agnos tic resul t No observ ation record ed. [place] [id number], [place], [address], 05/18/2024 12:48:36 05/17/19 25 05/17/2024 imagi ng/di agnos tic resul t No observ ation record ed. [facility] [address], [place], [address], 05/18/2024 12:48:13 05/20/1905/20/2024 non-s tress test No observ ation record ed. [email or web address] [place] [address], [place], [address], 05/20/2024 11:11:16 05/24/19 25 05/24/2024 US, richi vaca, bioph ysica l profi le + non-s tress test No observ ation record ed. [email or web address] [place] [address], [place], [address], 05/24/2024 12:56:50 05/24/19 25 05/24/2024 US, obste tric, bioph ysica l profi le + non-s tress test No observ ation record ed. [email or web address] [address], [place], [address], 05/25/2024 12:54:25 05/24/19 25 05/24/2024 non-s tress test No observ ation record ed. [email or web address] [place] [address], [place], [address], 05/24/2024 11:52:16 Result Notes None recorded. Problems Name Problem SNOMED Code Status Onset Date Resolution Date Notes Provider Name and Address Organization Details Recorded Time 26433088 Active 2023 Carmela Ryder null, [facility] 4 12:23:09 Body mass index 40+ - severely obese 385735960 Active testing @ 34wks Odilia Peña [facility], [facility] 4 15:01:19 Body mass index 40+ - severely obese 215128750 Active testing @ 34wks Odilia Peña [facility], [facility] 4 15:01:19 Alpha thalassem ia 70944695 Active 2023 silent carrier, low risk Lisbeth Wise null, [facility] 4 10:09:47 Gestation al diabetes mellitus 77680034 Active BS QID and serial growth pt scheduled [facility] 04/22/24 Lantus 10u in AM, 25u @ HS DT referral faxed 04/16 [facility] 04/22 Appt BIPIN RODRÍGUEZ MD [address], [place], [address], [facility] 5 11:58:23 Gestation al diabetes mellitus 81449654 Active BS QID and serial growth pt scheduled [facility]hum[facility] 04/22/24 Lantus 10u in AM, 25u @ HS DT referral faxed 04/16 [facility] 04/22 Appt BIPIN RODRÍGUEZ MD [address], [place], [address], [place] [facility] 5 11:58:23 Pre-eclam psia 712037864 Active LD labs 0.75 2xwkly testing Odilia roldan, [facility] 5 18:10:41 Pre-eclam psia 303969441 Active LD labs 0.75 2xwkly testing Odilia Peña [facility], [facility] 5 18:10:41 Problem Notes None recorded. Procedures Surgical History Date Name Laterality Status Provider Name and Address Organization Details Recorded Time [address] [facility] 10/29/2023 12:39:09 3 Date of Last Pap Smear completed [facility] 10/29/2023 12:04:48 [address] [facility] 12/03/2023 12:46:10 Imaging Results Imaging Date Name Status LastModified by Organiz ation Details LastModified Time 04/23/2024 imaging/diagnos tic result completed [facility] [address], [place], [address], 04/25/2024 10:48:45 04/27/2024 US, obstetric, biophysical profile + non-stress test completed [email or web address] [place] [address], [place], [address], 04/27/2024 17:41:59 04/27/2024 US, obstetric, biophysical profile + non-stress test completed [email or web address] [address], [place], [address], 04/27/2024 21:32:25 04/27/2024 non-stress test completed [email or web address] [place] [address], [place], [address], 04/27/2024 14:30:50 04/29/2024 non-stress test completed [address], [place], [address], 04/29/2024 14:47:44 04/29/2024 non-stress test completed [email or web address] [place] [address], [place], [address], 04/29/2024 14:54:57 05/03/2024 US, obstetric, biophysical profile + non-stress test completed [email or web address] [place] [address], [place], [address], 05/03/2024 17:58:34 05/03/2024 US, obstetric, biophysical profile + non-stress test completed [email or web address] [address], [place], [address], 05/05/2024 21:12:06 05/03/2024 non-stress test completed [email or web address] [place] [address], [place], [address], 05/03/2024 12:26:44 05/06/2024 non-stress test completed [place] [address], [place], [address], 05/06/2024 10:57:38 05/10/2024 US, obstetric, biophysical profile + non-stress test completed [email or web address] [place] [address], [place], [address], 05/10/2024 16:26:01 05/10/2024 US, obstetric, biophysical profile + non-stress test completed [email or web address] [address], [place], [address], 05/10/2024 23:42:06 05/10/2024 non-stress test completed [email or web address] [place] [address], [place], [address], 05/10/2024 11:49:04 05/13/2024 non-stress test [email or web address] [place] [address], [place], [address], 05/13/2024 16:47:38 05/17/2024 US, obstetric, follow-up completed [email or web address] [place] [address], [place], [address], 05/17/2024 13:56:22 05/17/2024 US, obstetric, follow-up completed [email or web address] [address], [place], [address], 05/18/2024 12:41:00 05/17/2024 non-stress test completed [email or web address] [place] [address], [place], [address], 05/17/2024 11:58:36 05/17/2024 imaging/diagnos tic result completed [facility] [address], [place], [address], 05/18/2024 12:48:36 05/17/2024 imaging/diagnos tic result completed [facility] [address], [place], [address], 05/18/2024 12:48:13 05/20/2024 non-stress test completed [place] [address], [place], [address], 05/20/2024 11:11:16 05/24/2024 US, obstetric, biophysical profile + non-stress test completed [email or web address] [place] [address], [place], [address], 05/24/2024 12:56:50 05/24/2024 US, obstetric, biophysical profile + non-stress test completed [email or web address] [address], [place], [address], 05/25/2024 12:54:25 05/24/2024 non-stress test completed [email or web address] [place] [address], [place], [address], 05/24/2024 11:52:16 Procedure Notes None recorded. Medical [...] completed Not Available Not Available Not Available labetalol 100 mg tablet TAKE 2 TABLETS BY MOUTH EVERY 12 HOURS active Not Available Not Available No t Available albuterol sulfate HFA 90 mcg/actuati on [...] Updated DateTime 05/24/2024 165.1 cm 52.6 kg/m2 138706.1 9 g 143 mm[Hg] 80 mm[Hg] Amber Barrientos [facility] 5 11:50:39 Social History Question Answer [...] Or The Highest Degree You Have Received? [id number] Information not available 12/03/2023 What Is Your [...] Anxious, Or Unable To Sleep At Night)? [id number] Information not available 12/03/2023 Do You Use Any Illicit Or Recreational Drugs? Yes Information not available 12/03/2023 Do You Use Sunscreen Routinely? Yes Information not available 12/03/2023 Have You Used IV Drugs? No Information not available 12/03/2023 Sex: Unknown Functional Status Question Answer Note LastModified by Organizat ion Details LastModified Time Do you have difficulty walking or climbing stairs? No [email or web address] Information not available 05/10/2024 Are you able to walk? YESWOREST Information not available 12/03/2023 Are you able to care for yourself? Yes [email or web address] Information not available 05/10/2024 Do you have difficulty dressing or bathing? No [email or web address] Information not available 05/10/2024 What is your [...] Diagnosis ICD10 Code Diagnosis Note Kate Greenwood [place] [address] [address] 10/29/2023 11:35:12 10/29/2023 12:27:19 Uterine size for dates discrepancy 761793269 O26.841 Z3A.01 BIPIN RODRÍGUEZ MD [place] [address] [address] 10/29/2023 11:39:02 10/29/2023 13:09:43 Nausea and vomiting 80075614 R11.2 test positive 530190473 Z32.01 1. Exam today within normal limits.2. Ultrasound today confirms GA and viability. EDC . GC/Clamydi a testing done: will f/u as indicated. 4. ACOG guidelines and plan of care for reviewed with patient. All questions answered.5 . Return to office at 12 weeks for new OB visit6. Will need new OB labs at next visit.7. Genetic screening: [facility]. [id number] [facility] [address],[place] [address] 12/03/2023 11:47:08 12/03/2023 12:45:41 screening 246134496 Z36.82 Z3A.12 [id number] [facility] [address],[place] [address] 12/03/2023 11:49:53 12/03/2023 13:47:17 Routine care 054392745 Z34.91 screening 2437 07173 Z36.0 [id number] BIPIN RODRÍGUEZ MD [place] [address],[place] [address] 01/02/2024 12:02:11 01/02/2024 13:05:31 Routine care 597484810 Z34.91 - continue PNV [id number] Kate Greenwood [place] [address],[place] [address] 02/02/2024 11:24:42 02/02/2024 12:43:33 screening for malformation 052897192 Z36.3 Z3A.20 [id number] BIPIN RODRÍGUEZ MD [place] [address],[place] [address] 02/02/2024 11:25:05 02/02/2024 13:57:19 Body mass index 40+ - severely obese 068398843 Z68.43 - testing at 34 weeks Gestation period, 20 weeks 42704154 Z3A.20 - continue PNV [id number] BIPIN RODRÍGUEZ MD [place] [address],[place] [address] 03/01/2024 11:58:10 03/01/2024 13:57:27 Maternal obesity complicating , childbirth and the puerperium, antepartum 6468666372 07 O99.212 Gestation period, 24 weeks 758233484 Z3A.24 [id number] Kate Greenwood [place] [address],[place] [address] 03/01/2024 11:58:57 03/01/2024 12:38:51 screening 147954976 Z36.2 O99.212 Z3A.24 [id number] BIPIN RODRÍGUEZ MD [place] [address],[place] [address] 03/29/2024 11:18:45 03/29/2024 11:56:51 Maternal obesity complicating , childbirth and the puerperium, antepartum 1175105630 07 O99.212 - plan for testing at 34 weeks Gestation period, 28 weeks 05942932 Z3A.28 [id number] BIPIN RODRÍGUEZ MD [place] [address],[place] [address] 04/16/2024 14:39:31 04/19/2024 18:24:44 Gestational diabetes mellitus [id number] O24.410 Maternal o besity complicating , childbirth and the puerperium, antepartum [id number] 07 O99.212 - plan for testing at 34 weeks Gestation period, 31 weeks [id number] Z3A.31 [id number] Fabiola Philly [place] [address],[place] [address] 04/27/2024 10:35:14 04/27/2024 11:06:01 Gestational diabetes mellitus 22803094 O24.414 O99.210 O14.93 Z3A.33 [id number] Amber Barrientos [place] [address],[place] [address] 04/27/2024 10:35:32 04/27/2024 14:34:56 Maternal obesity complicating , childbirth and the puerperium, antepartum [id number] 07 O99.212 [id number] BIPIN RODRÍGUEZ MD [place] [address],[place] [address] 04/27/2024 10:36:48 04/27/2024 14:34:49 Mild pre-eclampsia [id number] O14.03 - twice weekly testing- weekly labs- 37 week induction Gestationa l diabetes mellitus class A2 57430487 O24.414 - just started lantus 10u- continue to monitor glucose closely Maternal o besity complicating , childbirth and the puerperium, antepartum 3611001185 07 O99.212 Gestation period, 33 weeks 78682153 Z3A.33 [id number] [facility] [address],[place] [address] 04/29/2024 09:58:29 04/29/2024 15:13:41 Maternal obesity complicating , childbirth and the puerperium, antepartum [id number] 07 O99.212 [id number] Kate Greenwood [place] [address],[place] [address] 05/03/2024 10:57:51 05/03/2024 11:34:01 Gestational diabetes mellitus 05291933 O24.414 Z3A.33 [id number] [facility] [address],[place] [address] 05/03/2024 10:58:29 05/03/2024 12:33:38 Gestational diabetes mellitus 46170335 O24.410 [id number] [facility] [address],[place] [address] 05/06/2024 10:02:41 05/06/2024 11:03:39 Gestational diabetes mellitus 60672582 O24.410 [id number] BIPIN RODRÍGUEZ MD [place] [address],[place] [address] 05/06/2024 10:03:12 05/06/2024 11:52:45 -induced hypertension 71302695 O13.9 - asymptomat ic- BP mild range- return precaution s discussed Maternal o besity complicating , childbirth and the puerperium, antepartum 4872842297 07 O99.212 Gestationa l diabetes mellitus class A2 52058695 O24.414 - increase to lantus 25u- continue to monitor glucose closely Gestation period, 34 weeks 57753669 Z3A.34 [id number] [facility] [address],[place] [address] 05/10/2024 10:31:39 05/10/2024 11:06:29 -induced hypertension 26047951 O13.9 O24.414 O99.213 Z3A.34 [id number] CHRIS Dickey [place] [address],[place] [address] 05/10/2024 10:31:55 05/10/2024 11:54:07 Maternal obesity complicating , childbirth and the puerperium, antepartum 2511650891 07 O99.212 [id number] BIPIN RODRÍGUEZ MD [place] [address],[place] [address] 05/10/2024 10:32:20 05/10/2024 12:01:39 Low back pain in 9802496032 106 O26.899 Gestationa l diabetes mellitus class A2 35116326 O24.414 - increase to lantus 25u at night, 10u in AM- continue to monitor glucose closely Pre-eclampsia 737894762 O14.03 Gestation period, 34 weeks 53076745 Z3A.34 [id number] Jaci Alarcon [place] [address],[place] [address] 05/13/2024 10:33:11 05/13/2024 17:18:50 Body mass index 40+ - severely obese 175575572 Z68.43 [id number] [facility] [address],[place] [address] 05/17/2024 10:31:04 05/17/2024 11:20:53 Gestational diabetes mellitus 87339342 O24.414 O99.213 Z3A.35 [id number] Amber Barrientos [place] [address] [place] [address] 05/17/2024 10:31:41 05/17/2024 12:00:35 Maternal obesity complicating , childbirth and the puerperium, antepartum 7090996641 07 O99.212 [id number] BIPIN RODRÍGUEZ MD [place] [address],[place] [address] 05/17/2024 10:31:57 05/17/2024 15:19:18 Gestational diabetes mellitus class A2 73964964 O24.414 - continue lantus 25u at night, 10u in AM; has not taken AM lantus in 2 days due to lower sugars.- continue to monitor glucose closely Mild pre-eclampsia 34098 007 O14.03 - twice weekly testing; BPP 09/14 today, will send to hospital for further monitoring - weekly labs- 37 week induction Maternal o besity complicating , childbirth and the puerperium, antepartum 5608537184 07 O99.212 Gestation period, 35 weeks 94742246 Z3A.35 - GBS collected today [id number] Amber Barrientos [place] [address],[place] [address] 05/20/2024 10:33:19 05/20/2024 11:25:57 Maternal obesity complicating , childbirth and the puerperium, antepartum 0016259677 07 O99.212 [id number] Kate Greenwood [place] [address],[place] [address] 05/24/2024 10:33:47 05/24/2024 11:42:00 Gestational diabetes mellitus 26548379 O24.414 O99.213 Z3A.36 [id number] Amber Barrientos [place] [address],[place] [address] 05/24/2024 10:34:51 05/24/2024 11:54:56 Maternal obesity complicating , childbirth and the puerperium, antepartum 4745596890 07 O99.212 [id number] BIPIN RODRÍGUEZ MD [place] [address],[place] [address] 05/24/2024 10:35:17 05/27/2024 01:13:09 Body mass index 40+ - severely obese 927463298 Z68.43 - testing at 34 weeks Gestationa l diabetes mellitus class A2 80471757 O24.414 - continue lantus 25u at night, 10u in AM; has not taken AM lantus in 2 days due to lower sugars.- continue to monitor glucose closely Mild pre-eclampsia 08696 007 O14.03 - twice weekly testing; BPP 09/14 today, will send to hospital for induction- weekly labs wnl Gestation period, 36 weeks 92228413 Z3A.36 - GBS neg [id number] BIPIN RODRÍGUEZ MD [place] [address],[place] [address] 05/25/2024 09:02:39 05/25/2024 09:32:51 Health Concerns Section Related Observation LastModified by Organization Detai ls LastModified Time None Recorded Concern Status LastModified by Organization Details LastModified Time None Recorded Advance Directives Directive None Recorded Payers Encounter Date Sequence Insurance Name Policy Number Policy Li Covered Member ID Li Member ID Guarantor Name 05/24/2024 1 [employer] - CHOICE (POS II) [id number] Cori Dani [id number] Cori Dani 05/24/2024 1 [employer] - CHOICE (POS II) [id number] Cori Maverick [id number] Cori Maverick 05/24/2024 1 [employer] - CHOICE (POS II) [id number] Cori Maverick [id number] Cori Dani 05/25/2024 1 [employer] - CHOICE (POS II) [id number] Cori Maverick [id number] Cori Dani OBGyn Episode Ob Episode Information Episode Created Date Number of Fetuses Patient Bloodtype Patient rh Status Prepregnancy Weight lbs Domestic Partner Domestic Partner Phone Father Name Senior Administrative Associate Status 10/29/19 24 1 A Positive OPEN Fetus Data First Name Last Name Admitted to NICU Weight (g) Sex Living Outcome Pediatric Complications Fetus ID Race Codes Race Delivery Type [id number] Problems Problem Notes UDS +THCComplete anatomy - [facility] 04/08 & 04/22/24 USincomplete cardiac views MFM echo referral faxed 04/16- echo in chart (recommend pediatric cardiolgy [facility] arrange ) Problem Name Start Date End Date Resolution Snomed Code Not e Body mass index 40+ - severely obese [id number] dereje ting @ 34wks Alpha thalassemia 12/18/2023 11502305 s ilent carrier, low risk Pre-eclampsia 910136877 LD lab s 0.752xwkly testing Gestational diabetes mellitus 08600591 BS QID and layton cruz growth pt scheduled Bhumika [facility] 04/22/24Lantus 10u in AM, 25u @ HS DT referral faxed 04/16 [facility] 04/22 Appt Adan Calculation Initial Adan Date [...] Weight in lbs Pre/Post Dialysis Refused Weight 289.960062870654 BP Diastolic BP Location Tested BP Systolic [...] Weight in lbs Pre/Post Dialysis Refused Weight 291.912052167050 BP Diastolic BP Location Tested BP Systolic BP Type 84 138 Fetus Heart Rate Present Fetus Movement Comments Patient presents to [facility]. Nausea much improved! Has not needed [...] Type Weight in lbs Pre/Post Dialysis Refused 297.659160163848 BP Diastolic BP Location Tested BP Systolic [...] Type Weight in lbs Pre/Post Dialysis Refused 308.430612281464 BP Diastolic BP Location Tested BP Systolic [...] Type Weight in lbs Pre/Post Dialysis Refused 315.451148660525 BP Diastolic BP Location Tested BP Systolic BP Type 74 L arm 136 sitting Fetus Heart Rate Present A Present Fetus Movement A Yes Comments Patient c/o of slight swelli ng in feet. No bleeding or cramping. Good movement. EFW 59%, ESTHER normal. LVOT and AA seen, needs RVOT and DA still. Will send to [facility] for completion of anatomy US. Discussed gct and labs for next visit. RTC 4 weeks. Flowsheet Date 03/29/2024 March Score Blood Edema Fundus Height Fundus Units Glucose Ketones Leukocytes Nitrite Labor Signs Protein Cervic Dilation Cervic Effacement Cervic Station neg none Type Weight in lbs Pre/Post Dialysis Refused Weight 311.154233573452 BP Diastolic BP Location Tested BP Systolic BP Type 84 L arm 132 sitting Fetus Heart Rate Present A 150 Fetus Movement A Yes Comments Good movement. No cram ping or bleeding. Saw [facility] for completion of anatomy, heart views still suboptimal. Repeat US scheduled 1/2 with [facility]. GCT and labs today. RTC 2 weeks. Need to discuss tdap at next appointment. Flowsheet Date 04/16/2024 March Score Blood Edema Fundus Height Fundus Units Glucose Ketones Leukocytes Nitrite Labor Signs Protein Cervic Dilation Cervic Effacement Cervic Station Type Weight in lbs Pre/Post Dialysis Refused 316.522384851969 BP Diastolic BP Location Tested BP Systolic BP Type 87 L arm 143 sitting Fetus Heart Rate Present A 145 Fetus Movement A Yes Comments Good movement. No cram ping or bleeding. Diagnosed with GDM, started tracking BG yesterday, PP wnl, fasting elevated x1 (125). Discussed diet, order sent for diet teaching. Discussed parameters for starting insulin. Also discussed incomplete anatomy at [facility], recommend echo, order sent. Will start [...] Weight in lbs Pre/Post Dialysis Refused Weight 314.167947321419 BP Diastolic BP Location Tested BP Systolic [...] Weight in lbs Pre/Post Dialysis Refused Weight 316.570931840957 BP Diastolic BP Location Tested BP Systolic [...] Weight in lbs Pre/Post Dialysis Refused Weight 313.468826671362 BP Diastolic BP Location Tested BP Systolic [...] Weight in lbs Pre/Post Dialysis Refused Weight 313.786917716609 BP Diastolic BP Location Tested BP Systolic [...] Weight in lbs Pre/Post Dialysis Refused Weight 313.450261135123 BP Diastolic BP Location Tested BP Systolic [...] Weight in lbs Pre/Post Dialysis Refused Weight 315.23859026532 BP Diastolic BP Location Tested BP Systolic [...] Weight in lbs Pre/Post Dialysis Refused Weight 319.431150106780 BP Diastolic BP Location Tested BP Systolic [...] Weight in lbs Pre/Post Dialysis Refused Weight 316.171300919143 BP Diastolic BP Location Tested BP Systolic BP Type 80 L arm 143 sitting Fetus Heart Rate Present A 140 Fetus Movement A Yes Comments Good movement. Some ir regular cramping. No bleeding. BPP 10 today, will send to hospital for induction at this time. Discussed induction plan. Asymptomatic from preeclampsia perspective. Normal blood glucose. Reactive NST, patient to present for induction. Flowsheet Date 05/25/2024 March Score Blood Edema Fundus Height Fundus Units Glucose Ketones Leukocytes Nitrite Labor Signs Protein Cervic Dilation Cervic Effacement Cervic Station Type Weight in lbs Pre/Post Dialysis Refused BP Diastolic BP Location Tested BP Systolic BP Type Fetus Heart Rate Present Fetus Movement Comments Flowsheet Date 05/31/2024 March Score Blood Edema Fundus Height Fundus [...]
[2024-05-31] MEDS: LABETALOL HCL 100 MG TABLET PO (11:11)
[2024-05-31 11:17] VITALS: BP 151/84; PULSE 78
== END 2024-05-31 11:55 | disposition home or self-care (01) ==
LOC: ANHOBOP 09:59 → ANHOBPP 10:01 → ANHOBOP 10:42
PROVIDERS: Visit Provider Obstetrics & Gynecology
DX: O90.89 Other complications of the puerperium, not elsewhere classified (principal)
CPT/HCPCS: 36415; 80053; 84550; 85025; A9270